=== PATIENT | female | born 1940 | race Caucasian/White ===

== ENCOUNTER 2020-02-22 09:31 | Outpatient (REF) | payer MEDICARE, OTHER, SELFPAY ==
[2020-02-22 11:07] LABS: Alanine Aminotransferase 8 U/L (0-31); Anion Gap 16 (12-20); Blood Urea Nitrogen 20 mg/dL (9-16); Calcium 10.1 mg/dL (8.4-10.2); Carbon Dioxide 24 mmol/L (22-29); Chloride 103 mmol/L (96-108); Estimated Glomerular Filt Rate 32; Potassium 4.1 mmol/l (3.3-5.1); Sodium 139 mmol/L (135-145)
== END 2020-02-22 09:32 | disposition home or self-care (01) ==
LOC: HO.LAB 09:31
PROVIDERS: PCP Family Medicine; Visit Provider Family Medicine
DX: I10 Essential (primary) hypertension (principal); E78.00 Pure hypercholesterolemia, unspecified; Z79.899 Other long term (current) drug therapy; E83.52 Hypercalcemia
CPT/HCPCS: 36415; 80051; 82310; 82550; 82565; 84460; 84520

== ENCOUNTER 2020-05-09 11:58 | Emergency (ER) | payer MEDICARE, OTHER, SELFPAY ==
--- NOTE | 2020-05-09 | ECG_ITS ---
Test Reason : FALL Blood Pressure : / mmHG Vent. Rate : 080 BPM Atrial Rate : 080 BPM P-R Int : 178 ms QRS Dur : 102 ms QT Int : 382 ms P-R-T Axes : 086 068 080 degrees QTc Int : 440 ms Normal sinus rhythm Possible Left atrial enlargement Nonspecific ST abnormality Abnormal ECG When compared with ECG of 01-MAY-2013 11:31, No significant change was found Referred By: Generic ED Physician Electronically Signed By:ERYN SÁNCHEZ MD
--- NOTE | ~2020-05-09 | XR_ITS ---
EXAMINATION: XR CHEST CLINICAL INFORMATION: Chest pain COMPARISON: Chest 04/19/2019 TECHNIQUE: Frontal view of the chest was obtained. FINDINGS: The lungs are well-expanded with bilateral apical pleural thickening and scarring. Heart size and pulmonary vascularity is normal. No gross bony abnormality seen. XR/XR chest 1V IMPRESSION: Bilateral apical pleural thickening and scarring. No acute process in the chest.
--- NOTE | ~2020-05-09 | CT_ITS ---
EXAMINATION: CT HEAD WITHOUT CONTRAST CLINICAL INFORMATION: Head injury COMPARISON: Previous head CT July 2006 TECHNIQUE: Contiguous axial imaging was performed from the skull base to vertex without intravenous administration of contrast. This CT examination was performed using dose optimization techniques as appropriate, variously including the following: *Automated exposure control *Adjustment of mA and/or kV according to patient size (this includes techniques or standardized protocols for targeted exams where dose is matched to indication/reason for exam; i.e. extremities or head) *Use of iterative reconstruction technique DLP: 631 mGy-cm FINDINGS: There is no evidence of acute intracranial hemorrhage or territorial infarction. No abnormal mass effect or midline shift is seen. Bronson to white matter differentiation is well preserved. No extra-axial fluid collections are identified. The ventricles are normal in size. There is no abnormal attenuation within the brain parenchyma. The osseous structures and soft tissues are normal. The mastoid air cells and visualized portions of the paranasal sinuses are well aerated. CT/CT head/brain wo con IMPRESSION: Unremarkable exam.
[2020-05-09 12:13] VITALS: BP 120/67; PULSE 82; TEMP 36.8; O2SAT 100; BMI 20.5
--- NOTE | 2020-05-09 14:04 | ED.SYNCOPE ---
HPI - Syncope General Chief Complaint: Fall Stated Complaint: FALL - HEAD INJURY Time Seen by Provider: 05/09/20 13:54 History of Present Illness HPI narrative: This is a 79 years old female presented to the emergency department stating that this morning at about 07:00 had syncopal episode, she states she was in the kitchen she end up in the floor. She denies any chest pain, shortness of breath, fever. She arrived fully ambulatory with the son MD complaint: loss of consciousness Onset (ago): hour(s) (7) Witnessed: No Related Data Home Medications Medication Instructions Recorded Confirmed amitriptyline 1 tab PO BEDTIME 05/09/20 05/09/20 bupropion HCl 1 tab PO QAM 05/09/20 05/09/20 gabapentin 1 cap PO DAILY 05/09/20 05/09/20 omeprazole 1 cap PO BID 05/09/20 05/09/20 simvastatin 1 tab PO DAILY 05/09/20 05/09/20 valsartan [Diovan] 1 tab PO DAILY 05/09/20 05/09/20 Previous Rx's Medication Instructions Recorded solifenacin 10 mg tablet 10 mg PO DAILY 30 Days #30 tab 03/04/20 Allergies Allergy/AdvReac Type Severity Reaction Status Date / Time citalopram [Celexa] Allergy Unknown Verified 02/16/19 00:00 paroxetine [Paxil] Allergy Unknown Verified 02/16/19 00:00 No Known Allergies Allergy Unverified 10/25/19 15:53 [No Known Allergies*] Review of Systems Review of Systems: Yes all other systems are reviewed and are negative ENT: Denies neck pain Cardiovascular: Cardiovascular: Denies chest pain Respiratory: Respiratory: Reports no additional respiratory complaints Musculoskeletal: Musculoskeletal: Denies neck pain Neurologic: Reports system reviewed and no additional complaints, except as documented PMFSH Social History Social History Alcohol intake: current Alcohol intake frequency: holidays/special occasions only Alcohol type: beer Smoking Status: Former smoker Smoked in Last 30 Days: No Use of substances other than those prescribed or required for medical reasons: No Advance Directives: No Advance Directives Information Provided: No Physical Exam Vital Signs: Vital Signs: Last Vital Signs Temp 97.6 F 05/09/20 14:08 Pulse 78 05/09/20 14:08 Resp 16 05/09/20 14:08 BP 150/69 H 05/09/20 14:08 Pulse Ox 100 05/09/20 14:08 Body Mass Index 20.5 Const: General: cooperative Orientation/consciousness: oriented to person, oriented to place, oriented to time and patient oriented x3 HENMT: Other: 3 cm laceration occipital area Head: Yes normal to inspection and Yes No palpable skull fracture present Eyes: General: appearance normal, both eyes and all related structures Neck: Neck: Yes normal visual inspection, Yes full ROM and Yes no lymphadenopathy Chest: Chest palpation & inspection: normal inspection of the chest Resp: Auscultation: clear to auscultation bilaterally Cardio: Rate: regular rate Rhythm: regular rhythm GI: Palpation (GI): Soft to palpation and nontender Skin: General skin exam: no rashes or lesions noted and elasticity normal Neuro: General: oriented to person, oriented to place, oriented to time and patient oriented x3 Course Reevaluation(s) Reevaluation #1: I discussed with the patient his son the possibility of admission, the patient wants to go home a she understand the risk . I told her we were going to monitor for 24 hours but she rather go home patient the son at bedside is comfortable with the plan. Patient declined admission Time: 16:52 Procedures Laceration head laceration: Site: scalp (3 cm laceration occipital area) Size (cm): 3 Description: linear Depth: simple, single layer Local Anesthetic: lidocaine 1% Skin layer closed with: other (Edilma #4) MDM - Syncope Lab Data Result diagrams: 05/09/20 14:34 05/09/20 14:34 Labs: Lab Results 05/09/20 05/09/20 05/09/20 Range/Units 14:34 14:34 14:34 WBC 7.5 (4.8-10.8) X10*3/uL RBC 4.13 L (4.20-5.50) X10*6/uL Hgb 12.3 (12.0-16.0) g/dl Hct 37.3 (37-47) % MCV 90.3 (80-98) fL MCH 29.8 (27.0-33.0) pg MCHC 33.0 (31.0-35.0) g/dl RDW 12.8 (11.0-16.0) % Plt Count 162 (160-400) X10*3/uL MPV 9.6 (9.4-12.3) fL Immature Gran % (Auto) 0.1 (0.0-0.4) % Neut % (Auto) 70.3 (45-73) % Lymph % (Auto) 22.7 (20-40) % [place] % (Auto) 6.4 (2-11) % Eos % (Auto) 0.0 (0-4) % Baso % (Auto) 0.5 (0-2) % Lymph # (Auto) 1.7 (1.2-4.9) X10*3/uL [place] # (Auto) 0.5 (0.1-1.2) X10*3/uL Eos # (Auto) 0.0 (0.0-0.4) X10*3/uL Baso # (Auto) 0.0 (0.0-0.2) X10*3/uL Abs Immat Gran (auto) 0.01 (0.00-0.03) X10*3/uL Absolute Neuts (auto) 5.2 (2.0-8.3) X10*3/uL Absolute Nucleated RBC 0.000 (0.0-0.012) X10*3/uL Nucleated RBC % (auto) 0.0 (0.0-0.2) /100WBC PT 12.9 (10.8-13.0) SEC INR 1.1 (0.9-1.1) Sodium 129 L (135-145) mmol/L Potassium 4.8 (3.3-5.1) mmol/L Chloride 101 (96-108) mmol/L Carbon Dioxide 24 (22-29) mmol/L Anion Gap 9 L (12-20) BUN 20 H (9-16) mg/dL Creatinine 1.61 H (0.5-1.4) mg/dL Estim Creat Clear Calc 25.1 Estimated GFR 31 Random Glucose 92 (60-115) mg/dL Calcium 9.8 (8.4-10.2) mg/dL Total Bilirubin 0.8 (0.0-1.0) mg/dL AST 32 H (5-31) U/L ALT 13 (0-31) U/L Alkaline Phosphatase 68 (39-117) U/L Troponin I High Sens (<3.5-17.0) ng/L Total Protein 6.9 (6.5-8.0) g/dL Albumin 4.2 (3.5-5.0) g/dL 05/09/20 Range/Units 14:34 WBC (4.8-10.8) X10*3/uL RBC (4.20-5.50) X10*6/uL Hgb (12.0-16.0) g/dl Hct (37-47) % MCV (80-98) fL MCH (27.0-33.0) pg MCHC (31.0-35.0) g/dl RDW (11.0-16.0) % Plt Count (160-400) X10*3/uL MPV (9.4-12.3) fL Immature Gran % (Auto) (0.0-0.4) % Neut % (Auto) (45-73) % Lymph % (Auto) (20-40) % [place] % (Auto) (2-11) % Eos % (Auto) (0-4) % Baso % (Auto) (0-2) % Lymph # (Auto) (1.2-4.9) X10*3/uL [place] # (Auto) (0.1-1.2) X10*3/uL Eos # (Auto) (0.0-0.4) X10*3/uL Baso # (Auto) (0.0-0.2) X10*3/uL Abs Immat Gran (auto) (0.00-0.03) X10*3/uL Absolute Neuts (auto) (2.0-8.3) X10*3/uL Absolute Nucleated RBC (0.0-0.012) X10*3/uL Nucleated RBC % (auto) (0.0-0.2) /100WBC PT (10.8-13.0) SEC INR (0.9-1.1) Sodium (135-145) mmol/L Potassium (3.3-5.1) mmol/L Chloride (96-108) mmol/L Carbon Dioxide (22-29) mmol/L Anion Gap (12-20) BUN (9-16) mg/dL Creatinine (0.5-1.4) mg/dL Estim Creat Clear Calc Estimated GFR Random Glucose (60-115) mg/dL Calcium (8.4-10.2) mg/dL Total Bilirubin (0.0-1.0) mg/dL AST (5-31) U/L ALT (0-31) U/L Alkaline Phosphatase (39-117) U/L Troponin I High Sens 6.5 (<3.5-17.0) ng/L Total Protein (6.5-8.0) g/dL Albumin (3.5-5.0) g/dL ECG Data Attestation: I personally reviewed and interpreted this ECG as follows: Pacemaker model: Electrocardiogram shows a normal sinus rhythm a rate is 80 normal intervals Discharge Plan Discharge Clinical Impression: Syncope, Laceration of scalp Patient Disposition: Home, Self-Care Instructions: Laceration (ED), Syncope (ED) Additional Instructions: You were seen today in the emergency room because of a laceration of the scalp and a syncopal episode you told us that you prefer to go home , the edilma that she will be removed in about 7-10 days either by your primary care physician or in the emergency department Prescriptions: No Action solifenacin 10 mg tablet 10 mg PO DAILY 30 Days Qty: 30 RF: 1 simvastatin 40 mg tablet 1 tab PO DAILY RF: 0 amitriptyline 25 mg tablet 1 tab PO BEDTIME RF: 0 valsartan [Diovan] 320 mg tablet 1 tab PO DAILY RF: 0 gabapentin 300 mg capsule 1 cap PO DAILY RF: 0 omeprazole 20 mg capsule,delayed release(DR/EC) 1 cap PO BID RF: 0 bupropion HCl 150 mg tablet extended release 24 hr 1 tab PO QAM RF: 0
[2020-05-09 14:08] VITALS: BP 150/69; PULSE 78; RESP 16; TEMP 36.4; O2SAT 100
[2020-05-09] MEDS: 0.9 % Sodium Chloride 1,000 ML 999 ML IVCONT (14:41)
[2020-05-09 14:47] LABS: MANUAL DIFF FLAG NO
[2020-05-09 14:48] LABS: Basophils Percent Auto 0.5 % (0-2); Hematocrit 37.3 % (37-47); Hemoglobin 12.3 g/dl (12.0-16.0); Imm Gran Abs Auto 0.01 X10*3/uL (0.00-0.03); Imm Gran Pct Auto 0.1 % (0.0-0.4); Lymphocytes Absolute Auto 1.7 X10*3/uL (1.2-4.9); Lymphocytes Percent Auto 22.7 % (20-40); Mean Corpuscular Hemoglobin 29.8 pg (27.0-33.0); Mean Corpuscular Volume 90.3 fL (80-98); Mean Platelet Volume 9.6 fL (9.4-12.3); Monocytes Absolute Auto 0.5 X10*3/uL (0.1-1.2); Monocytes Percent Auto 6.4 % (2-11); Neutrophils Absolute Auto 5.2 X10*3/uL (2.0-8.3); Neutrophils Percent Auto 70.3 % (45-73); Platelet Count 162 X10*3/uL (160-400); Red Blood Count 4.13 X10*6/uL (4.20-5.50); Red Cell Distribution Width 12.8 % (11.0-16.0); White Blood Count 7.5 X10*3/uL (4.8-10.8)
[2020-05-09 14:53] LABS: INTERNATIONAL NORM RATIO 1.1 (0.9-1.1); Prothrombin Time 12.9 SEC (10.8-13.0)
[2020-05-09 15:16] LABS: Alanine Aminotransferase 13 U/L (0-31); Albumin Level 4.2 g/dL (3.5-5.0); Alkaline Phosphatase 68 U/L (39-117); Anion Gap 9 (12-20); Aspartate Amino Transferase 32 U/L (5-31); Bilirubin Total 0.8 mg/dL (0.0-1.0); Blood Urea Nitrogen 20 mg/dL (9-16); Calcium 9.8 mg/dL (8.4-10.2); Carbon Dioxide 24 mmol/L (22-29); Chloride 101 mmol/L (96-108); Creatinine Clr Calc Pharmacy 25.1; Estimated Glomerular Filt Rate 31; Glucose Random 92 mg/dL (60-115); Potassium 4.8 mmol/L (3.3-5.1); Sodium 129 mmol/L (135-145); Total Protein 6.9 g/dL (6.5-8.0)
[2020-05-09 15:17] LABS: Troponin-I High Sensitivity 6.5 ng/L (<3.5-17.0)
[2020-05-09 16:55] VITALS: BP 143/61; PULSE 83
[2020-05-09 16:56] VITALS: BP 125/70; PULSE 78
[2020-05-09 16:57] VITALS: BP 126/65; PULSE 90
[2020-05-09] MEDS: Diphth,Pertus(ACell),Tet Adult 0.5 ML SYRINGE IM (17:25)
[2020-05-09] MEDS: Lidocaine HCl 1 % 20 ML VIAL SUBCUT (17:28)
== END 2020-05-09 17:46 | disposition home or self-care (01) ==
PROVIDERS: Emergency Provider Emergency Medicine; PCP Family Medicine
DX: S09.90XA Unspecified injury of head, initial encounter (principal); R55 Syncope and collapse; Z79.899 Other long term (current) drug therapy; Z87.891 Personal history of nicotine dependence; S01.01XA Laceration without foreign body of scalp, initial encounter; W18.30XA Fall on same level, unspecified, initial encounter; Y93.9 Activity, unspecified; Y92.9 Unspecified place or not applicable; Y99.9 Unspecified external cause status
CPT/HCPCS: 12002; 36415; 70450; 71045; 80053; 84484; 85025; 85610; 90471; 90715; 93005; 96360; 99284

== ENCOUNTER 2020-05-19 16:50 | Outpatient (REF) | payer MEDICARE, OTHER, SELFPAY ==
[2020-05-19 18:39] LABS: Alanine Aminotransferase 8 U/L (0-31); Albumin Level 4.4 g/dL (3.5-5.0); Alkaline Phosphatase 87 U/L (39-117); Anion Gap 16 (12-20); Aspartate Amino Transferase 19 U/L (5-31); Bilirubin Total 0.6 mg/dL (0.0-1.0); Blood Urea Nitrogen 22 mg/dL (9-16); Calcium 10.1 mg/dL (8.4-10.2); Carbon Dioxide 23 mmol/L (22-29); Chloride 103 mmol/L (96-108); Estimated Glomerular Filt Rate 36; Glucose Random 97 mg/dL (60-115); Potassium 4.4 mmol/L (3.3-5.1); Sodium 138 mmol/L (135-145); Total Protein 7.2 g/dL (6.5-8.0)
== END 2020-05-19 16:51 | disposition home or self-care (01) ==
LOC: HO.LDS 16:50
PROVIDERS: PCP Family Medicine; Visit Provider Family Medicine
DX: R63.4 Abnormal weight loss (principal)
CPT/HCPCS: 36415; 80053

== ENCOUNTER 2020-06-18 10:56 | Outpatient (REF) | payer MEDICARE, OTHER, SELFPAY ==
--- NOTE | ~2020-06-18 | MM_ITS ---
EXAMINATION: MM SCREENING DIGITAL BREAST TOMOSYNTHESIS, BILATERAL CLINICAL INFORMATION: Screening. Asymptomatic. The lifetime risk of breast cancer based on the Tyrer-Cuzick Model is 2%. COMPARISON: Mammography: 04/13/2019, 04/07/2018, 03/03/2017, 02/18/2016, 12/30/2014 TECHNIQUE: Digital breast tomosynthesis is performed in both the craniocaudal and mediolateral oblique views along with computer-aided detection (CAD). Synthesized 2D images are generated from the tomosynthesis. Additional right MLO and exaggerated left CC views are provided. FINDINGS: There are scattered areas of fibroglandular density (ACR BI-RADS breast composition Category b). There are no significant masses, abnormal calcifications, or other abnormalities. There are shifting fibroglandular densities related to positioning from year to year is expected. No developing density. No significant changes. MM/MM tomosynthesis screening BI IMPRESSION: No mammographic evidence of malignancy. ASSESSMENT: BI-RADS 2: Benign RECOMMENDATION: Routine annual mammography screening. This patient's information was entered into a reminder system with a target due date for their next mammogram.
== END 2020-06-18 10:57 | disposition home or self-care (01) ==
LOC: HO.MAMMO 10:56
PROVIDERS: Visit Provider Family Medicine
DX: Z12.31 Encounter for screening mammogram for malignant neoplasm of breast (principal)
CPT/HCPCS: 77063; 77067

== ENCOUNTER → 2020-06-30 11:00 | Outpatient (BNVA) | payer MEDICARE, OTHER, SELFPAY | PROVIDERS: PCP Family Medicine; Visit Provider Surgery | DX: K64.8 Other hemorrhoids (principal) | CPT/HCPCS: 46600; 99202 ==

== ENCOUNTER → 2020-08-01 09:27 | Outpatient (REF) | payer MEDICARE, OTHER, SELFPAY ==
--- NOTE | 2020-08-01 09:30 | CA_ITS ---
Transthoracic Echocardiogram Patient (Last, First, Middle): Imelda Carolina, Gender: Female Date of : 1940 Age: 79 Procedure Date: 08/01/2020 Procedure Type: Transthoracic Echocardiogram Location: OP Height: 162.56 cm Weight: 50.35 kg BSA: 1.52 m2 Heart Rate: bpm BP: 120 / 64 mmHg Disposal Man: HADLEY Referring MD: Omid Torres MD Symptoms: SOB Conclusions: - Normal left ventricular size, thickness, systolic function, and wall motion. - Normal right ventricular cavity size and systolic function. - Both atria are normal in size. No obvious extrinsic compression of the right atrium on this study. Findings Left Ventricle Normal left ventricular size, thickness, systolic function, and wall motion. The visually estimated ejection fraction is between 55-60%. Abnormal diastolic function is noted. Spectral Doppler is indicative of an impaired relaxation filling pattern. E/E prime ratio is <8, consistent with normal filling pressures. Right Ventricle Normal right ventricular cavity size and systolic function. Atria Both atria are normal in size. Aortic Valve There is mild calcification of the aortic valve. There is no aortic valve stenosis. There is no aortic valve regurgitation. Mitral Valve Normal mitral valve structure and function. There is trace mitral valve regurgitation. There is no mitral valve stenosis. Pulmonic Valve The pulmonic valve is likely normal. Tricuspid Valve Normal tricuspid valve structure and function. There is no tricuspid valve regurgitation. Normal right atrial pressure. There is no evidence of pulmonary hypertension. Great Vessels All visible segments of the aorta are normal in size. The pulmonary artery was not well visualized. Venous The inferior vena cava is normal in size and collapses greater than 50% with inspiration. Pericardium/Pleural There is no evidence of pericardial effusion. Prior Study Comparison No significant change compared to prior study dated: 03/03/2016. Measurements 2D Linear Measurements IVSd: 0.83 0.6-0.9/0.6-1.0 cm LVIDd: 4.07 3.9-5.3/4.2-5.9 cm LVIDd Index: 2.68 2.4-3.2/2.2-3.1 cm/m2 LVIDs: 2.73 2.0-3.6 cm LVPWd: 0.78 0.7-1.1 cm Ao Root: 2.80 2.1-3.5 cm LA Diam: 2.30 2.7-3.8/3.0-4.0 cm LAIDs Index: 1.51 1.5-2.3 cm/m2 LV Mass: 120.26 67-162/88-224 g LV Mass Index: 79.12 43-95/49-115 g/m2 LVOT Diam: 2.00 3.0+(-)1.3 cm 2D Systolic Function EF 4C: 63.80 >55% EF 2C: 65.20 >55% EF BiP: 65.10 >55% Mitral Valve MV Pk E: 0.56 MV PK A: 0.60 MV Decel Time: 148.00 E/A: 0.90 E'Lateral: 11.50 E'Medial: 6.53 E/E' Med: 8.60 E/E' Lat: 4.90 PHT: 43.00 MVA PHT: 5.12 Decel [place]: 3.80 Aortic Valve AoV Pk Mikel: 1.34 AoV Pk Grad: 7.00 LVOT LVOT Pk Mikel: 0.77 LVOT Mn Mikel: 0.50 LVOT VTI: 0.16 LVOT Pk Grad: 2.00 LVOT Mn Grad: 1.00 LVOT Diam: 2.00 LVOT Area: 3.14 Diastolic Function MV Pk E: 0.56 MV Pk A: 0.60 E/A: 0.90 E'Medial: 6.53 E/E' Med: 8.60 E' Laterial: 11.50 E/E' Lat: 4.90 Tricuspid Valve TR Pk Mikel: 2.40 TR Pk Grad: 23.00 RA Press: 3.00 RVSP: 26.00 Great Vessels Aorta Ao Root-2D: 2.80 2.0-3.7 cm Ao Asc: 3.10 2.1-3.4 cm Updated in Other Vendor System with Status of Final Rahul Castellanos MD electronically signed on 08/03/2020 1:52:59 PM with status of Final
== END ==
LOC: HO.CARD 09:27
PROVIDERS: Visit Provider Family Medicine
DX: R06.02 Shortness of breath (principal); R06.00 Dyspnea, unspecified
CPT/HCPCS: 93306

== ENCOUNTER → 2020-08-04 10:27 | Outpatient (BNVA) | payer MEDICARE, OTHER, SELFPAY | PROVIDERS: PCP Family Medicine; Visit Provider Surgery | DX: K64.4 Residual hemorrhoidal skin tags (principal); K64.8 Other hemorrhoids | CPT/HCPCS: Q3014 ==

== ENCOUNTER 2020-08-05 08:54 | Outpatient (REF) | payer MEDICARE, OTHER, SELFPAY ==
--- NOTE | 2020-08-05 | PFT_ITS ---
Forced vital capacity is normal. FEV1 normal. BFE51-05 at the lower limit of normal. MVV normal. Post bronchodilator therapy, there is a significant improvement in TGI14-04 and MVV. Total lung capacity and residual volume are normal. Diffusion capacity moderately decreased. CONCLUSION: A mild degree of small airway obstructive disorder is noted. Significant response to bronchodilator therapy indicates that the patient may have mild bronchial asthma. Clinical correlation is recommended. Compared to the results of PFT on 03/03/2016, the small airway obstructive disorder is actually slightly improved. Diffusion capacity is slightly decreased. Joe Esteves MD MSB/MODL / [id number]
== END 2020-08-05 08:55 | disposition home or self-care (01) ==
LOC: HO.RESP 08:54
PROVIDERS: PCP Family Medicine; Visit Provider Family Medicine
DX: R06.02 Shortness of breath (principal); R06.00 Dyspnea, unspecified
CPT/HCPCS: 94060; 94727; 94729

== ENCOUNTER 2020-09-22 07:58 | Outpatient (REF) | payer MEDICARE, OTHER, SELFPAY ==
--- NOTE | ~2020-09-22 | CT_ITS ---
EXAMINATION: CT ABDOMEN AND PELVIS WITHOUT CONTRAST CLINICAL INFORMATION: Anorexia. Weight loss. COMPARISON: Most recent CT abdomen/pelvis dated 04/15/2016. TECHNIQUE: Multidetector volumetric imaging was performed from the superior aspect of the liver through the pubic symphysis. Sagittal and coronal reformatted images were obtained on the technologist's workstation. This CT examination was performed using dose optimization techniques as appropriate, variously including the following: *Automated exposure control *Adjustment of mA and/or kV according to patient size (this includes techniques or standardized protocols for targeted exams where dose is matched to indication/reason for exam; i.e. extremities or head) *Use of iterative reconstruction technique DLP: 262 mGy-cm. FINDINGS: LUNG BASES: The visualized lung bases are unremarkable. LIVER, GALLBLADDER, AND BILIARY TREE: The liver is normal in size, shape, and attenuation. Stable small probable hepatic cysts and tiny parenchymal calcifications. No new focal hepatic lesion or biliary ductal dilatation is present. The gallbladder is nondistended with no evidence of radiopaque gallstones, gallbladder wall thickening, or obvious pericholecystic inflammatory changes. PANCREAS: Unremarkable. SPLEEN: Stable parenchymal calcification. ADRENAL GLANDS: Unremarkable. KIDNEYS AND URETERS: Asymmetric right renal atrophy, new when compared to the prior examination. No renal or ureteral stone. No hydronephrosis or hydroureter. BLADDER: Unremarkable. GASTROINTESTINAL TRACT: Colonic diverticulosis without wall thickening or associated inflammatory changes to suggest acute diverticulitis. Moderate air and stool throughout the colon, consistent with a degree of constipation. There is short segment circumferential wall thickening of the rectum which is asymmetric to the left. This area measures 3.1 cm in craniocaudal dimension and has the appearance of an apple core lesion. Findings are concerning for an underlying mass and direct visualization is recommended. No small or large bowel obstruction. Oral contrast reaches the colon. Appendix not seen, however, no right lower quadrant inflammatory change to suggest acute appendicitis. PERITONEAL CAVITY: No intra-abdominal free air or free fluid. No organized fluid collection/abscess formation. ABDOMINAL WALL: No significant hernia is appreciated. LYMPH NODES: No significant lymphadenopathy, however, evaluation is limited without IV contrast. VASCULAR: No abdominal aortic dilatation. Scattered atherosclerotic calcifications. Unremarkable IVC. PELVIC VISCERA: The uterus appears surgically absent. OSSEOUS STRUCTURES: Unremarkable. CT/CT abdomen pelvis wo con IMPRESSION: 1. There is circumferential rectal wall thickening and stricture measuring 3.1 cm in craniocaudal dimension with the appearance of an apple core lesion. Findings are concerning for an underlying mass and direct visualization is recommended. 2. Moderate air and stool throughout the colon, consistent with constipation. No small or large bowel obstruction. Diverticulosis without evidence of acute diverticulitis. 3. No intra-abdominal lymphadenopathy or ascites. 4. New asymmetric atrophy of the right kidney. No hydronephrosis or hydroureter. 5. Additional chronic findings are unchanged.
[2020-09-22 09:01] LABS: MANUAL DIFF FLAG NO
[2020-09-22 09:12] LABS: Basophils Absolute Auto 0.1 X10*3/uL (0.0-0.2); Basophils Percent Auto 0.8 % (0-2); Hematocrit 34.2 % (37-47); Hemoglobin 11.2 g/dl (12.0-16.0); Imm Gran Abs Auto 0.02 X10*3/uL (0.00-0.03); Imm Gran Pct Auto 0.3 % (0.0-0.4); Lymphocytes Absolute Auto 1.7 X10*3/uL (1.2-4.9); Lymphocytes Percent Auto 26.6 % (20-40); Mean Corpuscular HGB Conc 32.7 g/dl (31.0-35.0); Mean Corpuscular Hemoglobin 29.7 pg (27.0-33.0); Mean Corpuscular Volume 90.7 fL (80-98); Mean Platelet Volume 9.4 fL (9.4-12.3); Monocytes Absolute Auto 0.5 X10*3/uL (0.1-1.2); Monocytes Percent Auto 7.8 % (2-11); Neutrophils Absolute Auto 4.1 X10*3/uL (2.0-8.3); Neutrophils Percent Auto 64.5 % (45-73); Platelet Count 211 X10*3/uL (160-400); Red Blood Count 3.77 X10*6/uL (4.20-5.50); Red Cell Distribution Width 13.1 % (11.0-16.0); White Blood Count 6.4 X10*3/uL (4.8-10.8)
[2020-09-22 09:37] LABS: Alanine Aminotransferase 9 U/L (0-31); Albumin Level 4.2 g/dL (3.5-5.0); Alkaline Phosphatase 67 U/L (39-117); Anion Gap 14 (12-20); Aspartate Amino Transferase 18 U/L (5-31); Bilirubin Total 0.8 mg/dL (0.0-1.0); Blood Urea Nitrogen 15 mg/dL (9-16); Calcium 10.6 mg/dL (8.4-10.2); Carbon Dioxide 23 mmol/L (22-29); Chloride 105 mmol/L (96-108); Estimated Glomerular Filt Rate 32; Glucose Random 107 mg/dL (60-115); Potassium 4.4 mmol/L (3.3-5.1); Sodium 138 mmol/L (135-145); Total Protein 6.7 g/dL (6.5-8.0)
[2020-09-22] MEDS: Barium Sulfate Oral (Mocha) 450 ML ORAL.SUSP 900 ML PO (10:44)
== END 2020-09-22 07:59 | disposition home or self-care (01) ==
LOC: HO.CT 07:58
PROVIDERS: Visit Provider Family Medicine
DX: R63.0 Anorexia (principal); R63.4 Abnormal weight loss
CPT/HCPCS: 36415; 74176; 80053; 82550; 85025

== ENCOUNTER → 2020-09-24 09:59 | Outpatient (BNVA) | payer MEDICARE, OTHER, SELFPAY | PROVIDERS: PCP Family Medicine; Visit Provider Surgery | DX: K62.3 Rectal prolapse (principal) | CPT/HCPCS: 99212 ==

== ENCOUNTER → 2020-09-25 10:51 | Outpatient (BNVA) | payer MEDICARE, OTHER, SELFPAY | PROVIDERS: PCP Family Medicine; Visit Provider Nurse Practitioner | DX: R63.4 Abnormal weight loss (principal); J44.9 Chronic obstructive pulmonary disease, unspecified; N18.30 Chronic kidney disease, stage 3 unspecified; K22.10 Ulcer of esophagus without bleeding; K21.9 Gastro-esophageal reflux disease without esophagitis; K62.3 Rectal prolapse; K64.8 Other hemorrhoids; E78.00 Pure hypercholesterolemia, unspecified; I10 Essential (primary) hypertension; R91.8 Other nonspecific abnormal finding of lung field; Z88.8 Allergy status to other drugs, medicaments and biological substances | CPT/HCPCS: 99212 ==

== ENCOUNTER 2020-09-29 08:10 | Day surgery (SDC) | payer MEDICARE, OTHER, SELFPAY ==
--- NOTE | 2020-09-26 08:57 | HO.ANESPROP2 ---
Documented by User: Emmie Triana NP 09/26/20 09:01 HPI - Anesthesia Eval Consult details Narrative: 79yo F for Colonoscopy PMFSH Active Problems Active Problems: All Active Problems (Updated 09/25/20 @ 11:31 by CHIKA Aguirre) Erosive esophagitis (Acute) GERD (gastroesophageal reflux disease) (Acute) CKD (chronic kidney disease), stage III (Acute) COPD (chronic obstructive pulmonary disease) (Acute) Weight loss (Acute) Abnormal CT scan (Acute) Rectal prolapse (Acute) Internal and external prolapsed hemorrhoids (Acute) Past Medical History Medical History (Updated 09/26/20 @ 08:58 by Emmie Triana NP) Apical lung nodule BPV (benign positional vertigo) CKD (chronic kidney disease), stage III COPD (chronic obstructive pulmonary disease) Depression Fatty liver GERD (gastroesophageal reflux disease) HTN (hypertension) Internal and external prolapsed hemorrhoids PVC (premature ventricular contraction) Rectal prolapse Family History Family History Mother Lung cancer Sister Lung cancer Surgical History Surgical History History of appendectomy History of colonoscopy History of hernia surgery History of partial hysterectomy Social History Social History Alcohol intake: current Alcohol intake frequency: holidays/special occasions only Alcohol type: beer Advance Directives: No Advance Directives Information Provided: Yes Meds Allergies Allergy/AdvReac Type Severity Reaction Status Date / Time citalopram [Celexa] AdvReac Unknown sleepiness Verified 09/25/20 11:05 paroxetine [Paxil] AdvReac Unknown sleepiness Verified 09/25/20 11:05 Home Medications Medication Instructions Recorded Confirmed Last Taken Type bupropion HCl 150 mg 24 hr tablet, 1 tab PO QAM 05/09/20 09/24/20 Unknown History extended release gabapentin 300 mg capsule 1 cap PO DAILY 05/09/20 09/24/20 Unknown History simvastatin 40 mg tablet 1 tab PO DAILY 05/09/20 09/24/20 Unknown History albuterol sulfate 90 mcg/actuation 2 puff INHALATION Q6H PRN 06/30/20 09/24/20 Unknown History aerosol inhaler cholecalciferol (vitamin D3) 125 125 mcg PO DAILY 06/30/20 09/24/20 Unknown History mcg (5,000 unit) capsule multivitamin 1 tab PO DAILY 06/30/20 09/24/20 Unknown History sennosides 8.6 mg capsule (senna) 8.6 mg PO DAILY 06/30/20 09/24/20 Unknown History vitamin E acetate 134 mg (200 unit PO 06/30/20 09/24/20 Unknown History unit) capsule glucosamine HCl 500 mg tablet 500 mg PO DAILY 09/24/20 Unknown History meclizine 12.5 mg tablet 12.5 mg PO DAILY 09/24/20 Unknown History solifenacin 10 mg tablet (Vesicare) 10 mg PO DAILY 09/24/20 Unknown History valsartan 320 mg tablet (Diovan) 320 mg PO DAILY 09/24/20 Unknown History vitamin E 200 unit capsule 200 unit PO DAILY 09/24/20 Unknown History omeprazole 20 mg capsule,delayed 20 mg PO BID 09/25/20 09/25/20 Unknown History release Exam Exam Date and Time: September 26, 2020 0857 Pertinent Lab Results Pertinent Lab Results: Laboratory Tests 09/22/20 09/22/20 08:30 08:30 WBC 6.4 Hgb 11.2 L Hct 34.2 L Plt Count 211 D Sodium 138 Potassium 4.4 Chloride 105 Carbon Dioxide 23 BUN 15 Creatinine 1.56 H Narrative Narrative: ECHO 07/2020 Conclusions: - Normal left ventricular size, thickness, systolic function, and wall motion. ? - Normal right ventricular cavity size and systolic function.? ? - Both atria are normal in size. No obvious extrinsic compression of the right atrium on this study. ?? EKG 05/2020 Vent. Rate : 080 BPM ? ? Atrial Rate : 080 BPM ?? P-R Int : 178 ms? QRS Dur : 102 ms ? ? QT Int : 382 ms ? ? ? P-R-T Axes : 086 068 080 degrees ?? QTc Int : 440 ms ? Normal sinus rhythm Possible Left atrial enlargement Nonspecific ST abnormality Abnormal ECG When compared with ECG of 01-MAY-2013 11:31, No significant change was found Assessment and Plan Assessment Anesthesia Assessment: Chart Reviewed Documented by User: Lesley Chadwick MD 09/29/20 08:24 [facility] Past Medical History Medical History (Updated 09/26/20 @ 08:58 by Emmie Triana NP) Apical lung nodule BPV (benign positional vertigo) CKD (chronic kidney disease), stage III COPD (chronic obstructive pulmonary disease) Depression Fatty liver GERD (gastroesophageal reflux disease) HTN (hypertension) Internal and external prolapsed hemorrhoids PVC (premature ventricular contraction) Rectal prolapse Family History Family History Mother Lung cancer Sister Lung cancer Family history of problems with anesthesia: No Surgical History Surgical History History of appendectomy History of colonoscopy History of hernia surgery History of partial hysterectomy History of Problems with Anesthesia: No Social History Social History Alcohol intake: current Alcohol intake frequency: holidays/special occasions only Alcohol type: beer Advance Directives: No Advance Directives Information Provided: Yes Meds Allergies Allergy/AdvReac Type Severity Reaction Status Date / Time citalopram [Celexa] AdvReac Unknown sleepiness Verified 09/25/20 11:05 paroxetine [Paxil] AdvReac Unknown sleepiness Verified 09/25/20 11:05 Home Medications Medication Instructions Recorded Confirmed Last Taken Type bupropion HCl 150 mg 24 hr tablet, 1 tab PO QAM 05/09/20 09/24/20 Unknown History extended release gabapentin 300 mg capsule 1 cap PO DAILY 05/09/20 09/24/20 Unknown History simvastatin 40 mg tablet 1 tab PO DAILY 05/09/20 09/24/20 Unknown History albuterol sulfate 90 mcg/actuation 2 puff INHALATION Q6H PRN 06/30/20 09/24/20 Unknown History aerosol inhaler cholecalciferol (vitamin D3) 125 125 mcg PO DAILY 06/30/20 09/24/20 Unknown History mcg (5,000 unit) capsule multivitamin 1 tab PO DAILY 06/30/20 09/24/20 Unknown History sennosides 8.6 mg capsule (senna) 8.6 mg PO DAILY 06/30/20 09/24/20 Unknown History vitamin E acetate 134 mg (200 unit PO 06/30/20 09/24/20 Unknown History unit) capsule glucosamine HCl 500 mg tablet 500 mg PO DAILY 09/24/20 Unknown History meclizine 12.5 mg tablet 12.5 mg PO DAILY 09/24/20 Unknown History solifenacin 10 mg tablet (Vesicare) 10 mg PO DAILY 09/24/20 Unknown History valsartan 320 mg tablet (Diovan) 320 mg PO DAILY 09/24/20 Unknown History vitamin E 200 unit capsule 200 unit PO DAILY 09/24/20 Unknown History omeprazole 20 mg capsule,delayed 20 mg PO BID 09/25/20 09/25/20 Unknown History release Exam Airway Mallampati Class: II (Edntulous on bottom, metal prons for implants) TM Dist: >3cm Neck ROM: Full Denture: Upper Heart: rrr Lungs: cta Assessment and Plan Assessment Anesthesia Assessment: Anesthesia Plan Discussed and Chart Reviewed Final Anesthetic Review Family History of Problems with Anesthesia: No History of Problems with Anesthesia: No NPO: Yes ASA Class: III Final Preanesthetic Review: No Changes in Pt Med Stat, Meds/Allgs Chart Reviewed and Consent Obtained/Reviewed Patient Risk: Intermediate Procedure Risk: Intermediate Anesthetic Plan Anesthetic Plan: MAC: Disposition: Standard PACU
--- NOTE | 2020-09-29 08:26 | MHC.SHP ---
Pre-Procedural Eval Section A Date of Service: 09/29/20 The patient is an INPATIENT: No Changes since office visit: Yes New Medical Problems, Yes Changes in Medication and Yes Patient answered all questions; No Cold of Flu in the past 2 weeks The History & Physical has been completed within 30 days and I have reviewed it.: Yes Section B Chief Complaint: abnormal weight loss,abnormal findings Details of Present Illness: abdominal pain, wt loss, abnormal CT scan of rectum Present Medications: see Short Stay Collaborative assessment Medical History: Significant History (Apical lung nodule BPV (benign positional vertigo) Depression Fatty liver GERD (gastroesophageal reflux disease) HTN (hypertension) Internal and external prolapsed hemorrhoids PVC (premature ventricular contraction) Rectal prolapse) History of Previous Operations: Relevant previous surgery/procedure and date(s) (History of appendectomy History of colonoscopy History of hernia surgery History of partial hysterectomy) Allergies: Allergies Allergy/AdvReac Type Severity Reaction Status Date / Time citalopram [Celexa] AdvReac Unknown sleepiness Verified 09/25/20 11:05 paroxetine [Paxil] AdvReac Unknown sleepiness Verified 09/25/20 11:05 Review of Systems Sugical H&P ROS: Negative: Cardiovascular and Respiratory and Yes, Specify: Constitution (weight loss) Plan I have reviewed the history and physical and performed a pertinent physical examination on my patient. No changes have occurred unless specified.
[2020-09-29 08:36] VITALS: BP 108/48; PULSE 84; RESP 16; TEMP 36.6; O2SAT 99; BMI 18.1
[2020-09-29] MEDS: Sodium Phosphate,Mono-Dibasic 133 ML ENEMA PR (08:40)
[2020-09-29] MEDS: Lactated Ringers 1,000 ML 100 ML IVCONT (09:09)
--- NOTE | 2020-09-29 09:10 | P.OP_ITS ---
Operative Note Operative Note Date of Service: 09/29/20 Narrative: Pre-op diagnosis:?Abdominal pain, weight loss, abnormal CT scan of rectum Post-op diagnosis:?other (Colon polyps, diverticulosis, or hemorrhoids, rectal prolapse, melanosis coli) Procedure:? COLONOSCOPY TILL CECUM WITH BIOPSIES AND SNARE POLYPECTOMY Consent: Indications for the procedure and potential complications of bleeding, perforation, reaction to medications and missed diagnosis were discussed with the patient and informed consent was obtained. Instrument: Olympus PCF H 190 L variable stiffness pediatric colonoscope Monitoring: Vital signs and clinical assessment, intermittent blood pressure monitoring, continuous EKG monitoring, Pulse oximetry and Carbon Dioxide monitoring were done throughout the procedure. Colon withdrawl time was 30 minutes. Procedure: The patient was placed in the left lateral decubitis position and pre-procedure medications were administered. After a digital rectal examination of the ano-rectum, the video colonoscope was inserted into the rectum and advanced through the colon to the cecum. The colonoscope was slowly withdrawn in a retrograde panoramic fashion and the colon mucosa was carefully examined including a retroflexed view of the rectum. Findings and interventions are described below. Procedure Difficulty:? Colon was long and tortuous and there was recurrent loop formation - no maneuvers were required Findings: Terminal Ileum: Not evaluated Cecum:? Normal - Mild diffuse melanosis coli throughout the colon Ascending Colon:? A 4-5 mm sessile polyp in the proximal AC removed with a cold biopsy. Scattered diverticulosis Transverse Colon:? Three 3-5 mm sessile polyps removed with a cold bx and scattered diverticulosis Descending Colon:? Moderate diverticulosis Sigmoid Colon:? A 1 cms sessile polyp in the distal SC removed with a hot snare and severe diverticulosis Rectum:? Rectum examined carefully with multiple passes and no mass lesion seen.? Edematous and erythematous folds at 10-12 cms - multiple biopsies were obtained. Ano-rectum:? Pt was given a fleet enema on arrival and developed rectal prolapse when she expelled the enema which was reduced prior to starting the colonoscopy procedure.? Moderate internal hemorrhoids Colon preparation:? Good after copious irrigation Impression and Post Procedure Diagnosis: Colonoscopy Findings: Five small to medium sized polyps removed Moderate to severe diverticulosis seen in the entire colon, left > right Mild diffuse melanosis coli throughout the colon Rectum examined carefully with multiple passes and no mass lesion seen.? Edematous and erythematous folds at 10-12 cms - likely due to rectal prolapse - multiple biopsies were obtained. Abnormality seen on CT scan likely due to edematous folds from rectal prolapse. Pt was given a fleet enema on arrival and developed rectal prolapse when she expelled the enema which was reduced. Moderate hemorrhoids on retroflexed exam. Plan: Await pathology results Patient has an appointment on 10/16/20 in the [facility] with Ally Silver NP. Surgical repair for rectal prolapse acn be considered. Repeat Colonoscopy interval based on path results - in 3-5 years if polyps are adenomatous and 5 years if polyps are hyperplastic. Above findings were reviewed with the patient and colon polyps and diverticulosis, rectal prolapse handouts were given in the discharge area Surgeon:?Qing Jacobsen MD Anesthesia:?MAC (Negar Reyes CRNA) Was an Wheel Press Clerk used for this Procedure?:?Yes Wheel Press Clerk:?Patricia Chaparro Estimated blood loss (mL):?0 Pathology:?other (a. Ascending Colon Polyp? b. T ransverse Colon Polyps? c. Sigmoid Polyp? d. Rectal bx's r/o rectal prolapse) Condition:?stable Disposition:?PACU
--- NOTE | 2020-09-29 09:10 | PC.NURSE ---
During intake, patient states she was only able to finish 75% of her bowel prep due to gas pains and output is mushy borjas . Dr. Jacobsen notified. One fleet enema administered in stretcher with patient on left lateral side, tolerated well. Patient assisted to the bathroom and asked to ring when finished. Patient rang. Upon entering the bathroom patient stated that her rectum fell out a little and asked this nurse to push it back in . Patient stated this happens all the time and I have to get in the bathtub with warm water to push it back in myself . This nurse visualized rectal prolapse about 6 inches out of anus. Output in toilet was light borjas liquid. Prolapse left alone and patient assisted back to stretcher. Dr. Jacobsen notified and to assess prolapse during procedure. No new orders.
--- NOTE | 2020-09-29 09:30 | PC.NURSE ---
Anesthesia Dr. Constantino aware that patient last drank 8oz of bowel prep at 0130 this morning. Okay to proceed with procedure.
[2020-09-29 10:20] VITALS: BP 124/59; PULSE 83; RESP 16; TEMP 36.3; O2SAT 100
[2020-09-29 10:35] VITALS: BP 93/65; PULSE 74; RESP 16; O2SAT 98
== END 2020-09-29 11:06 | disposition home or self-care (01) ==
PROVIDERS: PCP Family Medicine; Visit Provider Internal Medicine Gastroenterology
PROC: 0DJD8ZZ Inspection of Lower Intestinal Tract, Via Natural or Artificial Opening Endoscopic (ICD-10-PCS; CPT 45378; principal; 2020-09-29 09:20)
DX: R63.4 Abnormal weight loss (principal); Z68.1 Body mass index [BMI] 19.9 or less, adult; R93.3 Abnormal findings on diagnostic imaging of other parts of digestive tract; Z86.010 Personal history of colon polyps; D12.2 Benign neoplasm of ascending colon; D12.3 Benign neoplasm of transverse colon; K63.5 Polyp of colon; K62.3 Rectal prolapse; K57.30 Diverticulosis of large intestine without perforation or abscess without bleeding; K64.8 Other hemorrhoids; K64.4 Residual hemorrhoidal skin tags; K63.89 Other specified diseases of intestine; K76.0 Fatty (change of) liver, not elsewhere classified; K22.10 Ulcer of esophagus without bleeding; K21.9 Gastro-esophageal reflux disease without esophagitis; J44.9 Chronic obstructive pulmonary disease, unspecified; R91.8 Other nonspecific abnormal finding of lung field; I12.9 Hypertensive chronic kidney disease with stage 1 through stage 4 chronic kidney disease, or unspecified chronic kidney disease; N18.30 Chronic kidney disease, stage 3 unspecified; I70.1 Atherosclerosis of renal artery; Z79.899 Other long term (current) drug therapy; Z88.8 Allergy status to other drugs, medicaments and biological substances; Z87.891 Personal history of nicotine dependence
CPT/HCPCS: 45385; 45380; 88305; J2370

== ENCOUNTER → 2020-10-16 11:47 | Outpatient (BNVA) | payer MEDICARE, OTHER, SELFPAY | PROVIDERS: PCP Family Medicine; Visit Provider Nurse Practitioner | DX: K22.10 Ulcer of esophagus without bleeding (principal); K21.9 Gastro-esophageal reflux disease without esophagitis; K62.3 Rectal prolapse; K64.8 Other hemorrhoids; D12.6 Benign neoplasm of colon, unspecified; R93.89 Abnormal findings on diagnostic imaging of other specified body structures; R63.4 Abnormal weight loss | CPT/HCPCS: 99212 ==

== ENCOUNTER → 2020-11-12 08:59 | Outpatient (BNVA) | payer MEDICARE, OTHER, SELFPAY | PROVIDERS: PCP Family Medicine; Visit Provider Surgery | DX: K62.3 Rectal prolapse (principal) | CPT/HCPCS: 99212 ==

== ENCOUNTER 2020-12-11 06:03 | Outpatient (REF) | payer MEDICARE, OTHER, SELFPAY ==
[2020-12-11 07:47] LABS: Blood Urea Nitrogen 22 mg/dL (9-16); Calcium 10.4 mg/dL (8.4-10.2); Estimated Glomerular Filt Rate 40
[2020-12-12 14:12] LABS: Calcium (PTHI) 9.9 mg/dL (8.6-10.4); PTHI 33 pg/mL (14-64)
== END 2020-12-11 06:04 | disposition home or self-care (01) ==
LOC: HO.LAB 06:03
PROVIDERS: PCP Family Medicine; Visit Provider Family Medicine
DX: E83.52 Hypercalcemia (principal); N18.31 Chronic kidney disease, stage 3a
CPT/HCPCS: 36415; 82310; 82565; 83970; 84520

== ENCOUNTER → 2020-12-16 11:00 | Outpatient (BNVA) | payer MEDICARE, OTHER, SELFPAY | PROVIDERS: PCP Family Medicine; Visit Provider Nurse Practitioner | DX: K21.9 Gastro-esophageal reflux disease without esophagitis (principal); K22.10 Ulcer of esophagus without bleeding; K62.3 Rectal prolapse; K64.8 Other hemorrhoids; D12.6 Benign neoplasm of colon, unspecified | CPT/HCPCS: 99212 ==

== ENCOUNTER 2020-12-30 14:42 | Outpatient (REF) | payer MEDICARE, OTHER, SELFPAY ==
[2020-12-30 15:43] LABS: Influenza A PCR NEGATIVE (Negative); Influenza B PCR NEGATIVE (Negative); Resp Syncy Virus RNA Qual PCR NEGATIVE (Negative); SARS COV2 PCR INHOUSE POSITIVE (Negative)
== END 2020-12-30 14:43 | disposition home or self-care (01) ==
LOC: HO.LAB 14:42
PROVIDERS: PCP Family Medicine; Visit Provider Family Medicine
DX: Z20.822 Contact with and (suspected) exposure to COVID-19 (principal); R53.83 Other fatigue; R05.9 Cough, unspecified
CPT/HCPCS: 0241U; 36415; C9803

== ENCOUNTER → 2021-04-10 14:34 | Outpatient (BNVA) | payer MEDICARE, OTHER, SELFPAY | PROVIDERS: PCP Family Medicine | DX: Z13.89 Encounter for screening for other disorder (principal) | CPT/HCPCS: Q3014 ==

== ENCOUNTER 2021-05-05 08:25 | Outpatient (REF) | payer MEDICARE, OTHER, SELFPAY ==
[2021-05-05 08:49] LABS: MANUAL DIFF FLAG NO
[2021-05-05 09:09] LABS: Basophils Percent Auto 0.7 % (0-2); Hematocrit 37.7 % (37.0-47.0); Hemoglobin 12.3 g/dl (12.0-16.0); Imm Gran Abs Auto 0.01 X10*3/uL (0.00-0.03); Imm Gran Pct Auto 0.2 % (0.0-0.4); Lymphocytes Absolute Auto 1.6 X10*3/uL (1.2-4.9); Lymphocytes Percent Auto 28.2 % (20-40); Mean Corpuscular HGB Conc 32.6 g/dl (31.0-35.0); Mean Corpuscular Hemoglobin 29.4 pg (27.0-33.0); Monocytes Absolute Auto 0.5 X10*3/uL (0.1-1.2); Monocytes Percent Auto 8.1 % (2-11); Neutrophils Absolute Auto 3.5 x10*3/uL (2.0-8.3); Neutrophils Percent Auto 62.8 % (45-73); Platelet Count 169 X10*3/uL (160-400); Red Blood Count 4.19 X10*6/uL (4.20-5.50); Red Cell Distribution Width 12.7 % (11.0-16.0); White Blood Count 5.5 X10*3/uL (4.8-10.8)
[2021-05-05 09:45] LABS: Alanine Aminotransferase 13 U/L (0-31); Albumin Level 4.2 g/dL (3.5-5.0); Alkaline Phosphatase 80 U/L (39-117); Anion Gap 13 (12-20); Aspartate Amino Transferase 21 U/L (5-31); Bilirubin Direct 0.2 mg/dL (0.0-0.5); Bilirubin Total 0.5 mg/dL (0.0-1.0); Blood Urea Nitrogen 24 mg/dL (9-16); Carbon Dioxide 26 mmol/L (22-29); Chloride 107 mmol/L (96-108); Estimated Glomerular Filt Rate 37; Potassium 4.9 mmol/L (3.3-5.1); Sodium 141 mmol/L (135-145); Total Protein 6.8 g/dL (6.5-8.0)
== END 2021-05-05 08:26 | disposition home or self-care (01) ==
LOC: HO.LAB 08:25
PROVIDERS: PCP Family Medicine; Visit Provider Family Medicine
DX: I10 Essential (primary) hypertension (principal); D64.9 Anemia, unspecified; K75.81 Nonalcoholic steatohepatitis (NASH)
CPT/HCPCS: 36415; 80051; 80076; 82565; 84520; 85025

== ENCOUNTER → 2021-05-08 15:49 | Outpatient (BNVA) | payer MEDICARE, OTHER, SELFPAY | PROVIDERS: PCP Family Medicine; Referring Provider Family Medicine; Visit Provider Nurse Practitioner | DX: K21.9 Gastro-esophageal reflux disease without esophagitis (principal); K22.10 Ulcer of esophagus without bleeding; K62.3 Rectal prolapse; Z79.899 Other long term (current) drug therapy | CPT/HCPCS: 99212 ==

== ENCOUNTER 2021-06-24 10:37 | Outpatient (REF) | payer MEDICARE, OTHER, SELFPAY ==
--- NOTE | ~2021-06-24 | MM_ITS ---
EXAMINATION: MM SCREENING DIGITAL BREAST TOMOSYNTHESIS, BILATERAL CLINICAL INFORMATION: Screening. Asymptomatic. The lifetime risk of breast cancer based on the Tyrer-Cuzick Model is 2%. COMPARISON: Mammography: 06/18/2020, 04/13/2019, 04/07/2018. CT abdomen and pelvis 09/22/2020. TECHNIQUE: Digital breast tomosynthesis is performed in both the craniocaudal and mediolateral oblique views along with computer-aided detection (CAD). Synthesized 2D images are generated from the tomosynthesis. Additional bilateral exaggerated CC views are provided. FINDINGS: There are scattered areas of fibroglandular density (ACR BI-RADS breast composition Category b). The breasts are symmetrically smaller consistent with systemic weight loss. Parenchymal pattern is otherwise similar to prior studies. There is no significant mass or architectural abnormality or abnormal calcific. The axilla and skin contours are unremarkable. MM/MM tomosynthesis screening BI IMPRESSION: No mammographic evidence of breast malignancy. ASSESSMENT: BI-RADS 2: Benign RECOMMENDATION: Routine annual mammography screening. This patient's information was entered into a reminder system with a target due date for their next mammogram.
== END 2021-06-24 10:38 | disposition home or self-care (01) ==
LOC: HO.MAMMO 10:37
PROVIDERS: PCP Family Medicine; Visit Provider Family Medicine
DX: Z12.31 Encounter for screening mammogram for malignant neoplasm of breast (principal)
CPT/HCPCS: 77063; 77067

== ENCOUNTER 2021-11-19 08:56 | Outpatient (REF) | payer MEDICARE, OTHER, SELFPAY ==
[2021-11-19 10:57] LABS: Alanine Aminotransferase 7 U/L (0-31); Albumin Level 4.1 g/dL (3.5-5.0); Alkaline Phosphatase 65 U/L (39-117); Aspartate Amino Transferase 19 U/L (5-31); Bilirubin Total 0.6 mg/dL (0.0-1.0); Blood Urea Nitrogen 20 mg/dL (9-16); Calcium 10.1 mg/dL (8.4-10.2); Estimated Glomerular Filt Rate 40; Glucose Random 103 mg/dL (60-115); Total Protein 6.5 g/dL (6.5-8.0)
[2021-11-19 11:09] LABS: Anion Gap 14 (12-20); Carbon Dioxide 24 mmol/L (22-29); Chloride 109 mmol/L (96-108); Potassium 4.7 mmol/L (3.3-5.1); Sodium 142 mmol/L (135-145)
== END 2021-11-19 08:57 | disposition home or self-care (01) ==
LOC: HO.LAB 08:56
PROVIDERS: PCP Family Medicine; Visit Provider Family Medicine
DX: I12.9 Hypertensive chronic kidney disease with stage 1 through stage 4 chronic kidney disease, or unspecified chronic kidney disease (principal); N18.30 Chronic kidney disease, stage 3 unspecified; E83.52 Hypercalcemia
CPT/HCPCS: 36415; 80053

== ENCOUNTER → 2021-12-17 11:43 | Outpatient (BNVA) | payer MEDICARE, OTHER, SELFPAY | PROVIDERS: PCP Family Medicine; Visit Provider Nurse Practitioner | DX: K21.9 Gastro-esophageal reflux disease without esophagitis (principal); K22.10 Ulcer of esophagus without bleeding; K62.3 Rectal prolapse; D12.6 Benign neoplasm of colon, unspecified | CPT/HCPCS: 99212 ==

== ENCOUNTER → 2022-01-14 09:24 | Outpatient (BNVA) | payer MEDICARE, OTHER, SELFPAY | PROVIDERS: PCP Family Medicine; Visit Provider Surgery | DX: K62.3 Rectal prolapse (principal) | CPT/HCPCS: 99212 ==

== ENCOUNTER → 2022-04-09 09:41 | Outpatient (BNVA) | payer MEDICARE, OTHER, SELFPAY | PROVIDERS: PCP Family Medicine; Visit Provider Nurse Practitioner Family | DX: N32.81 Overactive bladder (principal); R32 Unspecified urinary incontinence | CPT/HCPCS: 51798; 99212 ==

== ENCOUNTER → 2022-05-19 08:55 | Outpatient (BNVA) | payer MEDICARE, OTHER, SELFPAY | PROVIDERS: PCP Family Medicine; Visit Provider Nurse Practitioner Family | DX: N32.81 Overactive bladder (principal) | CPT/HCPCS: 51798; 99212 ==

== ENCOUNTER 2022-06-30 10:25 | Outpatient (REF) | payer MEDICARE, OTHER, SELFPAY ==
--- NOTE | ~2022-06-30 | MM_ITS ---
EXAMINATION: MM SCREENING DIGITAL BREAST TOMOSYNTHESIS, BILATERAL CLINICAL INFORMATION: Screening. Asymptomatic. The lifetime risk of breast cancer based on the Tyrer-Cuzick Model is 1.4%. COMPARISON: Mammography: June 24, 2021 and studies dating back to August 25, 2011 TECHNIQUE: Digital breast tomosynthesis is performed in both the craniocaudal and mediolateral oblique views along with computer-aided detection (CAD). Synthesized 2D images are generated from the tomosynthesis. FINDINGS: There are scattered areas of fibroglandular density (ACR BI-RADS breast composition Category b). There is a stable parenchymal pattern of the right breast. On craniocaudal view about the central aspect of the left breast there is an asymmetric density which I cannot definitely say was present previously for which spot compression view is recommended. This may represent superimposition of fibroglandular tissue. MM/MM tomosynthesis screening BI IMPRESSION: Left breast density for further evaluation as described. ASSESSMENT: BI-RADS 0: Incomplete - Need Additional Imaging Evaluation RECOMMENDATION: 1. Additional views of the left breast 2. Targeted ultrasound if warranted after review of the additional views. 3. Radiology department staff will contact the patient for additional imaging. This patient's information was entered into a reminder system with a target due date for their next mammogram.
[2022-06-30 11:18] LABS: MANUAL DIFF FLAG NO
[2022-06-30 11:33] LABS: Basophils Percent Auto 0.7 % (0-2); Eosinophils Percent Auto 0.7 % (0-4); Hematocrit 37.3 % (37.0-47.0); Hemoglobin 12.3 g/dl (12.0-16.0); Imm Gran Abs Auto 0.02 X10*3/uL (0.00-0.03); Imm Gran Pct Auto 0.4 % (0.0-0.4); Lymphocytes Absolute Auto 1.2 X10*3/uL (1.2-4.9); Lymphocytes Percent Auto 22.6 % (20-40); Mean Corpuscular Hemoglobin 29.6 pg (27.0-33.0); Mean Corpuscular Volume 89.7 fL (80.0-98.0); Monocytes Absolute Auto 0.4 X10*3/uL (0.1-1.2); Monocytes Percent Auto 7.5 % (2-11); Neutrophils Absolute Auto 3.7 x10*3/uL (2.0-8.3); Neutrophils Percent Auto 68.1 % (45-73); Platelet Count 154 X10*3/uL (160-400); Red Blood Count 4.16 X10*6/uL (4.20-5.50); Red Cell Distribution Width 12.9 % (11.0-16.0); White Blood Count 5.5 X10*3/uL (4.8-10.8)
[2022-06-30 12:31] LABS: Alanine Aminotransferase 9 U/L (0-31); Anion Gap 16 (12-20); Aspartate Amino Transferase 18 U/L (5-31); Calcium 10.4 mg/dL (8.4-10.2); Carbon Dioxide 23 mmol/L (22-29); Chloride 104 mmol/L (96-108); Estimated Glomerular Filt Rate 33; Potassium 4.6 mmol/L (3.3-5.1); Sodium 138 mmol/L (135-145)
== END 2022-06-30 10:26 | disposition home or self-care (01) ==
LOC: HO.MAMMO 10:25
PROVIDERS: PCP Family Medicine; Visit Provider Family Medicine
DX: Z12.31 Encounter for screening mammogram for malignant neoplasm of breast (principal); I10 Essential (primary) hypertension; E78.00 Pure hypercholesterolemia, unspecified; R42 Dizziness and giddiness; Z79.899 Other long term (current) drug therapy
CPT/HCPCS: 36415; 77063; 77067; 80051; 82310; 82550; 82565; 84450; 84460; 85025

== ENCOUNTER → 2022-07-01 11:01 | Outpatient (BNVA) | payer MEDICARE, OTHER, SELFPAY | PROVIDERS: PCP Family Medicine; Referring Provider Family Medicine; Visit Provider Nurse Practitioner | DX: N32.81 Overactive bladder (principal); R32 Unspecified urinary incontinence; K22.10 Ulcer of esophagus without bleeding; K21.9 Gastro-esophageal reflux disease without esophagitis; K62.3 Rectal prolapse; D12.6 Benign neoplasm of colon, unspecified | CPT/HCPCS: 51798; 99212 ==

== ENCOUNTER 2022-07-22 10:19 | Outpatient (REF) | payer MEDICARE, OTHER, SELFPAY ==
--- NOTE | ~2022-07-22 | MM_ITS ---
EXAMINATION: MM DIAGNOSTIC DIGITAL BREAST TOMOSYNTHESIS, LEFT CLINICAL INFORMATION: Recall from screening for question of asymmetric density central breast on CC view. COMPARISON: Prior mammography exams including most recent 06/30/2022. TECHNIQUE: Digital breast tomosynthesis is performed. 2D images are generated from the tomosynthesis. The following views are obtained: Spot CC, standard ML FINDINGS: There are scattered areas of fibroglandular density (ACR BI-RADS breast composition Category b). The additional views show no asymmetric density, developing density, mass, architectural abnormality. There are no significant changes from prior studies. Results are discussed with the patient at time of visit. MM/MM tomosynthesis added views L IMPRESSION: Additional views show no developing density or significant changes from prior studies. ASSESSMENT: BI-RADS 1: Negative RECOMMENDATION: Routine annual mammography screening. This patient's information was entered into a reminder system with a target due date for their next mammogram.
== END 2022-07-22 10:20 | disposition home or self-care (01) ==
LOC: HO.MAMMO 10:19
PROVIDERS: PCP Family Medicine; Visit Provider Family Medicine
DX: R92.2 Inconclusive mammogram (principal)
CPT/HCPCS: 77061; 77065

== ENCOUNTER 2022-12-17 14:49 | Outpatient (AMB) | payer MEDICARE, OTHER, SELFPAY ==
--- NOTE | 2022-12-17 14:54 | MHC.OFFVIS ---
Intake Intake Visit Reasons: PVR(Medication Issues) Intake Note: Patient is present for follow up OAB/PVR/medication issues Urology Medications: Vesicare Blood Thinner: none PVR: 0ml's Mounter Clarinets Required: No Accompanied by: Self / Same As Patient Allergies citalopram [Celexa] Adverse Reaction (Unknown, Verified 12/17/22 15:50) sleepiness paroxetine [Paxil] Adverse Reaction (Unknown, Verified 12/17/22 15:50) sleepiness Medication List - Last Reconciled 12/17/22 by GLADYS Aguilar albuterol sulfate 90 mcg/actuation 2 puffs inhalation Q6H PRN bupropion HCl 1 tab PO QAM cholecalciferol (vitamin D3) 125 mcg PO DAILY glucosamine HCl 500 mg PO DAILY multivitamin 1 tab PO DAILY pantoprazole 40 mg PO BID psyllium seed (sugar) (Metamucil (sugar) oral powder) 1 tbsp PO BID simvastatin 1 tab PO DAILY tolterodine ER (Detrol LA) 4 mg PO DAILY 90 days valsartan (Diovan) 320 mg PO DAILY vitamin E 200 units PO DAILY vitamin E acetate units PO HPI HPI Comments History of Present Illness Details Imelda is a pleasant 82-year-old female patient of . She has a past medical history of chronic kidney disease stage 3, COPD, hypertension, benign positional vertigo, PVCs, fatty liver, GERD, depression, rectal prolapse, and hemorrhoids. She presents to the office today for follow-up of her urinary incontinence and overactive bladder. Of note, patient was seen approximately 6 months ago at which time she was started on Myrbetriq however she presents to the office today due to insurance issues with coverage of medications. In discussion with the patient today she reports currently not being on any overactive bladder medications due to insurance coverage. She brings with her a list of medications given by [facility] that are within her network. She discusses at length her frustration regarding her lower urinary tract symptoms. Discussed BEERS criteria at length with the patient. She reports urinary frequency, urinary urgency, and episodes of incontinence if not near a bathroom. She otherwise denies hematuria, dysuria, foul-smelling urine, flank pain, fever, and or chills. In office urinalysis results reviewed with the patient today. PVR 0 mL. Again discussed further workup with renal/bladder ultrasound for further assessment evaluation as well as pelvic floor therapy. Patient does endorse to drinking large amounts of coffee daily. Discussed at length bladder triggers/irritants. [facility] Medical History Urinary incontinence CKD (chronic kidney disease), stage III COPD (chronic obstructive pulmonary disease) HTN (hypertension) BPV (benign positional vertigo) PVC (premature ventricular contraction) Apical lung nodule Fatty liver GERD (gastroesophageal reflux disease) Depression Rectal prolapse Internal and external prolapsed hemorrhoids Surgical History History of esophagogastroduodenoscopy (EGD) History of colonoscopy History of hernia surgery History of partial hysterectomy History of appendectomy Family History Mother Lung cancer Sister Lung cancer Social History Alcohol intake: current Alcohol intake frequency: holidays/special occasions only Alcohol type: beer Patient Tobacco Use Status: Former Tobacco user Tobacco use type: Cigarette Years Smoked: 50 Review of Systems Const Reports as per HPI Eyes Reports no additional complaints Card Reports as per HPI Resp Reports as per HPI GI Reports as per HPI Reports as per HPI Musc Reports no additional complaints Neuro Reports as per HPI Psych Reports as per HPI Physical Exam Const General: cooperative, comfortable, no acute distress, well developed, alert and awake Orientation/consciousness: patient oriented x3 HEENT Head: Yes normal to inspection, Yes normocephalic and Yes atraumatic Ears: hearing grossly normal bilaterally Eyes General: appearance normal, both eyes and all related structures Neck Neck: Yes normal visual inspection and Yes trachea midline Chest Chest palpation & inspection: normal inspection of the chest Resp Effort & Inspection: normal respiratory effort and able to speak in complete sentences Cardio Rate: regular rate GI Inspection: Yes normal to inspection General: Yes no CVA tenderness Back/Spine/Pelvis Back: no CVA tenderness Skin General skin exam: no rashes or lesions noted Neuro General: patient oriented x3 Extrem General: Yes normal to inspection Psych Appearance: grossly normal and well kempt Mental Status: mental status grossly normal Speech and movement: Normal speech and movement present and Clear speech present Affect: normal affect Attitude: cooperative Thought process: Normal thought process present Thought content: Normal thought content present Insight: Fair insight present (Psych) Judgement: Fair judgement present (Psych) Office Procedures Post Void Residual Post Residual Void Post Void Residual (PVR): 0 [id number] Void Residual by ultrasound Results AMB Urinalysis, Automated UA Leukoctes 0 Adelaida/uL Last Edit by Telanetix on 12/17/22 15:37 UA Nitrite Negative Last Edit by Telanetix on 12/17/22 15:37 UA Urobilinogen 0.2 mg/dL Last Edit by Telanetix on 12/17/22 15:37 UA Protein 15 mg/dL Last Edit by Telanetix on 12/17/22 15:37 UA pH 6.0 Last Edit by Telanetix on 12/17/22 15:37 UA Blood 0 Javier/uL Last Edit by Telanetix on 12/17/22 15:37 UA Specific [place] 1.020 Last Edit by Telanetix on 12/17/22 15:37 UA Ketone Negative Last Edit by Telanetix on 12/17/22 15:37 UA Bilirubin 0 mg/dL Last Edit by Telanetix on 12/17/22 15:37 UA Glucose 0 mg/dL Last Edit by Telanetix on 12/17/22 15:37 Results Reviewed Results Reviewed: Laboratory Last Values Urine pH (Auto) 6.0 12/17/22 15:00 Specific [place] (Auto) 1.020 12/17/22 15:00 Urine Protein (Auto) 15 mg/dL 12/17/22 15:00 Glucose (UA)(Auto) 0 mg/dL 12/17/22 15:00 Urine Ketones (Auto) Negative 12/17/22 15:00 Urine Blood (Auto) 0 Javier/uL 12/17/22 15:00 Urine Nitrite (Auto) Negative 12/17/22 15:00 Urine Bilirubin (Auto) 0 mg/dL 12/17/22 15:00 Urine Urobilinogen (Auto) 0.2 mg/dL 12/17/22 15:00 Leukocyte Esterase (Auto) 0 Adelaida/uL 12/17/22 15:00 Assessment & Plan Assessment & Plan (1) Overactive bladder: Code(s): N32.81 - Overactive bladder (2) Urinary incontinence: Code(s): R32 - Unspecified urinary incontinence Plan In office urinalysis results reviewed with the patient today; as noted above. PVR 0 mL. Start tolterodine 4 mg daily as discussed and prescribed Discussed at length bladder triggers/irritants. Discussed pelvic floor therapy as well as retroperitoneal ultrasound for further assessment evaluation however patient declines at this time. Discussed possible near future in office cystoscopy and or urodynamics for further assessment evaluation Discussed, educated, encouraged on the importance of drinking adequate amount of fluid daily. Follow-up in 6 weeks with PVR; or sooner with any issues, concerns, and or questions. Orders: Orders AMB Urinalysis Automated 12/17/22 Z13.9 - Encounter for screening, unspecified AMB Post Void Residual by ultrasound 12/17/22 N32.81 - Overactive bladder Medications: Changed From tolterodine ER (Detrol LA) 4 mg PO DAILY N32.81 - Overactive bladder To tolterodine ER (Detrol LA) 4 mg PO DAILY 90 days 90 caps 0RF N32.81 - Overactive bladder Discontinued mirabegron ER (Myrbetriq) Discontinued Reason: Insurance Denied 25 mg PO DAILY 30 days 30 tabs 1RF N30.10 - Interstitial cystitis (chronic) without hematuria, N32.81 - Overactive bladder, R35.1 - Nocturia, R39.15 - Urgency of urination fesoterodine ER (Toviaz) Discontinued Reason: Insurance Denied 4 mg PO DAILY 90 days 90 tabs 0RF Patient Instructions: The patient had an opportunity to ask questions regarding the treatment plan. All questions were answered. Physical exam, labs, and imaging were discussed and reviewed in detail. As well as risks, benefits, and discussion of treatment choices. No major barriers to understanding were identified. The patient expressed understanding and agreement with the above treatment plan. The patient was made aware they should contact our office by phone for worsening of their current condition, the appearance of new symptoms, or with any questions or concerns. Compliance is encouraged with any medications and follow up testing that is ordered. It is a privilege to be allowed the opportunity to participate in? your urological care.? Again, if you have any questions or concerns If you have any questions or concerns please do not hesitate to contact me. The office is [phone]. This note is constructed using voice recognition software. While every effort has been made to ensure accuracy audience coordinator errors may have been included. Yours sincerely, CHARLIE Aguilar-REYMUNDO Coding Level of Care Code Est Pt Level 4 (05082) Diagnoses Overactive bladder N32.81 Urinary incontinence R32 CPT Codes Post Residual Void - PVR CPT Code: 48493-Eyla Void Residual by ultrasound ([id number])
== END 2022-12-17 15:44 | disposition home or self-care (01) ==
PROVIDERS: PCP Family Medicine; Visit Provider Nurse Practitioner Family
DX: N32.81 Overactive bladder (principal); R32 Unspecified urinary incontinence
CPT/HCPCS: 99214

== ENCOUNTER → 2022-12-17 14:49 | Outpatient (BNVA) | payer MEDICARE, OTHER, SELFPAY | PROVIDERS: PCP Family Medicine; Visit Provider Nurse Practitioner Family | DX: N32.81 Overactive bladder (principal); R32 Unspecified urinary incontinence | CPT/HCPCS: 51798; 81003; 99212 ==

== ENCOUNTER 2022-12-29 10:03 | Outpatient (AMB) | payer MEDICARE, OTHER, SELFPAY ==
[2022-12-29 10:11] VITALS: BP 177/84; PULSE 66; BMI 18.1
--- NOTE | 2022-12-29 10:11 | A.OFFVIS_ITS ---
Intake Vital Signs 12/29/22 10:11 Height 5 ft 5 in Weight 109 lb BMI 18.1 BP 177/84 H Blood Pressure Location Rt brachial Position Sitting Pulse 66 Intake Visit Reasons: 6 month fu Intake Note: Patient presents to in office visit today in 6 months follow up of GERD, CIC, and rectocele. CC: Patient states her rectal prolapse is what bothers her the most right now. 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 She has discussed options with surgery and her PCP,and for now she will just live with it. She continues on the senna and the fiber. ROV 6 mos. (2) GERD (gastroesophageal reflux diseas e): Code(s): K21.9 - Gastro-esophageal reflux disease without esophagitis (3) Rectal prolapse: Code(s): K62.3 - Rectal prolapse (4) Tubular adenoma of colon: Comment: scope repeat in 3 years due to mor e than 3 polyps Code(s): D12.6 - Benign neoplasm of colon, unspecified Medications: Refilled psyllium seed (sug ar) (Metamucil (ureña gar) oral powder) 1 tbsp PO BID 1,2 54 grams 6RF pantoprazole 40 mg PO BID 180 tabs 3RF Laboratory Tests 06/30/22 11:17 WBC 5.5 Hgb 12.3 Hct 37.3 Plt Count 154 L Estimated GFR 33 AST 18 ALT 9 TODAY'S VISIT She is due in 2023 for repeat colonoscopy due to large polyps removed in 2020. Her GERD continues to be well controlled on her pantoprazole 40mg bid, she says she stopped taking her pills for a while, but then she had an episode of severe HB. She has not opted for surgery for her severe rectal prolapse as suggested in the past by her PCP. She has COPD and chronic kidney disease stage 4 with no known cardiac problems. There are no prior problems with anesthesia or sedation. No ID problems. She has >1cm x 2 polyps on her last scope in 2020. [facility] Medical History Urinary incontinence CKD (chronic kidney disease), stage III COPD (chronic obstructive pulmonary disease) HTN (hypertension) BPV (benign positional vertigo) PVC (premature ventricular contraction) Apical lung nodule Fatty liver GERD (gastroesophageal reflux disease) Depression Rectal prolapse Internal and external prolapsed hemorrhoids Surgical History History of esophagogastroduodenoscopy (EGD) History of colonoscopy History of hernia surgery History of partial hysterectomy History of appendectomy Family History Mother Lung cancer Sister Lung cancer Alcohol intake: current Alcohol intake frequency: holidays/special occasions only Alcohol type: beer Patient Tobacco Use Status: Former Tobacco user Tobacco use type: Cigarette Years Smoked: 50 Review of Systems Const Denies fatigue, Denies fever(s), Denies night sweats, Denies poor appetite and Denies weight loss Eyes Reports requires corrective lenses ENT Reports Normal hearing present, Denies dental pain, Denies dysphagia, Denies hearing loss, Denies mouth pain, Denies odynophagia, Denies throat swelling, Denies tongue swelling and Reports other (Dentition adequate) GI Denies abdominal pain, Denies melena, Denies bloating, Denies hematochezia, Denies constipation, Denies GI cramping, Denies dysphagia, Denies excessive flatus, Denies early satiety, Denies heartburn, Denies diarrhea, Denies nausea, Denies odynophagia, Denies vomiting and Denies hematemesis Skin/Breast Denies pruritus, Denies lesions, Denies rash and Denies jaundice Neuro Reports Normal hearing present and Denies Abnormal speech present Endo Denies fatigue Aller/Immun Denies throat swelling and Denies tongue swelling Physical Exam Vital Signs: Last Vital Signs Pulse 66 12/29/22 10:11 BP 177/84 H 12/29/22 10:11 BMI result Body Mass Index 18.1 Const General: cooperative, no acute distress, well developed and well groomed Nutritional Appearance: well nourished, obese and overweight Orientation/consciousness: oriented to person, oriented to place and oriented to time Limitations: No language barrier, ambulation with cane, ambulation with walker and wheelchair HEENT Head: Yes normocephalic and Yes atraumatic Eyes General: appearance normal, both eyes and all related structures Pupils: Equal, round and reactive pupils present Neck Neck: Yes normal visual inspection and Yes no lymphadenopathy Thyroid: Thyroid normal Resp Effort & Inspection: normal respiratory effort and able to speak in complete sentences Auscultation: clear to auscultation bilaterally Cardio Rate: regular rate Rhythm: regular rhythm Heart sounds: Normal, physiologic split S2 sound present Peripheral pulses: radial pulses present and posterior tibial pulses present GI Inspection: No distended and No Abdominal panniculus present Palpation (GI): Soft to palpation, nontender, no guarding, not rigid, No hepatosplenomegaly present and Hepatosplenomegaly present Percussion: Yes normal to percussion Auscultation: normal bowel sounds Rectal Exam - Female: deferred Skin General skin exam: no rashes or lesions noted, turgor normal, skin not dry, no jaundice, No spider nevi and no striae Rashes: no rashes Nails: normal Neuro General: oriented to person, oriented to place and oriented to time Cranial nerves: Yes Equal, round and reactive pupils present and Yes Normal hearing present Speech: No Abnormal speech present Extrem General: Yes normal to inspection, No clubbing, No cyanosis and No edema Psych Thought process: Normal thought process present and not confabulating Thought content: Normal thought content present Insight: Good insight present (Psych) Judgement: Good judgement present (Psych) Assessment & Plan Assessment & Plan (1) GERD (gastroesophageal reflux disease): Code(s): K21.9 - Gastro-esophageal reflux disease without esophagitis Plan: She is due in 2023 for repeat colonoscopy due to large polyps removed in 2020. Her GERD continues to be well controlled on her pantoprazole 40mg bid, she says she stopped taking her pills for a while, but then she had an episode of severe HB. She has not opted for surgery for her severe rectal prolapse as suggested in the past by her PCP. She has COPD and chronic kidney disease stage 4 with no known cardiac problems. There are no prior problems with anesthesia or sedation. No ID problems. She has >1cm x 2 polyps on her last scope in 2020. (2) Erosive esophagitis: Code(s): K22.10 - Ulcer of esophagus without bleeding (3) Tubular adenoma of colon: Comment: scope repeat in 3 years due to more than 3 polyps Code(s): D12.6 - Benign neoplasm of colon, unspecified (4) Rectal prolapse: Code(s): K62.3 - Rectal prolapse (5) Internal and external prolapsed hemorrhoids: Code(s): K64.8 - Other hemorrhoids (6) Pre-op examination: Code(s): Z01.818 - Encounter for other preprocedural examination Plan She is due in 2023 for repeat colonoscopy due to large polyps removed in 2020. Her GERD continues to be well controlled on her pantoprazole 40mg bid, she says she stopped taking her pills for a while, but then she had an episode of severe HB. She has not opted for surgery for her severe rectal prolapse as suggested in the past by her PCP. She has COPD and chronic kidney disease stage 4 with no known cardiac problems. There are no prior problems with anesthesia or sedation. No ID problems. She has >1cm x 2 polyps on her last scope in 2020. Medications: New peg 3350-electrolytes 236-22.74-6.74 -5.86 gram (Golytely) until fecal effluent is clear; do not exceed a total volume of 2,000 mL 240 mL PO Q10M 1 day 4,000 mL 0RF Z12.11 - Encounter for screening for malignant neoplasm of colon Refilled pantoprazole 40 mg PO BID 180 tabs 3RF psyllium seed (sugar) (Metamucil (sugar) oral powder) 1 tbsp PO BID 1,254 grams 6RF Coding Level of Care Code Est Pt Level 4 (67305) Diagnoses GERD (gastroesophageal reflux disease) K21.9 Erosive esophagitis K22.10 Tubular adenoma of colon D12.6 Rectal prolapse K62.3 Internal and external prolapsed hemorrhoids K64.8 Pre-op examination Z01.811
== END 2022-12-29 10:49 | disposition home or self-care (01) ==
PROVIDERS: PCP Family Medicine; Visit Provider Nurse Practitioner
DX: K21.9 Gastro-esophageal reflux disease without esophagitis (principal); K22.10 Ulcer of esophagus without bleeding; D12.6 Benign neoplasm of colon, unspecified; K62.3 Rectal prolapse; K64.8 Other hemorrhoids; Z01.818 Encounter for other preprocedural examination
CPT/HCPCS: 99214

== ENCOUNTER → 2022-12-29 10:03 | Outpatient (BNVA) | payer MEDICARE, OTHER, SELFPAY | PROVIDERS: Visit Provider Nurse Practitioner | DX: Z01.818 Encounter for other preprocedural examination (principal); K22.10 Ulcer of esophagus without bleeding; K21.9 Gastro-esophageal reflux disease without esophagitis; D12.6 Benign neoplasm of colon, unspecified; K62.3 Rectal prolapse; K64.8 Other hemorrhoids | CPT/HCPCS: 99212 ==

== ENCOUNTER 2023-01-25 10:24 | Outpatient (AMB) | payer MEDICARE, OTHER, SELFPAY ==
--- NOTE | 2023-01-25 10:28 | A.OFFVIS_ITS ---
Intake Intake Visit Reasons: 6w/PVR Intake Note: Patient is present for follow up OAB/PVR Urology Medications: Tolterodine Blood Thinner: none PVR: 0ml's Leadership Development Consultant Required: No Accompanied by: Self / Same As Patient Allergies citalopram [Celexa] Adverse Reaction (Unknown, Verified 01/25/23 11:19) sleepiness paroxetine [Paxil] Adverse Reaction (Unknown, Verified 01/25/23 11:19) sleepiness Medication List - Last Reconciled 01/25/23 by FRANKY Aguilar albuterol sulfate 90 mcg/actuation 2 puffs inhalation Q6H PRN bupropion HCl 1 tab PO QAM cholecalciferol (vitamin D3) 125 mcg PO DAILY glucosamine HCl 500 mg PO DAILY multivitamin 1 tab PO DAILY pantoprazole 40 mg PO BID peg 3350-electrolytes 236-22.74-6.74 -5.86 gram (Golytely) 240 mL PO Q10M 1 day psyllium seed (sugar) (Metamucil (sugar) oral powder) 1 tbsp PO BID simvastatin 1 tab PO DAILY tolterodine ER (Detrol LA) 4 mg PO DAILY 90 days valsartan (Diovan) 320 mg PO DAILY vitamin E 200 units PO DAILY vitamin E acetate units PO HPI HPI Comments History of Present Illness Details Imelda is a pleasant 82-year-old female patient of . She has a past medical history of chronic kidney disease stage 3, COPD, hypertension, benign positional vertigo, PVCs, fatty liver, GERD, depression, rectal prolapse, and hemorrhoids. She presents to the office today for follow-up of her urinary incontinence and overactive bladder. Of note, patient was seen approximately 6 weeks ago at which time she was started on tolterodine 4 mg daily for her lower urinary tract symptoms of urinary urgency, urinary frequency, and episodes of incontinence if not near a bathroom. In discussion with the patient today she reports feeling urinary symptoms have significantly improved and she has had last urinary incontinence as she is able to make it to the bathroom. She otherwise denies any bothersome urinary issues or concerns. She discusses her family who is coming in for the holidays today. In office urinalysis results reviewed with the patient today. PVR 0 mL. When asked she denies hematuria, dysuria, foul-smelling urine, flank pain, fever, and or chills. Patient does endorse to drinking large amounts of coffee daily. Discussed at length bladder triggers/irritants. [facility] Medical History Urinary incontinence CKD (chronic kidney disease), stage III COPD (chronic obstructive pulmonary disease) HTN (hypertension) BPV (benign positional vertigo) PVC (premature ventricular contraction) Apical lung nodule Fatty liver GERD (gastroesophageal reflux disease) Depression Rectal prolapse Internal and external prolapsed hemorrhoids Surgical History History of esophagogastroduodenoscopy (EGD) History of colonoscopy History of hernia surgery History of partial hysterectomy History of appendectomy Family History Mother Lung cancer Sister Lung cancer Social History Alcohol intake: current Alcohol intake frequency: holidays/special occasions only Alcohol type: beer Patient Tobacco Use Status: Former Tobacco user Tobacco use type: Cigarette Years Smoked: 50 Review of Systems Const Reports as per HPI Eyes Reports no additional complaints Card Reports as per HPI Resp Reports as per HPI GI Reports as per HPI Reports as per [facility] Musc Reports no additional complaints Neuro Reports as per [facility] Psych Reports as per [facility] Physical Exam Const General: cooperative, comfortable, no acute distress, well developed, alert and awake Orientation/consciousness: patient oriented x3 HEENT Head: Yes normal to inspection, Yes normocephalic and Yes atraumatic Ears: hearing grossly normal bilaterally Eyes General: appearance normal, both eyes and all related structures Neck Neck: Yes normal visual inspection and Yes trachea midline Chest Chest palpation & inspection: normal inspection of the chest Resp Effort & Inspection: normal respiratory effort and able to speak in complete sentences Cardio Rate: regular rate GI Inspection: Yes normal to inspection General: Yes no CVA tenderness Back/Spine/Pelvis Back: no CVA tenderness Skin General skin exam: no rashes or lesions noted Neuro General: patient oriented x3 Extrem General: Yes normal to inspection Psych Appearance: grossly normal and well kempt Mental Status: mental status grossly normal Speech and movement: Normal speech and movement present and Clear speech present Affect: normal affect Attitude: cooperative Thought process: Normal thought process present Thought content: Normal thought content present Insight: Fair insight present (Psych) Judgement: Fair judgement present (Psych) Office Procedures Post Void Residual Post Residual Void Post Void Residual (PVR): 0 00746-[id number] Void Residual by ultrasound Results AMB Urinalysis, Automated UA Leukoctes 0 Adelaida/uL Last Edit by Koki Tapia on 01/25/23 10:50 UA Nitrite Negative Last Edit by Koki Tapia on 01/25/23 10:50 UA Urobilinogen 0.2 mg/dL Last Edit by [employer] on 01/25/23 10:50 UA Protein 0 mg/dL Last Edit by [employer] on 01/25/23 10:50 UA pH 6.0 Last Edit by [employer] on 01/25/23 10:50 UA Blood 0 Javier/uL Last Edit by [employer] on 01/25/23 10:50 UA Specific [place] 1.010 Last Edit by [employer] on 01/25/23 10:50 UA Ketone Negative Last Edit by [employer] on 01/25/23 10:50 UA Bilirubin 0 mg/dL Last Edit by [employer] on 01/25/23 10:50 UA Glucose 0 mg/dL Last Edit by [employer] on 01/25/23 10:50 Results Reviewed Results Reviewed: Laboratory Last Values Urine pH (Auto) 6.0 01/25/23 10:30 Specific [place] (Auto) 1.010 01/25/23 10:30 Urine Protein (Auto) 0 mg/dL 01/25/23 10:30 Glucose (UA)(Auto) 0 mg/dL 01/25/23 10:30 Urine Ketones (Auto) Negative 01/25/23 10:30 Urine Blood (Auto) 0 Javier/uL 01/25/23 10:30 Urine Nitrite (Auto) Negative 01/25/23 10:30 Urine Bilirubin (Auto) 0 mg/dL 01/25/23 10:30 Urine Urobilinogen (Auto) 0.2 mg/dL 01/25/23 10:30 Leukocyte Esterase (Auto) 0 Adelaida/uL 01/25/23 10:30 Assessment & Plan Assessment & Plan (1) Overactive bladder: Code(s): N32.81 - Overactive bladder (2) Urinary incontinence: Code(s): R32 - Unspecified urinary incontinence Plan In office urinalysis results reviewed with the patient today; as noted above. PVR 0 mL. Patient reports be happy with current voiding parameters on 4 mg of tolterodine daily; will continue; refill provided. Patient otherwise denies any bothersome urinary issues or concerns at this time. Discussed bladder triggers/irritants. Follow-up in 3 months with PVR; or sooner with any issues, concerns, and or questions. Orders: Orders AMB Urinalysis Automated Today Z13.9 - Encounter for screening, unspecified AMB Post Void Residual by ultrasound Today N32.81 - Overactive bladder Medications: Refilled tolterodine ER (Detrol LA) 4 mg PO DAILY 90 days 90 caps 3RF N32.81 - Overactive bladder Patient Instructions: The patient had an opportunity to ask questions regarding the treatment plan. All questions were answered. Physical exam, labs, and imaging were discussed and reviewed in detail. As well as risks, benefits, and discussion of treatment choices. No major barriers to understanding were identified. The patient expressed understanding and agreement with the above treatment plan. The patient was made aware they should contact our office by phone for worsening of their current condition, the appearance of new symptoms, or with any questions or concerns. Compliance is encouraged with any medications and follow up testing that is ordered. It is a privilege to be allowed the opportunity to participate in? your urological care.? Again, if you have any questions or concerns If you have any questions or concerns please do not hesitate to contact me. The office is [phone]. This note is constructed using voice recognition software. While every effort has been made to ensure accuracy brake reliner errors may have been included. Yours sincerely, FRANKY Aguilar Coding Level of Care Code Est Pt Level 3 (17736) Diagnoses Overactive bladder N32.81 Urinary incontinence R32 CPT Codes Post Residual Void - PVR CPT Code: 01850-Rxfr Void Residual by ultrasound ([id number])
== END 2023-01-25 11:10 | disposition home or self-care (01) ==
PROVIDERS: PCP Family Medicine; Visit Provider Nurse Practitioner Family
DX: N32.81 Overactive bladder (principal); R32 Unspecified urinary incontinence; Z13.9 Encounter for screening, unspecified
CPT/HCPCS: 99213

== ENCOUNTER → 2023-01-25 10:24 | Outpatient (BNVA) | payer MEDICARE, OTHER, SELFPAY | PROVIDERS: PCP Family Medicine; Visit Provider Nurse Practitioner Family | DX: N32.81 Overactive bladder (principal); R32 Unspecified urinary incontinence | CPT/HCPCS: 36415; 51798; 80051; 81003; 82565; 84520; 85025; 99212 ==

== ENCOUNTER 2023-01-25 11:58 | Outpatient (REF) | payer MEDICARE, OTHER, SELFPAY ==
[2023-01-25 13:24] LABS: MANUAL DIFF FLAG NO
[2023-01-25 13:30] LABS: Basophils Absolute Auto 0.1 X10*3/uL (0.0-0.2); Basophils Percent Auto 0.7 % (0-2); Hematocrit 34.6 % (37.0-47.0); Hemoglobin 11.3 g/dl (12.0-16.0); Imm Gran Abs Auto 0.02 X10*3/uL (0.00-0.03); Imm Gran Pct Auto 0.3 % (0.0-0.4); Lymphocytes Absolute Auto 1.5 X10*3/uL (1.2-4.9); Lymphocytes Percent Auto 20.5 % (20-40); Mean Corpuscular HGB Conc 32.7 g/dl (31.0-35.0); Mean Corpuscular Hemoglobin 29.4 pg (27.0-33.0); Mean Corpuscular Volume 89.9 fL (80.0-98.0); Mean Platelet Volume 8.8 fL (9.4-12.3); Monocytes Absolute Auto 0.6 X10*3/uL (0.1-1.2); Neutrophils Percent Auto 69.5 % (45-73); Platelet Count 274 X10*3/uL (160-400); Red Blood Count 3.85 X10*6/uL (4.20-5.50); Red Cell Distribution Width 13.2 % (11.0-16.0); White Blood Count 7.1 X10*3/uL (4.8-10.8)
[2023-01-25 13:45] LABS: Anion Gap 13 (12-20); Blood Urea Nitrogen 16 mg/dL (9-16); Carbon Dioxide 24 mmol/L (22-29); Chloride 107 mmol/L (96-108); Estimated Glomerular Filt Rate 43; Potassium 4.3 mmol/L (3.3-5.1); Sodium 140 mmol/L (135-145)
== END 2023-01-25 11:59 | disposition home or self-care (01) ==
LOC: HO.10HDL 11:58
PROVIDERS: Visit Provider Family Medicine
DX: Z13.89 Encounter for screening for other disorder (principal)
CPT/HCPCS: 36415; 80051; 82565; 84520; 85025

== ENCOUNTER 2023-04-27 10:11 | Outpatient (AMB) | payer MEDICARE, OTHER, SELFPAY ==
--- NOTE | 2023-04-27 10:14 | MHC.OFFVIS ---
Intake Intake Visit Reasons: 3m/PVR Intake Note: Patient presents today for a follow-up on PVR Meds- Tolterodine Allergies to Antibiotic- No Known Allergies Blood Thinner- None Post Void Residual: 0ml Patient Symptoms: Patient stated her medication Tolterodine works well for her, she is able to urinates, and she added that sometimes she does not make it, she leaks some urine. 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: No Accompanied by: Self / Same As Patient Allergies citalopram [Celexa] Adverse Reaction (Unknown, Verified 04/27/23 10:52) sleepiness paroxetine [Paxil] Adverse Reaction (Unknown, Verified 04/27/23 10:52) sleepiness Medication List - Last Reconciled 04/27/23 by CHARLIE Aguilar-REYMUNDO albuterol sulfate 90 mcg/actuation 2 puffs inhalation Q6H PRN bupropion HCl 1 tab PO QAM cholecalciferol (vitamin D3) 125 mcg PO DAILY glucosamine HCl 500 mg PO DAILY multivitamin 1 tab PO DAILY pantoprazole 40 mg PO BID peg 3350-electrolytes 236-22.74-6.74 -5.86 gram (Golytely) 240 mL PO Q10M 1 day psyllium seed (sugar) (Metamucil (sugar) oral powder) 1 tbsp PO BID simvastatin 1 tab PO DAILY tolterodine ER (Detrol LA) 4 mg PO DAILY 90 days valsartan (Diovan) 320 mg PO DAILY vitamin E 200 units PO DAILY vitamin E acetate units PO HPI HPI Comments History of Present Illness Details Imelda is a pleasant 82-year-old female patient of . She has a past medical history of chronic kidney disease stage 3, COPD, hypertension, benign positional vertigo, PVCs, fatty liver, GERD, depression, rectal prolapse, and hemorrhoids. She presents to the office today for follow-up of her urinary incontinence and overactive bladder. In discussion with the patient today she reports to be doing and feeling well. She reports significant improvement in lower urinary tract symptoms on 4 mg of tolterodine daily. She does discuss feeling she continues with urinary frequency however does not find this bothersome and feels she is able to make it to the bathroom and has had no incontinent episodes since her last office visit here approximately 3 months ago. She discusses her main concern is her bowels and follows up with GI as well as her PCP. In office urinalysis results reviewed with the patient today. PVR 0 mL. She otherwise denies hematuria, dysuria, foul-smelling urine, flank pain, fever, and or chills. Patient does endorse to drinking large amounts of coffee daily. Discussed at length bladder triggers/irritants. She otherwise offers no other issues or concerns at this time [facility] Medical History Urinary incontinence CKD (chronic kidney disease), stage III COPD (chronic obstructive pulmonary disease) HTN (hypertension) BPV (benign positional vertigo) PVC (premature ventricular contraction) Apical lung nodule Fatty liver GERD (gastroesophageal reflux disease) Depression Rectal prolapse Internal and external prolapsed hemorrhoids Surgical History History of esophagogastroduodenoscopy (EGD) History of colonoscopy History of hernia surgery History of partial hysterectomy History of appendectomy Family History Mother Lung cancer Sister Lung cancer Social History Alcohol intake: current Alcohol intake frequency: holidays/special occasions only Alcohol type: beer Patient Tobacco Use Status: Former Tobacco user Tobacco use type: Cigarette Years Smoked: 50 Review of Systems Const Reports as per HPI Eyes Reports no additional complaints Card Reports as per HPI Resp Reports as per HPI GI Reports as per HPI Reports as per HPI Musc Reports no additional complaints Neuro Reports as per [facility] Psych Reports as per [facility] Physical Exam Const General: cooperative, comfortable, no acute distress, well developed, alert and awake Orientation/consciousness: patient oriented x3 HEENT Head: Yes normal to inspection, Yes normocephalic and Yes atraumatic Ears: hearing grossly normal bilaterally Eyes General: appearance normal, both eyes and all related structures Neck Neck: Yes normal visual inspection and Yes trachea midline Chest Chest palpation & inspection: normal inspection of the chest Resp Effort & Inspection: normal respiratory effort and able to speak in complete sentences Cardio Rate: regular rate GI Inspection: Yes normal to inspection General: Yes no CVA tenderness Back/Spine/Pelvis Back: no CVA tenderness Skin General skin exam: no rashes or lesions noted Neuro General: patient oriented x3 Extrem General: Yes normal to inspection Psych Appearance: grossly normal and well kempt Mental Status: mental status grossly normal Speech and movement: Normal speech and movement present and Clear speech present Affect: normal affect Attitude: cooperative Thought process: Normal thought process present Thought content: Normal thought content present Insight: Fair insight present (Psych) Judgement: Fair judgement present (Psych) Office Procedures Post Void Residual Post Residual Void Post Void Residual (PVR): 0 34167-Whst Void Residual by ultrasound Results AMB Urinalysis, Automated UA Leukoctes 0 Adelaida/uL Last Edit by Leticia Henao [facility] on 04/27/23 10:33 UA Nitrite Negative Last Edit by [facility] on 04/27/23 10:33 UA Urobilinogen 0.2 mg/dL Last Edit by Leticia Henaothomas Henao [facility] on 04/27/23 10:33 UA Protein 0 mg/dL Last Edit by Leticia Henaothomas Henao [facility] on 04/27/23 10:33 UA pH 6.0 Last Edit by [facility] on 04/27/23 10:33 UA Blood 0 Javier/uL Last Edit by Leticia Henaothomas Coucha [facility] on 04/27/23 10:33 UA Specific [place] 1.015 Last Edit by Leticia Henaothomas Henao [facility] on 04/27/23 10:33 UA Ketone Negative Last Edit by Leticia Henaothomas Henao [facility] on 04/27/23 10:33 UA Bilirubin 0 mg/dL Last Edit [facility] on 04/27/23 10:33 UA Glucose 0 mg/dL Last Edit [facility], [facility] on 04/27/23 10:33 Results Reviewed Results Reviewed: Laboratory Last Values Urine pH (Auto) 6.0 04/27/23 10:31 Specific [place] (Auto) 1.015 04/27/23 10:31 Urine Protein (Auto) 0 mg/dL 04/27/23 10:31 Glucose (UA)(Auto) 0 mg/dL 04/27/23 10:31 Urine Ketones (Auto) Negative 04/27/23 10:31 Urine Blood (Auto) 0 Javier/uL 04/27/23 10:31 Urine Nitrite (Auto) Negative 04/27/23 10:31 Urine Bilirubin (Auto) 0 mg/dL 04/27/23 10:31 Urine Urobilinogen (Auto) 0.2 mg/dL 04/27/23 10:31 Leukocyte Esterase (Auto) 0 Adelaida/uL 04/27/23 10:31 Assessment & Plan Assessment & Plan (1) Overactive bladder: Code(s): N32.81 - Overactive bladder (2) Urinary incontinence: Code(s): R32 - Unspecified urinary incontinence Plan In office urinalysis results reviewed with the patient today; as noted above. PVR 0 mL. Discussed bladder triggers/irritants. Patient reports be happy with current voiding parameters on 4 mg of tolterodine daily Continue 4 mg of tolterodine as discussed and prescribed; refill provided. Patient denies any bothersome urinary issues or concerns at this time. Follow-up in 6 months with PVR; or sooner with any issues, concerns, and or questions. Orders: Orders AMB Urinalysis Automated Today R33.9 - Retention of urine, unspecified AMB Post Void Residual by ultrasound Today R33.9 - Retention of urine, unspecified Medications: Refilled tolterodine ER (Detrol LA) 4 mg PO DAILY 90 caps 3RF 90 days N32.81 - Overactive bladder Patient Instructions: The patient had an opportunity to ask questions regarding the treatment plan. All questions were answered. Physical exam, labs, and imaging were discussed and reviewed in detail. As well as risks, benefits, and discussion of treatment choices. No major barriers to understanding were identified. The patient expressed understanding and agreement with the above treatment plan. The patient was made aware they should contact our office by phone for worsening of their current condition, the appearance of new symptoms, or with any questions or concerns. Compliance is encouraged with any medications and follow up testing that is ordered. It is a privilege to be allowed the opportunity to participate in? your urological care.? Again, if you have any questions or concerns If you have any questions or concerns please do not hesitate to contact me. The office is [phone]. This note is constructed using voice recognition software. While every effort has been made to ensure accuracy rug dyer errors may have been included. Yours sincerely, FRANKY Aguilar Coding Level of Care Code Est Pt Level 3 (14009) Diagnoses Overactive bladder N32.81 Urinary incontinence R32 CPT Codes Post Residual Void - PVR CPT Code: 94785-Afck Void Residual by ultrasound ([id number])
== END 2023-04-27 10:58 | disposition home or self-care (01) ==
LOC: HO.HUSH 10:12
PROVIDERS: PCP Family Medicine; Visit Provider Nurse Practitioner Family
DX: N32.81 Overactive bladder (principal); R32 Unspecified urinary incontinence; R33.9 Retention of urine, unspecified
CPT/HCPCS: 99213

== ENCOUNTER → 2023-04-27 10:11 | Outpatient (BNVA) | payer MEDICARE, OTHER, SELFPAY | PROVIDERS: PCP Family Medicine; Visit Provider Nurse Practitioner Family | DX: N32.81 Overactive bladder (principal); R32 Unspecified urinary incontinence | CPT/HCPCS: 51798; 81003; 99212 ==

== ENCOUNTER 2023-06-29 10:09 | Outpatient (AMB) | payer MEDICARE, OTHER, SELFPAY ==
[2023-06-29 10:14] VITALS: BP 160/74; PULSE 76; BMI 18.6
--- NOTE | 2023-06-29 10:14 | MHC.OFFVIS ---
Vital Signs 06/29/23 10:14 Height 5 ft 5 in Weight 111 lb 15.917 oz BMI 18.6 BP 160/74 H Blood Pressure Location Lt brachial Position Sitting Pulse 76 Intake Visit Reasons: 6 month follow up Intake Note: Patient presents to in office visit today in 6 months follow up. CC: Patient inquiring about colonoscopy. She states that she is doing about the same. She reports struggling to have a BM, seeing brown mucous , and having to go to the BR several times a day. 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 Her GERD continues to be well controlled on her pantoprazole 40mg bid, she says she stopped taking her pills for a while, but then she had an episode of severe HB. She has not opted for surgery for her severe rectal prolapse as suggested in the past by her PCP. She has COPD and chronic kidney disease stage 4 with no known cardiac problems. There are no prior problems with anesthesia or sedation. No ID problems. She has >1cm x 2 polyps on her last scope in 2020. (2) Erosive esophagitis: Code(s): K22.10 - Ulcer of esophagus without bleeding (3) Tubular adenoma of colon: Comment: scope repeat in 3 years due to more than 3 polyps Code(s): D12.6 - Benign neoplasm of colon, unspecified (4) Rectal prolapse: Code(s): K62.3 - Rectal prolapse (5) Internal and external prolapsed hemorrhoids: Code(s): K64.8 - Other hemorrhoids (6) Pre-op examination: Code(s): Z01.818 - Encounter for other preprocedural examination Plan She is due in 2023 for repeat colonoscopy due to large polyps removed in 2020. Her GERD continues to be well controlled on her pantoprazole 40mg bid, she says she stopped taking her pills for a while, but then she had an episode of severe HB. She has not opted for surgery for her severe rectal prolapse as suggested in the past by her PCP. She has COPD and chronic kidney disease stage 4 with no known cardiac problems. There are no prior problems with anesthesia or sedation. No ID problems. She has >1cm x 2 polyps on her last scope in 2020. Medications: New peg 3350-electrolytes 236-22.74-6.74 -5.86 gram (Golytely) until fecal effluent is clear; do not exceed a total volume of 2,000 mL 240 mL PO Q10M 1 day 4,000 mL 0RF Z12.11 - Encounter for screening for malignant neoplasm of colon Refilled pantoprazole 40 mg PO BID 180 tabs 3RF psyllium seed (sugar) (Metamucil (sugar) oral powder) 1 tbsp PO BID 1,254 grams 6RF COLONOSCOPY Never scheduled, re input task/tracking BIOPSY TODAY'S VISIT She continues to do well on her pantoprazole except when she forgets to take it! She never took pills and dislikes them, but realized she really needs them. She never heard to have the colonoscopy scheduled - I will re input the task as this seems to have fallen in the cracks. She is quite agreeable to having it and has the PEG prep at home. She continues to struggle at times with her stooling, but really does not want surgery for her rectocele. ROV 6 mos. [facility] Medical History (Updated 06/29/23 @ 11:19 by CHIKA Aguirre) Weight loss Abnormal CT scan Urinary incontinence CKD (chronic kidney disease), stage III COPD (chronic obstructive pulmonary disease) HTN (hypertension) BPV (benign positional vertigo) PVC (premature ventricular contraction) Apical lung nodule Fatty liver GERD (gastroesophageal reflux disease) Depression Rectal prolapse Internal and external prolapsed hemorrhoids Surgical History History of esophagogastroduodenoscopy (EGD) History of colonoscopy History of hernia surgery History of partial hysterectomy History of appendectomy Family History Mother Lung cancer Sister Lung cancer Social History Alcohol intake: current Alcohol intake frequency: holidays/special occasions only Alcohol type: beer Patient Tobacco Use Status: Former Tobacco user Tobacco use type: Cigarette Years Smoked: 50 Review of Systems Const Denies fatigue, Denies fever(s), Denies night sweats, Denies poor appetite and Denies weight loss ENT Reports Normal hearing present, Denies dental pain, Denies dysphagia, Denies hearing loss, Denies mouth pain, Denies odynophagia, Denies throat swelling, Denies tongue swelling and Reports other (Dentition adequate) Card Reports no additional complaints Resp Reports no additional complaints GI Details: Denies abdominal pain, Denies melena, Denies bloating, Denies hematochezia, Denies constipation, Denies GI cramping, Denies dysphagia, Denies excessive flatus, Denies early satiety, Reports heartburn, Denies diarrhea, Denies nausea, Denies odynophagia, Denies vomiting and Denies hematemesis Skin/Breast Denies pruritus, Denies lesions, Denies rash and Denies jaundice Neuro Reports Normal hearing present and Denies Abnormal speech present Endo Denies fatigue Aller/Immun Denies throat swelling and Denies tongue swelling Physical Exam Vital Signs: Last Vital Signs Pulse 76 06/29/23 10:14 BP 160/74 H 06/29/23 10:14 BMI result Body Mass Index 18.6 Const General: cooperative, no acute distress, well developed and well groomed Nutritional Appearance: average body habitus and well nourished Orientation/consciousness: oriented to person, oriented to place and oriented to time Limitations: No language barrier HEENT Head: Yes normocephalic and Yes atraumatic Eyes General: appearance normal, both eyes and all related structures Pupils: Equal, round and reactive pupils present Neck Neck: Yes normal visual inspection and Yes no lymphadenopathy Thyroid: Thyroid normal Resp Effort & Inspection: normal respiratory effort and able to speak in complete sentences Auscultation: clear to auscultation bilaterally Cardio Rate: regular rate Rhythm: regular rhythm Heart sounds: Normal, physiologic split S2 sound present Peripheral pulses: radial pulses present and posterior tibial pulses present GI Inspection: No distended and No Abdominal panniculus present Palpation (GI): Soft to palpation, nontender, no guarding, not rigid and No hepatosplenomegaly present Percussion: Yes normal to percussion Auscultation: normal bowel sounds Rectal Exam - Female: deferred Skin General skin exam: no rashes or lesions noted, turgor normal, skin not dry, no jaundice, No spider nevi and no striae Rashes: no rashes Nails: normal Neuro General: oriented to person, oriented to place and oriented to time Cranial nerves: Yes Equal, round and reactive pupils present and Yes Normal hearing present Speech: No Abnormal speech present Extrem General: Yes normal to inspection, No clubbing, No cyanosis and No edema Psych Appearance: grossly normal and well kempt Mental Status: mental status grossly normal Speech and movement: Normal speech and movement present Affect: normal affect Attitude: cooperative Thought process: Normal thought process present and not confabulating Thought content: Normal thought content present Insight: Limited insight present (Psych) Judgement: Limited judgement present (Psych) Assessment & Plan Assessment & Plan (1) Tubular adenoma of colon: Comment: scope repeat in 3 years due to more than 3 polyps Code(s): D12.6 - Benign neoplasm of colon, unspecified Category: Medical (2) GERD (gastroesophageal reflux disease): Code(s): K21.9 - Gastro-esophageal reflux disease without esophagitis Category: Medical (3) Rectal prolapse: Code(s): K62.3 - Rectal prolapse Category: Medical Plan She continues to do well on her pantoprazole except when she forgets to take it! She never took pills and dislikes them, but realized she really needs them. She never heard to have the colonoscopy scheduled - I will re input the task as this seems to have fallen in the cracks. She is quite agreeable to having it and has the PEG prep at home. She continues to struggle at times with her stooling, but really does not want surgery for her rectocele. ROV 6 mos. COLONOSCOPY Never scheduled, re input task/tracking BIOPSY Orders: Orders Colonoscopy - GI Use Only Today D12.6 - Benign neoplasm of colon, unspecified Medications: Refilled pantoprazole 40 mg PO BID 180 tabs 3RF psyllium seed (sugar) (Metamucil (sugar) oral powder) 1 tbsp PO BID 1,254 grams 6RF Coding Level of Care Code Est Pt Level 3 (09422) Diagnoses Tubular adenoma of colon D12.6 GERD (gastroesophageal reflux disease) K21.9 Rectal prolapse K62.3
== END 2023-06-29 10:49 | disposition home or self-care (01) ==
PROVIDERS: PCP Family Medicine; Visit Provider Nurse Practitioner
DX: D12.6 Benign neoplasm of colon, unspecified (principal); K21.9 Gastro-esophageal reflux disease without esophagitis; K62.3 Rectal prolapse
CPT/HCPCS: 99213

== ENCOUNTER → 2023-06-29 10:09 | Outpatient (BNVA) | payer MEDICARE, OTHER, SELFPAY | PROVIDERS: PCP Family Medicine; Visit Provider Nurse Practitioner | DX: K21.9 Gastro-esophageal reflux disease without esophagitis (principal); K62.3 Rectal prolapse; D12.6 Benign neoplasm of colon, unspecified | CPT/HCPCS: 99212 ==

== ENCOUNTER 2023-07-06 09:39 | Outpatient (REF) | payer MEDICARE, OTHER, SELFPAY ==
[2023-07-06 11:32] LABS: Alanine Aminotransferase 8 U/L (0-31); Anion Gap 12 (12-20); Aspartate Amino Transferase 19 U/L (5-31); Blood Urea Nitrogen 21 mg/dL (9-16); Calcium 10.1 mg/dL (8.4-10.2); Carbon Dioxide 25 mmol/L (22-29); Chloride 109 mmol/L (96-108); Estimated Glomerular Filt Rate 34; Potassium 4.2 mmol/L (3.3-5.1); Sodium 142 mmol/L (135-145)
== END 2023-07-06 09:40 | disposition home or self-care (01) ==
LOC: HO.MAMMO 09:39
PROVIDERS: PCP Family Medicine; Visit Provider Family Medicine
DX: I10 Essential (primary) hypertension (principal); E83.52 Hypercalcemia; K75.81 Nonalcoholic steatohepatitis (NASH); Z12.31 Encounter for screening mammogram for malignant neoplasm of breast
CPT/HCPCS: 36415; 77063; 77067; 80051; 82310; 82565; 84450; 84460; 84520

== ENCOUNTER → 2023-07-06 10:45 | Outpatient (BNV) | payer MEDICARE, OTHER, SELFPAY | PROVIDERS: PCP Family Medicine; Visit Provider Radiology Diagnostic Radiology | DX: Z12.31 Encounter for screening mammogram for malignant neoplasm of breast (principal) | CPT/HCPCS: 77063; 77067 ==

== ENCOUNTER 2023-10-26 10:34 | Outpatient (AMB) | payer MEDICARE, OTHER, SELFPAY ==
--- NOTE | 2023-10-26 10:35 | A.OFFVIS_ITS ---
Intake Visit Reasons: 6m/PVR Intake Note: Patient presents today for a follow-up on: OAB and incontinence Meds- Tolterodine Allergies to Antibiotic- No Known Allergies Blood Thinner- None Post Void Residual: 15ml's Spotter Required: No Accompanied by: Self / Same As Patient Allergies citalopram [Celexa] Adverse Reaction (Unknown, Verified 10/26/23 11:08) sleepiness paroxetine [Paxil] Adverse Reaction (Unknown, Verified 10/26/23 11:08) sleepiness Medication List - Last Reconciled 10/26/23 by CHARLIE Aguilar- albuterol sulfate 90 mcg/actuation 2 puffs inhalation Q6H PRN bupropion HCl XL 1 tab PO QAM cholecalciferol (vitamin D3) 125 mcg PO DAILY glucosamine HCl 500 mg PO DAILY multivitamin 1 tab PO DAILY pantoprazole 40 mg PO BID psyllium seed (sugar) (Metamucil (sugar) oral powder) 1 tbsp PO BID simvastatin 1 tab PO DAILY solifenacin (Vesicare) 10 mg PO DAILY 90 days valsartan (Diovan) 320 mg PO DAILY vitamin E 200 units PO DAILY HPI Comments Details: Imelda is a pleasant 83-year-old female patient of . She has a past medical history of chronic kidney disease stage 3, COPD, hypertension, benign positional vertigo, PVCs, fatty liver, GERD, depression, rectal prolapse, and hemorrhoids. She presents to the office today for follow-up of her urinary incontinence and overactive bladder. In discussion with the patient today she reports to be doing and feeling well. She reports feeling tolterodine has not been affective in her symptoms of overactive bladder. She reports continuing to experience urinary urgency and frequency. She does report to be drinking plenty of coffee daily however does not wish to decrease her consumption at this time. In office urinalysis results reviewed with the patient today. PVR 15 mL. She otherwise denies hematuria, dysuria, foul-smelling urine, flank pain, fever, and or chills. Patient does endorse to drinking large amounts of coffee daily. Discussed at length bladder triggers/irritants. She otherwise offers no other issues or concerns at this time [facility] Medical History Weight loss Abnormal CT scan Urinary incontinence CKD (chronic kidney disease), stage III COPD (chronic obstructive pulmonary disease) HTN (hypertension) BPV (benign positional vertigo) PVC (premature ventricular contraction) Apical lung nodule Fatty liver GERD (gastroesophageal reflux disease) Depression Rectal prolapse Internal and external prolapsed hemorrhoids Surgical History History of esophagogastroduodenoscopy (EGD) History of colonoscopy History of hernia surgery History of partial hysterectomy History of appendectomy Family History Mother Lung cancer Sister Lung cancer Social History Alcohol intake: current Alcohol intake frequency: holidays/special occasions only Alcohol type: beer Patient Tobacco Use Status: Former Tobacco user Tobacco use type: Cigarette Years Smoked: 50 Review of Systems Const Reports as per [facility] Eyes Reports no additional complaints Card Reports as per [facility] Resp Reports as per [facility] GI Reports as per [facility] Reports as per [facility] Musc Reports no additional complaints Neuro Reports as per [facility] Psych Reports as per HPI Physical Exam Const General: cooperative, comfortable, no acute distress, well developed, alert and awake Orientation/consciousness: patient oriented x3 Limitations: no limitations HEENT Head: Yes normal to inspection, Yes normocephalic and Yes atraumatic Ears: hearing grossly normal bilaterally Eyes General: appearance normal, both eyes and all related structures Neck Neck: Yes normal visual inspection and Yes trachea midline Chest Chest palpation & inspection: normal inspection of the chest Resp Effort & Inspection: normal respiratory effort and able to speak in complete sentences Cardio Rate: regular rate GI Inspection: Yes normal to inspection General: Yes no CVA tenderness Back/Spine/Pelvis Back: no CVA tenderness Skin General skin exam: no rashes or lesions noted Neuro General: patient oriented x3 Extrem General: Yes normal to inspection Psych Appearance: grossly normal and well kempt Mental Status: mental status grossly normal Speech and movement: Normal speech and movement present and Clear speech present Affect: normal affect Attitude: cooperative Thought process: Normal thought process present Thought content: Normal thought content present Insight: Fair insight present (Psych) Judgement: Fair judgement present (Psych) Office Procedures Post Void Residual Post Residual Void Post Void Residual (PVR): 15 [id number] Void Residual by ultrasound Results AMB Urinalysis, Automated UA Leukoctes 0 Adelaida/uL Last Edit by TouchMailmery on 10/26/23 10:58 UA Nitrite Negative Last Edit by TouchMailmery on 10/26/23 10:58 UA Urobilinogen 0.2 mg/dL Last Edit by Cryoport on 10/26/23 10:58 UA Protein 0 mg/dL Last Edit by Cryoport on 10/26/23 10:58 UA pH 6.0 Last Edit by Cryoport on 10/26/23 10:58 UA Blood 0 Javier/uL Last Edit by Cryoport on 10/26/23 10:58 UA Specific Oakley 1.010 Last Edit by Cryoport on 10/26/23 10:58 UA Ketone Negative Last Edit by Cryoport on 10/26/23 10:58 UA Bilirubin 0 mg/dL Last Edit by Cryoport on 10/26/23 10:58 UA Glucose 0 mg/dL Last Edit by Cryoport on 10/26/23 10:58 Results Reviewed Results Reviewed: Laboratory Last Values Urine pH (Auto) 6.0 10/26/23 10:56 Specific Oakley (Auto) 1.010 10/26/23 10:56 Urine Protein (Auto) 0 mg/dL 10/26/23 10:56 Glucose (UA)(Auto) 0 mg/dL 10/26/23 10:56 Urine Ketones (Auto) Negative 10/26/23 10:56 Urine Blood (Auto) 0 Javier/uL 10/26/23 10:56 Urine Nitrite (Auto) Negative 10/26/23 10:56 Urine Bilirubin (Auto) 0 mg/dL 10/26/23 10:56 Urine Urobilinogen (Auto) 0.2 mg/dL 10/26/23 10:56 Leukocyte Esterase (Auto) 0 Adelaida/uL 10/26/23 10:56 Assessment & Plan Assessment & Plan (1) Overactive bladder: Code(s): N32.81 - Overactive bladder Category: Medical (2) Urinary incontinence: Code(s): R32 - Unspecified urinary incontinence Category: Medical Plan In office urinalysis results reviewed with the patient today; as noted above. PVR 15 mL. Discussed bladder triggers/irritants. Stop tolterodine. Start VESIcare 10 mg daily as discussed and prescribed. Discussed importance of timed/scheduled voiding. Follow-up in 1-3 months with PVR; or sooner with any issues, concerns, and or questions. Orders: Orders AMB Urinalysis Automated Today Z13.9 - Encounter for screening, unspecified AMB Post Void Residual by ultrasound Today N32.81 - Overactive bladder Medications: New solifenacin (Vesicare) 10 mg PO DAILY 90 tabs 0RF 90 days Discontinued peg 3350-electrolytes 236-22.74-6.74 -5.86 gram (Golytely) until fecal effluent is clear; do not exceed a total volume of 2,000 mL Discontinued Reason: Patient Completed Course 240 mL PO Q10M 4,000 mL 0RF 1 day Z12.11 - Encounter for screening for malignant neoplasm of colon tolterodine ER (Detrol LA) Discontinued Reason: Doctor's Order 4 mg PO DAILY 90 caps 3RF 90 days N381 - Overactive bladder Patient Instructions: The patient had an opportunity to ask questions regarding the treatment plan. All questions were answered. Physical exam, labs, and imaging were discussed and reviewed in detail. As well as risks, benefits, and discussion of treatment choices. No major barriers to understanding were identified. The patient expressed understanding and agreement with the above treatment plan. The patient was made aware they should contact our office by phone for worsening of their current condition, the appearance of new symptoms, or with any questions or concerns. Compliance is encouraged with any medications and follow up testing that is ordered. It is a privilege to be allowed the opportunity to participate in? your urological care.? Again, if you have any questions or c oncerns If you have any questions or concerns please do not hesitate to contact me. The office is [phone]. This note is constructed using voice recognition software. While every effort has been made to ensure accuracy senior front end engineer errors may have been included. Yours sincerely, GLADYS Aguilar Coding Level of Care Code Est Pt Level 4 (44734) Complex EM visit Add On G2211 Diagnoses Overactive bladder N32.81 Urinary incontinence R32 CPT Codes Post Residual Void - PVR CPT Code: 80660-Esgx Void Residual by ultrasound ([id number])
== END 2023-10-26 11:13 | disposition home or self-care (01) ==
PROVIDERS: PCP Family Medicine; Visit Provider Nurse Practitioner Family
DX: N32.81 Overactive bladder (principal); R32 Unspecified urinary incontinence; Z13.9 Encounter for screening, unspecified
CPT/HCPCS: 99214; G2211

== ENCOUNTER → 2023-10-26 10:34 | Outpatient (BNVA) | payer MEDICARE, OTHER, SELFPAY | PROVIDERS: PCP Family Medicine; Visit Provider Nurse Practitioner Family | DX: N32.81 Overactive bladder (principal); R32 Unspecified urinary incontinence | CPT/HCPCS: 51798; 81003; 99212 ==

== ENCOUNTER 2023-12-15 10:21 | Outpatient (AMB) | payer MEDICARE, OTHER, SELFPAY ==
--- NOTE | 2023-12-15 10:31 | A.OFFVIS_ITS ---
Intake Visit Reasons: 7w/PVR Intake Note: Patient presents today for a follow-up on: OAB and incontinence Meds: solifenacin Allergies to Antibiotic- No Known Allergies Blood Thinner- None Post Void Residual: 0ml's Television Picture Tube Rebuilder Required: No Accompanied by: Self / Same As Patient Allergies citalopram [Celexa] Adverse Reaction (Unknown, Verified 12/15/23 11:01) sleepiness paroxetine [Paxil] Adverse Reaction (Unknown, Verified 12/15/23 11:01) sleepiness HPI Comments Details: Imelda is a pleasant 83-year-old female patient of . She has a past medical history of chronic kidney disease stage 3, COPD, hypertension, benign positional vertigo, PVCs, fatty liver, GERD, depression, rectal prolapse, and hemorrhoids. She presents to the office today for follow-up of her urinary incontinence and overactive bladder. In discussion with the patient today she reports to be doing and feeling well. She reports feeling VESIcare has not been helpful in her overactive bladder symptoms. She continues to report episodes of urinary urgency and frequency. In office urinalysis results reviewed with the patient today. PVR 0 mL. We discussed bladder triggers and irritants last she does endorse to drinking increased amounts of coffee daily. She otherwise denies hematuria, dysuria, foul-smelling urine, flank pain, fever, and or chills. We discussed possible near future in office cystoscopy and or urodynamics if symptoms persist. She has previously trialed tolterodine with no improvement and given patient's age and BEERS criteria we discussed affects of oxybutynin therefore will trial Myrbetriq. She otherwise offers no other issues or concerns at this time. [facility] Medical History Weight loss Abnormal CT scan Urinary incontinence CKD (chronic kidney disease), stage III COPD (chronic obstructive pulmonary disease) HTN (hypertension) BPV (benign positional vertigo) PVC (premature ventricular contraction) Apical lung nodule Fatty liver GERD (gastroesophageal reflux disease) Depression Rectal prolapse Internal and external prolapsed hemorrhoids Surgical History History of esophagogastroduodenoscopy (EGD) History of colonoscopy History of hernia surgery History of partial hysterectomy History of appendectomy Family History Mother Lung cancer Sister Lung cancer Social History Alcohol intake: current Alcohol intake frequency: holidays/special occasions only Alcohol type: beer Patient Tobacco Use Status: Former Tobacco user Tobacco use type: Cigarette Years Smoked: 50 Review of Systems Const Reports as per HPI Eyes Reports no additional complaints Card Reports as per HPI Resp Reports as per HPI GI Reports as per HPI Reports as per HPI Musc Reports no additional complaints Neuro Reports as per HPI Psych Reports as per HPI Physical Exam Const General: cooperative, comfortable, no acute distress, well developed, alert and awake Orientation/consciousness: patient oriented x3 Limitations: no limitations HEENT Head: Yes normal to inspection, Yes normocephalic and Yes atraumatic Ears: hearing grossly normal bilaterally Eyes General: appearance normal, both eyes and all related structures Neck Neck: Yes normal visual inspection and Yes trachea midline Chest Chest palpation & inspection: normal inspection of the chest Resp Effort & Inspection: normal respiratory effort and able to speak in complete sentences Cardio Rate: regular rate GI Inspection: Yes normal to inspection General: Yes no CVA tenderness Back/Spine/Pelvis Back: no CVA tenderness Skin General skin exam: no rashes or lesions noted Neuro General: patient oriented x3 Extrem General: Yes normal to inspection Psych Appearance: grossly normal and well kempt Mental Status: mental status grossly normal Speech and movement: Normal speech and movement present and Clear speech present Affect: normal affect Attitude: cooperative Thought process: Normal thought process present Thought content: Normal thought content present Insight: Fair insight present (Psych) Judgement: Fair judgement present (Psych) Results AMB Urinalysis, Automated UA Leukoctes 0 Adelaida/uL Last Edit by Koki Tapia on 12/15/23 11:03 UA Nitrite Last Edit by Koki Tapia on 12/15/23 11:03 UA Urobilinogen 0.2 mg/dL Last Edit by Koki Delgadomery on 12/15/23 11:03 UA Protein 15 mg/dL Last Edit by Koki Delgadomery on 12/15/23 11:03 UA pH 6.0 Last Edit by Erikemelydamien Delgadomery on 12/15/23 11:03 UA Blood 0 Javier/uL Last Edit by Eriksumit Sandymery on 12/15/23 11:03 UA Specific Rule 1.025 Last Edit by Koki Delgadomery on 12/15/23 11:03 UA Ketone Last Edit by Eriksumit Sandymery on 12/15/23 11:03 UA Bilirubin 0 mg/dL Last Edit by Koki Sandymery on 12/15/23 11:03 UA Glucose 0 mg/dL Last Edit by Koki Sandymery on 12/15/23 11:03 Results Reviewed Results Reviewed: Laboratory Last Values Urine pH (Auto) 6.0 12/15/23 11:01 Specific Rule (Auto) 1.025 12/15/23 11:01 Urine Protein (Auto) 15 mg/dL 12/15/23 11:01 Glucose (UA)(Auto) 0 mg/dL 12/15/23 11:01 Urine Blood (Auto) 0 Javier/uL 12/15/23 11:01 Urine Bilirubin (Auto) 0 mg/dL 12/15/23 11:01 Urine Urobilinogen (Auto) 0.2 mg/dL 12/15/23 11:01 Leukocyte Esterase (Auto) 0 Adelaida/uL 12/15/23 11:01 Assessment & Plan Assessment & Plan (1) Overactive bladder: Code(s): N32.81 - Overactive bladder Category: Medical (2) Urinary incontinence: Code(s): R32 - Unspecified urinary incontinence Category: Medical Plan In office urinalysis results reviewed with the patient today; as noted above. PVR 0 mL. Discussed bladder triggers/irritants. Stop VESIcare. Start Myrbetriq 25 mg daily as discussed and prescribed. Discussed importance of timed/scheduled voiding. Follow-up in 1-3 months with PVR; or sooner with any issues, concerns, and or questions. Orders: Orders AMB Urinalysis Automated Today Z13.9 - Encounter for screening, unspecified Medications: New mirabegron ER (Myrbetriq) 25 mg PO DAILY 30 tabs 1RF 30 days N30.10 - Interstitial cystitis (chronic) without hematuria, N32.81 - Overactive bladder, R35.1 - Nocturia, R39.15 - Urgency of urination Discontinued solifenacin (Vesicare) Discontinued Reason: Doctor's Order 10 mg PO DAILY 90 days 90 tabs 0RF Coding Level of Care Code Est Pt Level 4 (37602) Diagnoses Overactive bladder N32.81 Urinary incontinence R32
== END 2023-12-15 11:11 | disposition home or self-care (01) ==
LOC: HO.HUSH 10:21
PROVIDERS: PCP Family Medicine; Visit Provider Nurse Practitioner Family
DX: N32.81 Overactive bladder (principal); R32 Unspecified urinary incontinence; Z13.9 Encounter for screening, unspecified
CPT/HCPCS: 99214

== ENCOUNTER → 2023-12-15 10:21 | Outpatient (BNVA) | payer MEDICARE, OTHER, SELFPAY | PROVIDERS: PCP Family Medicine; Visit Provider Nurse Practitioner Family | DX: N32.81 Overactive bladder (principal); R32 Unspecified urinary incontinence | CPT/HCPCS: 81003; 99212 ==

== ENCOUNTER 2023-12-23 09:18 | Day surgery (SDC) | payer MEDICARE, OTHER, SELFPAY ==
[2023-12-21 10:33] VITALS: BMI 18.5
[2023-12-23 09:38] VITALS: BMI 19.5
[2023-12-23] MEDS: Sodium Phosphate,Mono-Dibasic 133 ML ENEMA PR (10:13)
[2023-12-23 10:20] VITALS: BP 138/60; PULSE 76; RESP 18; TEMP 36.3; O2SAT 99
[2023-12-23] MEDS: Lactated Ringers 1,000 ML 100 ML IVCONT (10:35)
--- NOTE | 2023-12-23 10:39 | MHC.SHP ---
Pre-Procedural Eval Section A - 24 Hr Update-Section A only Date of Service: 12/23/23 Section B - Complete if H&P > 30 days Chief Complaint: Surveillance for colon polyps Relevant Family History (Specify if Yes): No Relevant Social History: Tobacco Use (Former smoker) Present Medications: see Short Stay Collaborative assessment Medical History: Significant History (Abnormal CT scan Urinary incontinence CKD (chronic kidney disease), stage III COPD (chronic obstructive pulmonary disease) HTN (hypertension) BPV (benign positional vertigo) PVC (premature ventricular contraction) Apical lung nodule Fatty liver GERD (gastroesophageal reflux disease) Depression Recta) History of Previous Operations: Relevant previous surgery/procedure and date(s) (History of esophagogastroduodenoscopy (EGD) History of colonoscopy History of hernia surgery History of partial hysterectomy History of appendectomy) Allergies: Allergies Allergy/AdvReac Type Severity Reaction Status Date / Time citalopram [Celexa] AdvReac Unknown sleepiness Verified 12/15/23 11:01 paroxetine [Paxil] AdvReac Unknown sleepiness Verified 12/15/23 11:01 Review of Systems Sugical H&P ROS: Negative: Constitution, Cardiovascular, Respiratory and Gastrointestinal Exam Surgical H&P Exam: Normal: Heart, Normal: Lungs, Normal: Extremities and Normal: Abdomen Plan Diagnosis/Plan: Unchanged I have reviewed the history and physical and performed a pertinent physical examination on my patient. No changes have occurred unless specified. Time Spent With Patient Time: Total time managing care of this patient today ____ minutes.
--- NOTE | 2023-12-23 11:25 | HO.ANESPROP2 ---
[facility] Active Problems Active Problems: All Active Problems Pre-op examination (Acute) Overactive bladder (Acute) Urinary incontinence (Acute) Tubular adenoma of colon (Acute) Erosive esophagitis (Acute) GERD (gastroesophageal reflux disease) (Acute) Rectal prolapse (Acute) Internal and external prolapsed hemorrhoids (Acute) Past Medical History Medical History Weight loss Abnormal CT scan Urinary incontinence CKD (chronic kidney disease), stage III COPD (chronic obstructive pulmonary disease) HTN (hypertension) BPV (benign positional vertigo) PVC (premature ventricular contraction) Apical lung nodule Fatty liver GERD (gastroesophageal reflux disease) Depression Rectal prolapse Internal and external prolapsed hemorrhoids Family History Family History Mother Lung cancer Sister Lung cancer Family history of problems with anesthesia: No Surgical History Surgical History History of esophagogastroduodenoscopy (EGD) History of colonoscopy History of hernia surgery History of partial hysterectomy History of appendectomy History of Problems with Anesthesia: No Social History Social History Household Members Other:: lives with brother Are you a primary rn homecare to a significant other at home: No Alcohol intake: current Alcohol intake frequency: holidays/special occasions only Alcohol type: beer Comment: PCP aware of falls Patient Tobacco Use Status: Former Tobacco user Tobacco use type: Cigarette Years Smoked: 50 Use of substances other than those prescribed or required for medical reasons: No Have you been hit, kicked, punched, or otherwise hurt by someone within the past year? If so, by whom?: No Are you DNR?: No Advance Directives: No Advance Directives Information Provided: Yes Recently lost weight without trying: No Eating poorly because of decreased appetite: Yes Nutrition Risks: No Nutritional Risk Meds Allergies Allergy/AdvReac Type Severity Reaction Status Date / Time citalopram [Celexa] AdvReac Unknown sleepiness Verified 12/15/23 11:01 paroxetine [Paxil] AdvReac Unknown sleepiness Verified 12/15/23 11:01 Active Medications: Current Medications Lactated Ringer's (Lr) 1,000 mls @ 100 mls/hr IVCONT .Q10H ELIAS Last Admin: 11/15/24 10:35 Dose: 100 mls/hr Sodium Biphosphate/Sodium Phosphate (Sodium Phosphate,[place]-Dibasic 133 Ml Enema) 133 ml [place] ONCE PRN PRN Reason: Poor Colonoscopy Prep Results Last Admin: 12/23/23 10:13 Dose: 133 ml Home Medications ?Medication ?Instructions ?Recorded ?Confirmed ?Last Taken ?Type bupropion HCl 150 mg 24 hr tablet, 1 tab PO QAM 05/09/20 12/17/22 Unknown History extended release simvastatin 40 mg tablet 1 tab PO DAILY 05/09/20 12/17/22 Unknown History albuterol sulfate 90 mcg/actuation 2 puff inhalation Q6H PRN 06/30/20 12/17/22 Unknown History aerosol inhaler cholecalciferol (vitamin D3) 125 125 mcg PO DAILY 06/30/20 12/17/22 Unknown History mcg (5,000 unit) capsule multivitamin 1 tab PO DAILY 06/30/20 12/17/22 Unknown History glucosamine HCl 500 mg tablet 500 mg PO DAILY 09/24/20 12/17/22 Unknown History valsartan 320 mg tablet (Diovan) 320 mg PO DAILY 09/24/20 12/17/22 Unknown History vitamin E 200 unit capsule 200 unit PO DAILY 09/24/20 12/17/22 Unknown History Exam Height,Weight and Vital Signs: Height 5 ft 4 in Weight 51.426 kg Last Vital Signs Temp 97.3 F 12/23/23 10:20 Pulse 76 12/23/23 10:20 Resp 18 12/23/23 10:20 BP 138/60 12/23/23 10:20 Pulse Ox 99 12/23/23 10:20 O2 Del Method Room Air 12/23/23 10:20 Airway Mallampati Class: II TM Dist: >3cm Neck ROM: Limited Denture: Upper and Lower Loose/Missing/Broken Teeth: Yes, Upper and Lower Heart: RRR Lungs: CTA Assessment and Plan Final Anesthetic Review Family History of Problems with Anesthesia: No History of Problems with Anesthesia: No NPO: Yes ASA Class: III Final Preanesthetic Review: Meds/Allgs Chart Reviewed, Consent Obtained/Reviewed and Anes Risks/Benef Reviewed Patient Risk: Intermediate Procedure Risk: Low Anesthetic Plan Anesthetic Plan: MAC: Disposition: Standard PACU
--- NOTE | 2023-12-23 11:58 | P.OPN-COLO_ITS ---
Colonoscopy Operative Note Operative Note Date of Service: 12/23/23 Narrative: COLONOSCOPY TILL CECUM WITH BIOPSIES Pre-op diagnosis: Surveillance for colon polyps. Post-op diagnosis:? Colon polyps, Diverticulosis, rectal prolapse Endoscopist:? Qing Jacobsen MD Anesthesia:?MAC Consent: Indications for the procedure and potential complications of bleeding, perforation, reaction to medications and missed diagnosis were discussed with the patient and informed consent was obtained. Instrument: Olympus CF H 190 L variable stiffness adult colonoscope Monitoring: Vital signs and clinical assessment, intermittent blood pressure monitoring, continuous EKG monitoring, Pulse oximetry and Carbon Dioxide monitoring were done throughout the procedure. Please see anesthesia flowsheet. Colon withdrawl time was 22 minutes. Procedure: The patient was placed in the left lateral decubitis position and pre-procedure medications were administered. After a digital rectal examination of the ano-rectum, the video colonoscope was inserted into the rectum and advanced through the colon to the cecum. The colonoscope was slowly withdrawn in a retrograde panoramic fashion and the colon mucosa was carefully examined including a retroflexed view of the rectum. Findings and interventions are described below. Procedure Difficulty: without difficulty - colon was long and tortuous and there was spasm and some loop formation Findings: Terminal Ileum: Not evaluated Cecum: Two 3-4 mm sessile polyps - removed with a cold biopsy Ascending Colon: A 3-4 mm sessile polyp - removed with a cold biopsy Transverse Colon: Normal Descending Colon: Moderate diverticulosis Sigmoid Colon: Severe diverticulosis with luminal narrowing and tortuosity Rectum: Edematous and erythematous folds at 10-12 cms - (biopsies obtained during previous colonoscopy confirmed a diagnosis of rectal prolapse). Ano-rectum:? Pt was given a fleet enema on arrival and developed rectal prolapse when she expelled the enema which was reduced by digital manipulation prior to starting the colonoscopy procedure.? Ano-rectum: Moderate internal hemorrhoids Colon preparation: Good after copious irrigation. [place] Bowel Preparation Scale Right colon; 2 Transverse colon: 2 Left colon; 2 (0 = Unprepared colon segment with mucosa not seen due to solid stool that cannot be cleared. 1 = Portion of mucosa of the colon segment seen, but other areas of the colon segment not well seen due to staining, residual stool and/or opaque liquid. 2 = Minor amount of residual staining, small fragments of stool and/or opaque liquid, but mucosa of colon segment seen well. 3 = Entire mucosa of colon segment seen well with no residual staining, small fragments of stool or opaque liquid) Impression and Post Procedure Diagnosis: Colonoscopy Findings: Three small polyps were removed Moderate to severe diverticulosis seen in the left colon Edematous and erythematous folds in the rectum at 10-12 cms - (biopsies obtained during previous colonoscopy confirmed a diagnosis of rectal prolapse Moderate hemorrhoids on retroflexed exam. Plan: Pt has a FU appointment on 12/27/22 with Ally Silver NP Repeat Colonoscopy is not recommended given advanced age and multiple comorbidities. Above findings were reviewed with the patient and relevant handouts were given and the discharge area.
[2023-12-23 12:00] VITALS: BP 108/46; PULSE 77; RESP 12; TEMP 36.4; O2SAT 97
[2023-12-23 12:14] VITALS: BP 105/51; PULSE 77; RESP 16; TEMP 36.4; O2SAT 98
== END 2023-12-23 12:44 | disposition home or self-care (01) ==
PROVIDERS: PCP Family Medicine; Visit Provider Internal Medicine Gastroenterology
PROC: 0DJD8ZZ Inspection of Lower Intestinal Tract, Via Natural or Artificial Opening Endoscopic (ICD-10-PCS; CPT 45378; principal; 2023-12-23 11:10)
DX: Z12.11 Encounter for screening for malignant neoplasm of colon (principal); D12.0 Benign neoplasm of cecum; D12.2 Benign neoplasm of ascending colon; K56.2 Volvulus; K57.30 Diverticulosis of large intestine without perforation or abscess without bleeding; K64.8 Other hemorrhoids; K62.3 Rectal prolapse; Z86.0101 Personal history of adenomatous and serrated colon polyps; J44.9 Chronic obstructive pulmonary disease, unspecified; I12.9 Hypertensive chronic kidney disease with stage 1 through stage 4 chronic kidney disease, or unspecified chronic kidney disease; N18.4 Chronic kidney disease, stage 4 (severe); K76.0 Fatty (change of) liver, not elsewhere classified; K21.9 Gastro-esophageal reflux disease without esophagitis; Z87.891 Personal history of nicotine dependence
CPT/HCPCS: 45380; 88305; J2003; J2704

== ENCOUNTER → 2023-12-23 09:18 | Outpatient (BNV) | payer MEDICARE, OTHER, SELFPAY | PROVIDERS: PCP Family Medicine; Visit Provider Internal Medicine Gastroenterology | DX: Z12.11 Encounter for screening for malignant neoplasm of colon (principal); Z86.0100 Personal history of colon polyps, unspecified; D12.0 Benign neoplasm of cecum; K57.30 Diverticulosis of large intestine without perforation or abscess without bleeding | CPT/HCPCS: 45380 ==

== ENCOUNTER 2024-01-12 09:52 | Outpatient (REF) | payer MEDICARE, OTHER, SELFPAY ==
[2024-01-12 10:10] LABS: MANUAL DIFF FLAG NO
[2024-01-12 10:51] LABS: Basophils Absolute Auto 0.1 X10*3/uL (0.0-0.2); Basophils Percent Auto 1.3 % (0-2); Hematocrit 35.5 % (37.0-47.0); Hemoglobin 11.7 g/dl (12.0-16.0); Imm Gran Abs Auto 0.01 X10*3/uL (0.00-0.03); Imm Gran Pct Auto 0.2 % (0.0-0.4); Lymphocytes Absolute Auto 1.5 X10*3/uL (1.2-4.9); Lymphocytes Percent Auto 32.8 % (20-40); Mean Corpuscular Hemoglobin 28.7 pg (27.0-33.0); Mean Corpuscular Volume 87.2 fL (80.0-98.0); Mean Platelet Volume 9.1 fL (9.4-12.3); Monocytes Absolute Auto 0.6 X10*3/uL (0.1-1.2); Monocytes Percent Auto 13.4 % (2-11); Neutrophils Absolute Auto 2.4 x10*3/uL (2.0-8.3); Neutrophils Percent Auto 52.3 % (45-73); Platelet Count 229 X10*3/uL (160-400); Red Blood Count 4.07 X10*6/uL (4.20-5.50); Red Cell Distribution Width 13.9 % (11.0-16.0); White Blood Count 4.6 X10*3/uL (4.8-10.8)
[2024-01-12 11:34] LABS: Alanine Aminotransferase 12 U/L (0-31); Albumin Level 4.1 g/dL (3.5-5.0); Alkaline Phosphatase 72 U/L (39-117); Anion Gap 13 (12-20); Aspartate Amino Transferase 23 U/L (5-31); Bilirubin Total 0.5 mg/dL (0.0-1.0); Blood Urea Nitrogen 21 mg/dL (9-16); Calcium 9.9 mg/dL (8.4-10.2); Carbon Dioxide 24 mmol/L (22-29); Chloride 105 mmol/L (96-108); Estimated Glomerular Filt Rate 33; Glucose Random 94 mg/dL (60-115); Potassium 4.1 mmol/L (3.3-5.1); Sodium 138 mmol/L (135-145); Total Protein 6.9 g/dL (6.5-8.0)
== END 2024-01-12 09:53 | disposition home or self-care (01) ==
LOC: HO.LAB 09:52
PROVIDERS: PCP Family Medicine; Visit Provider Family Medicine
DX: I10 Essential (primary) hypertension (principal); R53.83 Other fatigue
CPT/HCPCS: 36415; 80053; 85025

== ENCOUNTER 2024-04-11 09:53 | Outpatient (AMB) | payer MEDICARE, OTHER, SELFPAY ==
--- NOTE | 2024-04-11 10:14 | A.OFFVIS_ITS ---
Intake Visit Reasons: 3 month Intake Note: Patient presents today for a follow-up on: OAB and incontinence Med: myrbetriq Allergies to Antibiotic- No Known Allergies Blood Thinner- None Post Void Residual: 10ml's Reprint Sorter Required: No Accompanied by: Self / Same As Patient Allergies citalopram [Celexa] Adverse Reaction (Unknown, Verified 04/11/24 10:57) sleepiness paroxetine [Paxil] Adverse Reaction (Unknown, Verified 04/11/24 10:57) sleepiness Medication List - Last Reconciled 04/11/24 by CHARLIE Aguilar- albuterol sulfate 90 mcg/actuation 2 puffs inhalation Q6H PRN bupropion HCl XL mg PO DAILY cholecalciferol (vitamin D3) 125 mcg PO DAILY glucosamine HCl 500 mg PO DAILY multivitamin 1 tab PO DAILY pantoprazole 40 mg PO BID psyllium seed (sugar) (Metamucil (sugar) oral powder) 1 tbsp PO BID simethicone (Gas Relief (simethicone)) 125 mg PO ONCE simethicone (Gas Relief (simethicone)) 125 mg PO ONCE simvastatin 1 tab PO DAILY valsartan (Diovan) 320 mg PO DAILY vibegron (Gemtesa) 75 mg PO DAILY 30 days vitamin E 200 units PO DAILY HPI Comments Details: Imelda is a pleasant 83-year-old female patient of . She has a past medical history of chronic kidney disease stage 3, COPD, hypertension, benign positional vertigo, PVCs, fatty liver, GERD, depression, rectal prolapse, and hemorrhoids. She presents to the office today for follow-up of her urinary incontinence and overactive bladder. In discussion with the patient today she reports to be doing and feeling well. She discusses no improvement in urinary urgency and frequency with trial of Myrbetriq. She has previously trialed tolterodine, oxybutynin, and VESIcare without improvement. In office urinalysis results reviewed with the patient today. PVR 10 mL. We discussed bladder triggers and irritants as she does endorse to drinking increased amounts of coffee daily. She otherwise denies hematuria, dysuria, foul-smelling urine, flank pain, fever, and or chills. We discussed possible near future in office cystoscopy and or urodynamics if symptoms persist. She otherwise offers no other issues or concerns at this time. [facility] Medical History Weight loss Abnormal CT scan Urinary incontinence CKD (chronic kidney disease), stage III COPD (chronic obstructive pulmonary disease) HTN (hypertension) BPV (benign positional vertigo) PVC (premature ventricular contraction) Apical lung nodule Fatty liver GERD (gastroesophageal reflux disease) Depression Rectal prolapse Internal and external prolapsed hemorrhoids Surgical History History of esophagogastroduodenoscopy (EGD) History of colonoscopy History of hernia surgery History of partial hysterectomy History of appendectomy Family History Mother Lung cancer Sister Lung cancer Social History Household Members Other:: lives with brother Are you a primary healthcare social worker to a significant other at home: No Alcohol intake: current Alcohol intake frequency: holidays/special occasions only Alcohol type: beer Comment: PCP aware of falls Patient Tobacco Use Status: Former Tobacco user Tobacco use type: Cigarette Years Smoked: 50 Review of Systems Const Reports as per HPI Eyes Reports no additional complaints Card Reports as per [facility] Resp Reports as per [facility] GI Reports as per HPI Reports as per HPI Musc Reports no additional complaints Neuro Reports as per HPI Psych Reports as per HPI Physical Exam Const General: cooperative, healthy appearing, comfortable, no acute distress, well developed, alert and awake Nutritional Appearance: thin Orientation/consciousness: patient oriented x3 Limitations: no limitations HEENT Head: Yes normal to inspection, Yes normocephalic and Yes atraumatic Ears: hearing grossly normal bilaterally Eyes General: appearance normal, both eyes and all related structures Neck Neck: Yes normal visual inspection and Yes trachea midline Chest Chest palpation & inspection: normal inspection of the chest Resp Effort & Inspection: normal respiratory effort and able to speak in complete sentences Cardio Rate: regular rate GI Inspection: Yes normal to inspection General: Yes no CVA tenderness Back/Spine/Pelvis Back: no CVA tenderness Skin General skin exam: no rashes or lesions noted Neuro General: patient oriented x3 Extrem General: Yes normal to inspection Psych Appearance: grossly normal and well kempt Mental Status: mental status grossly normal Speech and movement: Normal speech and movement present and Clear speech present Affect: normal affect Attitude: cooperative Thought process: Normal thought process present Thought content: Normal thought content present Insight: Fair insight present (Psych) Judgement: Fair judgement present (Psych) Office Procedures Post Void Residual Post Residual Void Post Void Residual (PVR): 10 05212-Aswh Void Residual by ultrasound Results AMB Urinalysis, Automated UA Leukoctes 0 Adelaida/uL Last Edit by Moz on 04/11/24 10:45 UA Nitrite Last Edit by Moz on 04/11/24 10:45 UA Urobilinogen 0.2 mg/dL Last Edit by Moz on 04/11/24 10:45 UA Protein 0 mg/dL Last Edit by Moz on 04/11/24 10:45 UA pH 6.0 Last Edit by Moz on 04/11/24 10:45 UA Blood 0 Javier/uL Last Edit by Moz on 04/11/24 10:45 UA Specific Holliday 1.010 Last Edit by Moz on 04/11/24 10:45 UA Ketone Negative Last Edit by Moz on 04/11/24 10:45 UA Bilirubin 0 mg/dL Last Edit by Moz on 04/11/24 10:45 UA Glucose 0 mg/dL Last Edit by Moz on 04/11/24 10:45 Results Reviewed Results Reviewed: Laboratory Last Values Urine pH (Auto) 6.0 04/11/24 10:41 Specific [place] (Auto) 1.010 04/11/24 10:41 Urine Protein (Auto) 0 mg/dL 04/11/24 10:41 Glucose (UA)(Auto) 0 mg/dL 04/11/24 10:41 Urine Ketones (Auto) Negative 04/11/24 10:41 Urine Blood (Auto) 0 Javier/uL 04/11/24 10:41 Urine Bilirubin (Auto) 0 mg/dL 04/11/24 10:41 Urine Urobilinogen (Auto) 0.2 mg/dL 04/11/24 10:41 Leukocyte Esterase (Auto) 0 Adelaida/uL 04/11/24 10:41 Assessment & Plan Assessment & Plan (1) Overactive bladder: Code(s): N32.81 - Overactive bladder Category: Medical Plan In office urinalysis results reviewed with the patient today; as noted above. PVR 10 mL. Stop Myrbetriq. Start Gemtesa as discussed and prescribed. We discussed potential for near future in office urodynamics for further assessment evaluation. We discussed bladder triggers/irritants at length All questions were answered. Follow-up in 1-3 months with PVR; or sooner with any issues, concerns, and or questions Orders: Orders AMB Urinalysis Automated Today Z13.9 - Encounter for screening, unspecified AMB Post Void Residual by ultrasound Today N32.81 - Overactive bladder Medications: New vibegron (Gemtesa) 75 mg PO DAILY 30 tabs 3RF 30 days N32.81 - Overactive bladder Discontinued 2 mirabegron ER (Myrbetriq) Discontinued Reason: Doctor's Order 25 mg PO DAILY 60 tabs 5RF N30.10 - Interstitial cystitis (chronic) without hematuria, N32.81 - Overactive bladder, R35.1 - Nocturia, R39.15 - Urgency of urination Patient Instructions: The patient had an opportunity to ask questions regarding the treatment plan. All questions were answered. Physical exam, labs, and imaging were discussed and reviewed in detail. As well as risks, benefits, and discussion of treatment choices. No major barriers to understanding were identified. The patient expressed understanding and agreement with the above treatment plan. The patient was made aware they should contact our office by phone for worsening of their current condition, the appearance of new symptoms, or with any questions or concerns. Compliance is encouraged with any medications and follow up testing that is ordered. It is a privilege to be allowed the opportunity to participate in? your urological care.? Again, if you have any questions or concerns If you have any questions or concerns please do not hesitate to contact me. The office is [phone]. This note is constructed using voice recognition software. While every effort has been made to ensure accuracy registered radiologic technologist errors may have been included. Yours sincerely, CHARLIE Aguilar-BC Coding Level of Care Code Est Pt Level 4 (93719) Complex EM visit Add On G2211 Diagnoses Overactive bladder N32.81 CPT Codes Post Residual Void - PVR CPT Code: 22783-Bdes Void Residual by ultrasound ([id number])
--- OUTSIDE RECORDS SUMMARY | 2024-04-11 11:23 | XMS_ITS | Clinical Summary ---
Author Organization [facility] ity Address [address] [place] [address] Care Team Providers Care Director Digital Catalogue Name Role Phone Unavailable Primary Care Provider Unavailabl e Social History Tobacco Use Types Packs/Day Years Used Date Smoking Tobacco: Never Assessed Comments Unknown Sex and Gender Information Value Date Recorded Sex Assigned at Not on file Legal Sex Female 7:35 PM EST Gender Identity Not on file Sexual Orientation Not on file Plan of Treatment Health Maintenance Due Date Last Done Comments DTaP,Tdap,and Td Vaccines (1 - Tdap) 1961 Pneumococcal Vaccine: 50+ Ye ars (1 of 1 - PCV) 1992 Zoster Vaccines (1 of 2) 1992 RSV Immunization Patients 60 + Years Old (1 - 1-dose 75+ series) 2017 COVID-19 Vaccine (1 - 2023-2 5 season) 2023 Influenza Vaccine (#1) 2023 HIB Vaccines Aged Out No longer eligi ble based on patient's age to complete this topic HPV Vaccines Aged Out No longer eligi ble based on patient's age to complete this topic Hepatitis A Vaccines Aged Out No long er eligible based on patient's age to complete this topic Hepatitis B Vaccines Aged Out No long er eligible based on patient's age to complete this topic IPV Vaccines Aged Out No longer eligi ble based on patient's age to complete this topic MMR Vaccines Aged Out No longer eligi ble based on patient's age to complete this topic Meningococcal ACWY Vaccine Aged Out N o longer eligible based on patient's age to complete this topic Meningococcal B Vacine Aged Out No lo nger eligible based on patient's age to complete this topic RSV Immunization Patients Un chely 20 months Aged Out No longer eligible b ased on patient's age to complete this topic Varicella Vaccines Aged Out No longer eligible based on patient's age to complete this topic
== END 2024-04-11 10:58 | disposition home or self-care (01) ==
LOC: HO.HUSH 09:53
PROVIDERS: PCP Family Medicine; Visit Provider Nurse Practitioner Family
DX: N32.81 Overactive bladder (principal); Z13.9 Encounter for screening, unspecified
CPT/HCPCS: 99214; G2211

== ENCOUNTER → 2024-04-11 09:53 | Outpatient (BNVA) | payer MEDICARE, OTHER, SELFPAY | PROVIDERS: PCP Family Medicine; Visit Provider Nurse Practitioner Family | DX: N32.81 Overactive bladder (principal); N30.10 Interstitial cystitis (chronic) without hematuria; R35.1 Nocturia; R32 Unspecified urinary incontinence; R39.15 Urgency of urination | CPT/HCPCS: 51798; 81003; 99212 ==

== ENCOUNTER 2024-07-03 10:48 | Outpatient (AMB) | payer MEDICARE, OTHER, SELFPAY ==
--- NOTE | 2024-07-03 10:49 | A.OFFVIS_ITS ---
Vital Signs 07/03/24 10:50 Height 5 ft 4 in Weight 103 lb 9.876 oz BMI 17.8 BP 166/70 H Blood Pressure Location Lt brachial Position Sitting Pulse 83 Intake Visit Reasons: s/p colonoscopy (12/23/23) Intake Note: Imelda presents in the office as a follow up colonoscopy. CC: She states that shes tired. She has not had any issues - she feels okay for the most part. Was unable to find her list of her medications. Sheeter Machine Operator Required: No Allergies citalopram [Celexa] Adverse Reaction (Unknown, Verified 07/03/24 10:52) sleepiness paroxetine [Paxil] Adverse Reaction (Unknown, Verified 07/03/24 10:52) sleepiness HPI HPI s/p colonoscopy (12/23/23): Details: Assessment & Plan (1) Tubular adenoma of colon: Comment: scope repeat in 3 years due to more than 3 polyps Code(s): D12.6 - Benign neoplasm of colon, unspecified Category: Medical (2) GERD (gastroesophageal reflux disease): Code(s): K21.9 - Gastro-esophageal reflux disease without esophagitis Category: Medical (3) Rectal prolapse: Code(s): K62.3 - Rectal prolapse Category: Medical Plan She continues to do well on her pantoprazole except when she forgets to take it! She never took pills and dislikes them, but realized she really needs them. She never heard to have the colonoscopy scheduled - I will re input the task as this seems to have fallen in the cracks. She is quite agreeable to having it and has the PEG prep at home. She continues to struggle at times with her stooling, but really does not want surgery for her rectocele. ROV 6 mos. Orders: Orders Colonoscopy - GI Use Only Today D12.6 - Benign neoplasm of colon, unspecified Medications: Refilled pantoprazole 40 mg PO BID 180 tabs 3RF psyllium seed (sugar) (Metamucil (sugar) oral powder) 1 tbsp PO BID 1,254 gr COLONOSCOPY 12/23/23 Findings: Terminal Ileum: Not evaluated Cecum: Two 3-4 mm sessile polyps - removed with a cold biopsy Ascending Colon: A 3-4 mm sessile polyp - removed with a cold biopsy Transverse Colon: Normal Descending Colon: Moderate diverticulosis Sigmoid Colon: Severe diverticulosis with luminal narrowing and tortuosity Rectum: Edematous and erythematous folds at 10-12 cms - (biopsies obtained during previous colonoscopy confirmed a diagnosis of rectal prolapse). Ano-rectum:? Pt was given a fleet enema on arrival and developed rectal prolapse when she expelled the enema which was reduced by digital manipulation prior to starting the colonoscopy procedure.? Ano-rectum: Moderate internal hemorrhoids Impression and Post Procedure Diagnosis: Colonoscopy Findings: Three small polyps were removed Moderate to severe diverticulosis seen in the left colon Edematous and erythematous folds in the rectum at 10-12 cms - (biopsies obtained during previous colonoscopy confirmed a diagnosis of rectal prolapse Moderate hemorrhoids on retroflexed exam. Plan: Pt has a FU appointment on 12/27/22 with Ally Silver NP Repeat Colonoscopy is not recommended given advanced age and multiple comorbidities. BIOPSY Received: 12/23/23 Diagnosis A. Cecum, polypectomy: Fragments of tubular adenoma; negative for high-grade dysplasia or carcinoma. B. Colon, ascending, polypectomy: Tubular adenoma; negative for high-grade dysplasia or carcinoma TODAY'S VISIT REPEAT colonoscopy not recommended by endoscopist related to patient's age. The procedure was well tolerated. The results were explained and the patient is agreeable to the follow-up interval as stated. The bowel pattern has returned to normal. Education was provided to tell any 1st degree relatives about their findings to be sure that they are screened by age 45. Educated that they will be put on a recall list when it is time for their repeat scope but should they move out of state or away from the hospital they will need to remember along with their primary to repeat the procedure in a timely fashion to avoid any adverse complications. Imelda indicates she would like to be asked in 5 years and make a determination then if she wants to have a repeat colonoscopy-she seems to have some feeling that she may desire this. She continues on pantoprazole add Metamucil. She stopped the metamucil as it did not seem to help her. Again, she has a significant rectocele that she does not desire to repair. She also has urinary sx. She has OAB sx. ROV 6 mos. COUNT INCLUDES THE [facility] Medical History (Updated 07/03/24 @ 10:58 by CHIKA Aguirre) Pre-op examination Weight loss Abnormal CT scan Urinary incontinence CKD (chronic kidney disease), stage III COPD (chronic obstructive pulmonary disease) HTN (hypertension) BPV (benign positional vertigo) PVC (premature ventricular contraction) Apical lung nodule Fatty liver GERD (gastroesophageal reflux disease) Depression Rectal prolapse Internal and external prolapsed hemorrhoids Surgical History History of esophagogastroduodenoscopy (EGD) History of colonoscopy History of hernia surgery History of partial hysterectomy History of appendectomy Family History Mother Lung cancer Sister Lung cancer Social History Household Members Other:: lives with brother Are you a primary home care consultant to a significant other at home: No Alcohol intake: current Alcohol intake frequency: holidays/special occasions only Alcohol type: beer Comment: PCP aware of falls Patient Tobacco Use Status: Former Tobacco user Tobacco use type: Cigarette Years Smoked: 50 Review of Systems Const Denies fatigue, Denies fever(s), Denies night sweats, Denies poor appetite and Denies weight loss ENT Reports Normal hearing present, Denies dental pain, Denies dysphagia, Denies hearing loss, Denies mouth pain, Denies odynophagia, Denies throat swelling, Denies tongue swelling and Reports other (Dentition adequate) Card Reports no additional complaints Resp Reports no additional complaints GI Details: Denies abdominal pain, Denies melena, Denies bloating, Denies hematochezia, Reports constipation, Denies GI cramping, Denies dysphagia, Denies excessive flatus, Denies early satiety, Denies heartburn, Denies diarrhea, Denies nausea, Denies odynophagia, Denies vomiting and Denies hematemesis Details: Urinary frequency Skin/Breast Denies pruritus, Denies lesions, Denies rash and Denies jaundice Neuro Reports Normal hearing present and Denies Abnormal speech present Endo Denies fatigue Aller/Immun Denies throat swelling and Denies tongue swelling Physical Exam Vital Signs: Last Vital Signs Pulse 83 07/03/24 10:50 BP 166/70 H 07/03/24 10:50 BMI result Body Mass Index 17.8 Const General: cooperative, no acute distress, well developed and well groomed Nutritional Appearance: average body habitus and well nourished Orientation/consciousness: oriented to person, oriented to place and oriented to time Limitations: No language barrier HEENT Head: Yes normocephalic and Yes atraumatic Eyes General: appearance normal, both eyes and all related structures Pupils: Equal, round and reactive pupils present Neck Neck: Yes normal visual inspection and Yes no lymphadenopathy Thyroid: Thyroid normal Resp Effort & Inspection: normal respiratory effort and able to speak in complete sentences Auscultation: clear to auscultation bilaterally Cardio Rate: regular rate Rhythm: regular rhythm Heart sounds: Normal, physiologic split S2 sound present Peripheral pulses: radial pulses present and posterior tibial pulses present GI Inspection: No distended and No Abdominal panniculus present Palpation (GI): Soft to palpation, nontender, no guarding, not rigid and No hepatosplenomegaly present Percussion: Yes normal to percussion Auscultation: normal bowel sounds Rectal Exam - Female: deferred Skin General skin exam: no rashes or lesions noted, turgor normal, skin not dry, no jaundice, No spider nevi and no striae Rashes: no rashes Nails: normal Neuro General: oriented to person, oriented to place and oriented to time Cranial nerves: Yes Equal, round and reactive pupils present and Yes Normal hearing present Speech: No Abnormal speech present Extrem General: Yes normal to inspection, No clubbing, No cyanosis and No edema Psych Appearance: grossly normal and well kempt Mental Status: mental status grossly normal Speech and movement: Normal speech and movement present Affect: normal affect Attitude: cooperative Thought process: Normal thought process present and not confabulating Thought content: Normal thought content present Insight: Fair insight present (Psych) Judgement: Fair judgement present (Psych) Assessment & Plan Assessment & Plan (1) Tubular adenoma of colon: Comment: 01/2024 scope= 2 TA is repeat colonoscopy not recommended by endoscopist due to patient's age; [age] scope repeat in 3 years due to more than 3 polyps Code(s): D12.6 - Benign neoplasm of colon, unspecified Category: Medical (2) GERD (gastroesophageal reflux disease): Code(s): K21.9 - Gastro-esophageal reflux disease without esophagitis Category: Medical (3) Rectal prolapse: Code(s): K62.3 - Rectal prolapse Category: Medical (4) Erosive esophagitis: Code(s): K22.10 - Ulcer of esophagus without bleeding Category: Medical (5) Internal and external prolapsed hemorrhoids: Code(s): K64.8 - Other hemorrhoids Category: Medical Plan REPEAT colonoscopy not recommended by endoscopist related to patient's age. The procedure was well tolerated. The results were explained and the patient is agreeable to the follow-up interval as stated. The bowel pattern has returned to normal. Education was provided to tell any 1st degree relatives about their findings to be sure that they are screened by age 45. Educated that they will be put on a recall list when it is time for their repeat scope but should they move out of state or away from the hospital they will need to remember along with their primary to repeat the procedure in a timely fashion to avoid any adverse complications. Imelda indicates she would like to be asked in 5 years and make a determination then if she wants to have a repeat colonoscopy-she seems to have some feeling that she may desire this. She continues on pantoprazole add Metamucil. She stopped the metamucil as it did not seem to help her. Again, she has a significant rectocele that she does not desire to repair. She also has urinary sx. She has OAB sx. ROV 6 mos. Coding Level of Care Code Est Pt Level 3 (34024) Diagnoses Tubular adenoma of colon D12.6 GERD (gastroesophageal reflux disease) K21.9 Rectal prolapse K62.3 Erosive esophagitis K22.10 Internal and external prolapsed hemorrhoids K64.8
[2024-07-03 10:50] VITALS: BP 166/70; PULSE 83; BMI 17.8
--- OUTSIDE RECORDS SUMMARY | 2024-07-03 11:37 | XMS_ITS | Clinical Summary ---
Author Organization [facility] ity Address [address] [place] [address] Care Team Providers Care Milk Treater Name Role Phone Unavailable Primary Care Provider [...] Vaccines (1 of 2) 1992 RSV Immunization Adult Patie nts (1 - 1-dose 75+ series) 2017 COVID-19 Vaccine ( - 2023-2 5 season) 2023 Influenza Vaccine (Season Ended) 2024 HIB Vaccines Aged Out No longer eligi [...] age to complete this topic Meningococcal B Vaccine Aged Out No l onger eligible based on patient's age to complete this topic RSV Immunization Patients Un chely 20 months Aged Out No longer eligible b ased on patient's age to complete this topic Varicella Vaccines Aged Out No longer eligible based on patient's age to complete this topic
== END 2024-07-03 11:17 | disposition home or self-care (01) ==
PROVIDERS: PCP Family Medicine; Visit Provider Nurse Practitioner
DX: D12.6 Benign neoplasm of colon, unspecified (principal); K21.9 Gastro-esophageal reflux disease without esophagitis; K62.3 Rectal prolapse; K22.10 Ulcer of esophagus without bleeding; K64.8 Other hemorrhoids
CPT/HCPCS: 99213

== ENCOUNTER → 2024-07-03 10:48 | Outpatient (BNVA) | payer MEDICARE, OTHER, SELFPAY | PROVIDERS: PCP Family Medicine; Visit Provider Nurse Practitioner | DX: K21.9 Gastro-esophageal reflux disease without esophagitis (principal); K22.10 Ulcer of esophagus without bleeding; K62.3 Rectal prolapse; K64.8 Other hemorrhoids; D12.6 Benign neoplasm of colon, unspecified | CPT/HCPCS: 99212 ==

== ENCOUNTER 2024-07-06 13:56 | Outpatient (REF) | payer MEDICARE, OTHER, SELFPAY ==
--- OUTSIDE RECORDS SUMMARY | 2024-07-06 14:01 | XMS_ITS | Clinical Summary ---
Author Organization [facility] ity Address [address] [place] [address] Care Team Providers Care Branding Specialist Name Role Phone Unavailable Primary Care Provider [...]
[2024-07-06 14:08] LABS: MANUAL DIFF FLAG NO
[2024-07-06 14:34] LABS: Basophils Percent Auto 0.7 % (0-2); Eosinophils Percent Auto 0.2 % (0-4); Hematocrit 35.5 % (37.0-47.0); Hemoglobin 11.1 g/dl (12.0-16.0); Imm Gran Abs Auto 0.01 X10*3/uL (0.00-0.03); Imm Gran Pct Auto 0.2 % (0.0-0.4); Lymphocytes Absolute Auto 1.4 X10*3/uL (1.2-4.9); Lymphocytes Percent Auto 24.4 % (20-40); Mean Corpuscular HGB Conc 31.3 g/dl (31.0-35.0); Mean Corpuscular Hemoglobin 26.9 pg (27.0-33.0); Mean Platelet Volume 9.4 fL (9.4-12.3); Monocytes Absolute Auto 0.5 X10*3/uL (0.1-1.2); Monocytes Percent Auto 8.4 % (2-11); Neutrophils Absolute Auto 3.7 x10*3/uL (2.0-8.3); Neutrophils Percent Auto 66.1 % (45-73); Platelet Count 207 X10*3/uL (160-400); Red Blood Count 4.13 X10*6/uL (4.20-5.50); Red Cell Distribution Width 15.2 % (11.0-16.0); White Blood Count 5.6 X10*3/uL (4.8-10.8)
[2024-07-06 15:13] LABS: Erythrocyte Sedimentation Rate 44 MM/HR (0-20)
[2024-07-06 16:16] LABS: Alanine Aminotransferase 14 U/L (0-31); Albumin Level 4.2 g/dL (3.5-5.0); Anion Gap 10 (12-20); Aspartate Amino Transferase 27 U/L (5-31); Bilirubin Total 0.5 mg/dL (0.0-1.0); Blood Urea Nitrogen 23 mg/dL (9-16); Calcium 10.3 mg/dL (8.4-10.2); Carbon Dioxide 26 mmol/L (22-29); Chloride 109 mmol/L (96-108); Estimated Glomerular Filt Rate 40; Glucose Random 87 mg/dL (60-115); Potassium 4.1 mmol/L (3.3-5.1); Sodium 141 mmol/L (135-145)
[2024-07-06 16:30] LABS: Free T4 (Free Thyroxine) 1.02 ng/dL (0.71-1.85)
[2024-07-06 17:07] LABS: Alkaline Phosphatase 86 U/L (39-117)
== END 2024-07-06 13:57 | disposition home or self-care (01) ==
LOC: HO.LAB 13:56
PROVIDERS: PCP Family Medicine; Visit Provider Family Medicine
DX: R44.3 Hallucinations, unspecified (principal); R27.0 Ataxia, unspecified
CPT/HCPCS: 36415; 80053; 84439; 85025; 85652

== ENCOUNTER → 2024-07-12 10:15 | Outpatient (BNVA) | payer MEDICARE, OTHER, SELFPAY | PROVIDERS: PCP Family Medicine; Visit Provider Nurse Practitioner Family | DX: Z13.89 Encounter for screening for other disorder (principal) ==

== ENCOUNTER 2024-07-19 10:40 | Outpatient (REF) | payer MEDICARE, OTHER, SELFPAY ==
--- NOTE | ~2024-07-19 | CT_ITS ---
CLINICAL HISTORY: VISUAL HALLUUCINATIONS CT head with and without contrast Comparison: CT/REG - CT HEAD/BRAIN WO CON - 05/09/20 14:24 EDT Findings: No intra-axial mass, midline shift, hydrocephalus, or acute hemorrhage. Brain volume is appropriate for age. There is no significant white matter disease. The visualized paranasal sinuses and mastoid air cells are normal. The orbits are within normal limits. There is no acute fracture. IMPRESSION: 1. No acute intracranial findings. This document has been electronically signed by: Shana Walters MD on 07/19/2024 16:56:18
[2024-07-19] MEDS: iohexoL 350 MG/ML 100 ML INFUS..BTL IV (12:20)
--- OUTSIDE RECORDS SUMMARY | 2024-07-19 12:29 | XMS_ITS | Clinical Summary ---
Author Organization [facility] ity Address [address] [place] [address] Care Team Providers Care School Vocational Educator Name Role Phone Unavailable Primary Care Provider [...]
== END 2024-07-19 10:41 | disposition home or self-care (01) ==
LOC: HO.CT 10:40
PROVIDERS: PCP Family Medicine; Visit Provider Family Medicine
DX: R44.1 Visual hallucinations (principal)
CPT/HCPCS: 70470; Q9967

== ENCOUNTER → 2024-07-19 10:42 | Outpatient (BNV) | payer MEDICARE, OTHER, SELFPAY | PROVIDERS: PCP Family Medicine; Visit Provider Radiology Diagnostic Radiology | DX: R44.1 Visual hallucinations (principal) | CPT/HCPCS: 70470 ==

== ENCOUNTER 2024-07-20 10:03 | Outpatient (REF) | payer MEDICARE, OTHER, SELFPAY ==
--- OUTSIDE RECORDS SUMMARY | 2024-07-20 10:51 | XMS_ITS | Clinical Summary ---
Author Organization [facility] ity Address [address] [place] [address] Care Team Providers Care Litigation Manager Name Role Phone Unavailable Primary Care Provider [...]
== END 2024-07-20 10:04 | disposition home or self-care (01) ==
LOC: HO.MAMMO 10:03
PROVIDERS: Visit Provider Family Medicine
DX: Z12.31 Encounter for screening mammogram for malignant neoplasm of breast (principal)
CPT/HCPCS: 77063; 77067

== ENCOUNTER → 2024-07-20 10:45 | Outpatient (BNV) | payer MEDICARE, OTHER, SELFPAY | PROVIDERS: Visit Provider Internal Medicine | DX: Z12.31 Encounter for screening mammogram for malignant neoplasm of breast (principal) | CPT/HCPCS: 77063; 77067 ==

== ENCOUNTER 2024-08-08 09:34 | Outpatient (AMB) | payer MEDICARE, OTHER, SELFPAY ==
--- NOTE | 2024-08-08 09:36 | MHC.OFFVIS ---
Intake Visit Reasons: 1m/PVR Intake Note: Patient presents today for a follow-up on: OAB, incontinence, and medication follow up Med: Gemtesa Allergies to Antibiotic- No Known Allergies Blood Thinner- None Post Void Residual: 0ml's Cone Tender Required: No Accompanied by: Self / Same As Patient Allergies citalopram (Celexa) Adverse Reaction (Unknown, Verified 08/08/24 10:13) sleepiness paroxetine (Paxil) Adverse Reaction (Unknown, Verified 08/08/24 10:13) sleepiness Medication List - Last Reconciled 08/08/24 by CHARLIE Aguilar- albuterol sulfate 90 mcg/actuation 2 puffs inhalation Q6H PRN bupropion HCl XL 150 mg PO DAILY cholecalciferol (vitamin D3) 125 mcg PO DAILY glucosamine HCl 500 mg PO DAILY multivitamin 1 tab PO DAILY pantoprazole 40 mg PO BID psyllium seed (sugar) (Metamucil (sugar) oral powder) 1 tbsp PO BID simvastatin 1 tab PO DAILY valsartan (Diovan) 320 mg PO DAILY vibegron (Gemtesa) 75 mg PO DAILY 30 days vitamin E 200 units PO DAILY HPI Comments Details: Imelda is a pleasant 83-year-old female patient of . She has a past medical history of chronic kidney disease stage 3, COPD, hypertension, benign positional vertigo, PVCs, fatty liver, GERD, depression, rectal prolapse, and hemorrhoids. She presents to the office today for follow-up of her urinary incontinence and overactive bladder. In discussion with the patient today she reports to be doing and feeling well. She discusses having recently started Gemtesa as prescribed during last office visit however there was issues with insurance coverage and therefore she has only started the medication within the last 2 weeks. She does feel symptoms have somewhat improved however she also has been attempting to minimize coffee consumption so she is unsure as if this is related to avoiding bladder triggers and irritants or the medication. In office urinalysis results reviewed with the patient today. PVR 0 mLs. She has previously trialed Myrbetriq, tolterodine, oxybutynin, and VESIcare without improvement in lower urinary tract symptoms. We did discussed the importance of continuing to avoid bladder triggers and irritants. She otherwise denies hematuria, dysuria, foul-smelling urine, flank pain, fever, and or chills. We discussed possible near future in office cystoscopy and or urodynamics if symptoms persist. She otherwise offers no other issues or concerns at this time. [facility] Medical History Pre-op examination Weight loss Abnormal CT scan Urinary incontinence CKD (chronic kidney disease), stage III COPD (chronic obstructive pulmonary disease) HTN (hypertension) BPV (benign positional vertigo) PVC (premature ventricular contraction) Apical lung nodule Fatty liver GERD (gastroesophageal reflux disease) Depression Rectal prolapse Internal and external prolapsed hemorrhoids Surgical History History of esophagogastroduodenoscopy (EGD) History of colonoscopy History of hernia surgery History of partial hysterectomy History of appendectomy Family History Mother Lung cancer Sister Lung cancer Social History Household Members Other:: lives with brother Are you a primary healthcare administrative assistant to a significant other at home: No Alcohol intake: current Alcohol intake frequency: holidays/special occasions only Alcohol type: beer Comment: PCP aware of falls Patient Tobacco Use Status: Former Tobacco user Tobacco use type: Cigarette Years Smoked: 50 Review of Systems Const All systems reviewed & are unremarkable except as noted in HPI and below Physical Exam Const General: cooperative, healthy appearing, comfortable, no acute distress, well developed, alert and awake Nutritional Appearance: thin Orientation/consciousness: patient oriented x3 Limitations: no limitations HEENT Head: Yes normal to inspection, Yes normocephalic and Yes atraumatic Ears: hearing grossly normal bilaterally Eyes General: appearance normal, both eyes and all related structures Neck Neck: Yes normal visual inspection and Yes trachea midline Chest Chest palpation & inspection: normal inspection of the chest Resp Effort & Inspection: normal respiratory effort and able to speak in complete sentences Cardio Rate: regular rate GI Inspection: Yes normal to inspection General: Yes no CVA tenderness Back/Spine/Pelvis Back: no CVA tenderness Skin General skin exam: no rashes or lesions noted Neuro General: patient oriented x3 Extrem General: Yes normal to inspection Psych Appearance: grossly normal and well kempt Mental Status: mental status grossly normal Speech and movement: Normal speech and movement present and Clear speech present Affect: normal affect Attitude: cooperative Thought process: Normal thought process present Thought content: Normal thought content present Insight: Fair insight present (Psych) Judgement: Fair judgement present (Psych) Office Procedures Post Void Residual Post Residual Void Post Void Residual (PVR): 0 22765-[id number] Void Residual by ultrasound Results AMB Urinalysis, Automated UA Leukoctes 0 Adelaida/uL Last Edit by Koki Tapia [facility] on 08/08/24 10:09 UA Nitrite [facility] on 08/08/24 10:09 UA Urobilinogen 0.2 mg/dL [facility] on 08/08/24 10:09 UA Protein 0 mg/dL Last Edit by [facility] on 08/08/24 10:09 UA pH 6.0 Last Edit by [facility] Sandy, [facility] on 08/08/24 10:09 UA Blood 0 Javier/uL Last Edit by [facility], [facility] on 08/08/24 10:09 UA Specific Pine Level 1.010 Last Edit by [facility] Sandy, [facility] on 08/08/24 10:09 UA Ketone Last Edit by [facility], [facility] on 08/08/24 10:09 UA Bilirubin 0 mg/dL Last Edit by [facility] Sandy, [facility] on 08/08/24 10:09 UA Glucose 0 mg/dL Last Edit by [facility], [facility] on 08/08/24 10:09 Results Reviewed Results Reviewed: Laboratory Last Values Urine pH (Auto) 6.0 08/08/24 09:52 Specific Pine Level (Auto) 1.010 08/08/24 09:52 Urine Protein (Auto) 0 mg/dL 08/08/24 09:52 Glucose (UA)(Auto) 0 mg/dL 08/08/24 09:52 Urine Blood (Auto) 0 Javier/uL 08/08/24 09:52 Urine Bilirubin (Auto) 0 mg/dL 08/08/24 09:52 Urine Urobilinogen (Auto) 0.2 mg/dL 08/08/24 09:52 Leukocyte Esterase (Auto) 0 Adelaida/uL 08/08/24 09:52 Assessment & Plan Assessment & Plan (1) Overactive bladder: Code(s): N32.81 - Overactive bladder Category: Medical Plan In office urinalysis results reviewed with the patient today; as noted above. PVR 0 mL. Continue Gemtesa as discussed and prescribed. Will reassess in 6 weeks as patient recently started Gemtesa. We discussed potential for near future in office urodynamics for further assessment evaluation. We discussed bladder triggers/irritants at length Follow-up in 6 weeks; or sooner with any issues, concerns, and or questions. Orders: Orders AMB Urinalysis Automated Today Z13.9 - Encounter for screening, unspecified AMB Post Void Residual by ultrasound Today N32.81 - Overactive bladder Patient Instructions: The patient had an opportunity to ask questions regarding the treatment plan. All questions were answered. Physical exam, labs, and imaging were discussed and reviewed in detail. As well as risks, benefits, and discussion of treatment choices. No major barriers to understanding were identified. The patient expressed understanding and agreement with the above treatment plan. The patient was made aware they should contact our office by phone for worsening of their current condition, the appearance of new symptoms, or with any questions or concerns. Compliance is encouraged with any medications and follow up testing that is ordered. It is a privilege to be allowed the opportunity to participate in? your urological care.? Again, if you have any questions or concerns If you have any questions or concerns please do not hesitate to contact me. The office is [phone]. This note is constructed using voice recognition software. While every effort has been made to ensure accuracy tone cabinet assembler errors may have been included. Yours sincerely, FRANKY Aguilar Coding Level of Care Code Est Pt Level 3 (91922) Diagnoses Overactive bladder N32.81 CPT Codes Post Residual Void - PVR CPT Code: 76632-Teds Void Residual by ultrasound ([id number])
--- OUTSIDE RECORDS SUMMARY | 2024-08-08 09:51 | XMS_ITS | Clinical Summary ---
Author Organization [facility] ity Address [address] [place] [address] Care Team Providers Care Manager Medicare Marketing Name Role Phone Unavailable Primary Care Provider [...]
== END 2024-08-08 10:29 | disposition home or self-care (01) ==
LOC: HO.HUSH 09:34
PROVIDERS: PCP Family Medicine; Visit Provider Nurse Practitioner Family
DX: Z13.9 Encounter for screening, unspecified (principal); N32.81 Overactive bladder
CPT/HCPCS: 99213

== ENCOUNTER → 2024-08-08 09:34 | Outpatient (BNVA) | payer MEDICARE, OTHER, SELFPAY | PROVIDERS: PCP Family Medicine; Visit Provider Nurse Practitioner Family | DX: N32.81 Overactive bladder (principal) | CPT/HCPCS: 51798; 81003; 99212 ==

== ENCOUNTER 2024-09-11 16:20 | Outpatient (AMB) | payer MEDICARE, OTHER, SELFPAY ==
--- NOTE | 2024-09-11 16:22 | A.OFFVIS_ITS ---
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 Required: No Allergies citalopram (Celexa) Adverse Reaction (Unknown, Verified 09/11/24 16:38) sleepiness paroxetine (Paxil) Adverse Reaction (Unknown, Verified 09/11/24 16:38) sleepiness Medication List - Last Reconciled 09/11/24 by Belinda Garcia [facility]- albuterol sulfate 90 mcg/actuation 2 puffs inhalation Q6H bupropion HCl XL 150 mg PO DAILY cholecalciferol (vitamin D3) 125 mcg PO DAILY glucosamine HCl 500 mg PO DAILY multivitamin 1 tab PO DAILY pantoprazole 40 mg PO BID 90 days psyllium seed (sugar) (Metamucil (sugar) oral powder) 1 tbsp PO BID simvastatin 1 tab PO DAILY valsartan (Diovan) 320 mg PO DAILY vibegron (Gemtesa) 75 mg PO DAILY 90 days vitamin E 200 units PO DAILY HPI Comments Details: Imelda is a pleasant 83-year-old female patient of . She has a past medical history of chronic kidney disease stage 3, COPD, hypertension, benign positional vertigo, PVCs, fatty liver, GERD, depression, rectal prolapse, and hemorrhoids. She is being followed up on today via telehealth for her urinary incontinence and overactive bladder. In discussion with the patient today she does feel Gemtesa has been helpful in relieving her lower urinary tract symptoms however she does discuss increase in co-payment. She reports feeling Myrbetriq and Gemtesa work relatively the same for her lower urinary tract symptoms. She does continue to report episodes of urinary frequency however does not find these bothersome as she feels they are manageable. She has significantly decreased her caffeine consumption to 2 cups per day as she had previously had been having 2-3 pots of coffee per day. We did discussed further workup and interventions to include in office urodynamics as patient with previously trialed Myrbetriq, tolterodine, oxybutynin, and VESIcare without improvement in her lower urinary tract symptoms. She denies hematuria, dysuria, foul-smelling urine, flank pain, fever, and or chills. We discussed possible near future in office cystoscopy and or urodynamics if symptoms persist. She discusses her upcoming appointment with her new PCP. She otherwise offers no oth er issues or concerns at this time. [facility] Medical History Pre-op examination Weight loss Abnormal CT scan Urinary incontinence CKD (chronic kidney disease), stage III COPD (chronic obstructive pulmonary disease) HTN (hypertension) BPV (benign positional vertigo) PVC (premature ventricular contraction) Apical lung nodule Fatty liver GERD (gastroesophageal reflux disease) Depression Rectal prolapse Internal and external prolapsed hemorrhoids Surgical History History of esophagogastroduodenoscopy (EGD) History of colonoscopy History of hernia surgery History of partial hysterectomy History of appendectomy Family History Mother Lung cancer Sister Lung cancer Social History Household Members Other:: lives with brother Are you a primary resident caregiver to a significant other at home: No Alcohol intake: current Alcohol intake frequency: holidays/special occasions only Alcohol type: beer Comment: PCP aware of falls Patient Tobacco Use Status: Former Tobacco user Tobacco use type: Cigarette Years Smoked: 50 Review of Systems Const All systems reviewed & are unremarkable except as noted in HPI and below Physical Exam Const General: cooperative Orientation/consciousness: patient oriented x3 Resp Effort & Inspection: able to speak in complete sentences Neuro General: patient oriented x3 Psych Speech and movement: Clear speech present Affect: normal affect Attitude: cooperative Thought process: Normal thought process present Thought content: Normal thought content present Insight: Fair insight present (Psych) Judgement: Fair judgement present (Psych) Telehealth Telehealth Telehealth Platform: Telephone Location of provider rendering services: practice address Location of patient: address on file Patient Identification confirmed using: Name, : Yes Telehealth method: voice only Patient verbally consented to treatment: Yes Patient verbally consented to billing insurance company: Yes Patient informed of any privacy concerns related to visit: Yes Minutes spent on Phone/Video with Pt.: 15 Assessment & Plan Assessment & Plan (1) Urinary incontinence: Code(s): R32 - Unspecified urinary incontinence Category: Medical (2) Overactive bladder: Code(s): N32.81 - Overactive bladder Category: Medical Plan Continue Gemtesa; refill provided We did discussed further treatment options to include in office urodynamics and or cystoscopy for further assessment evaluation. She feels lower urinary tract symptoms are manageable and will continue with Gemtesa at this time. All questions were answered. Continue to avoid bladder triggers and irritants. Follow-up in 6 months with [facility]; or sooner with any issues, concerns, and or questions. Medications: Changed From vibegron (Gemtesa) 75 mg PO DAILY 30 days 30 tabs 3RF N32.81 - Overactive bladder To vibegron (Gemtesa) 75 mg PO DAILY 90 tabs 2RF 90 days N32.81 - Overactive bladder Patient Instructions: The patient had an opportunity to ask questions regarding the treatment plan. All questions were answered. Physical exam, labs, and imaging were discussed and reviewed in detail. As well as risks, benefits, and discussion of treatment choices. No major barriers to understanding were identified. The patient expressed understanding and agreement with the above treatment plan. The patient was made aware they should contact our office by phone for worsening of their current condition, the appearance of new symptoms, or with any questions or concerns. Compliance is encouraged with any medications and follow up testing that is ordered. It is a privilege to be allowed the opportunity to participate in? your urological care.? Again, if you have any questions or concerns If you have any questions or concerns please do not hesitate to contact me. The office is [phone]. This note is constructed using voice recognition software. While every effort has been made to ensure accuracy jewel hole driller errors may have been included. Yours sincerely, FRANKY Aguilar Coding Level of Care Code Tele Est Pt Level 3 (46968) Diagnoses Urinary incontinence R32 Overactive bladder N32.81
== END 2024-09-11 16:39 | disposition home or self-care (01) ==
LOC: HO.HUSH 16:20
PROVIDERS: PCP Family Medicine; Visit Provider Nurse Practitioner Family
DX: R32 Unspecified urinary incontinence (principal); N32.81 Overactive bladder
CPT/HCPCS: 99213

== ENCOUNTER 2024-09-26 09:28 | Outpatient (AMB) | payer MEDICARE, OTHER, SELFPAY ==
--- NOTE | 2024-09-26 09:55 | A.OFFVIS_ITS ---
Intake Visit Reasons: VISUAL HALLUCINATIONS Allergies citalopram (Celexa) Adverse Reaction (Unknown, Verified 09/11/24 16:38) sleepiness paroxetine (Paxil) Adverse Reaction (Unknown, Verified 09/11/24 16:38) sleepiness Medication List - Last Reconciled 09/26/24 by Joe Curry MD albuterol sulfate 90 mcg/actuation 2 puffs inhalation Q6H bupropion HCl XL 150 mg PO DAILY cholecalciferol (vitamin D3) 125 mcg PO DAILY glucosamine HCl 500 mg PO DAILY multivitamin 1 tab PO DAILY pantoprazole 40 mg PO BID 90 days simvastatin 1 tab PO DAILY valsartan (Diovan) 320 mg PO DAILY vibegron (Gemtesa) 75 mg PO DAILY 90 days vitamin E 200 units PO DAILY HPI Comments Details: This is a 83-year-old right-handed woman with a history of high blood pressure hyperlipidemia and GERD who comes in for evaluation of visual hallucinations that started around February of 2024 when she started seeing people with kids and adults entering the door. They would not be talking. This evolved in March into seeing black spiders and bats floating around and most recently she has been seeing water coming out of the ceiling in the carbajal along with people. They seem very real. She has these visual hallucinations on a daily basis. She has not had an eye exam done but in general her vision is okay. She lives with her brother and has been for 27 years. She has 3 sons in [place] and 1 son locally. She has also noted some difficulty with short-term memory and some confusion about how to do certain things within the last month. She occasionally gets lightheaded if she gets up quick. She has had a few falls within the last year and hit her head [facility] Medical History (Updated 09/26/24 @ 10:03 by Joe Curry MD) Visual hallucinations Pre-op examination Weight loss Abnormal CT scan Urinary incontinence CKD (chronic kidney disease), stage III COPD (chronic obstructive pulmonary disease) HTN (hypertension) BPV (benign positional vertigo) PVC (premature ventricular contraction) Apical lung nodule Fatty liver GERD (gastroesophageal reflux disease) Depression Rectal prolapse Internal and external prolapsed hemorrhoids Surgical History (Reviewed 08/08/24 @ 09:51 by Koki Tapia [facility]) History of esophagogastroduodenoscopy (EGD) History of colonoscopy History of hernia surgery History of partial hysterectomy History of appendectomy Family History Mother Lung cancer Sister Lung cancer Social History Household Members Other:: lives with brother Are you a primary youth care worker to a significant other at home: No Alcohol intake: current Alcohol intake frequency: holidays/special occasions only Alcohol type: beer Comment: PCP aware of falls Patient Tobacco Use Status: Former Tobacco user Tobacco use type: Cigarette Years Smoked: 50 Review of Systems Const Details: Sleep Difficulty getting to sleep?denies.?Difficulty maintaining sleep?denies?.?Urge to move legs?denies.?Teeth grinding?denies.?Shouting or Kicking during sleep ?denies.?Abnormal behavior during sleep?denies.?Excessive sleep?denies.?Snoring ?denies.?Daytime sleepiness?denies. ? General/Constitutional Change in appetite?denies.?Chills?denies.?Fatigue?denies.?Fever?denies.?Weight gain?denies.?Weight loss?denies. ? Ophthalmologic Blurred vision?denies.?Diminished visual acuity?denies. ? ENT Stuffiness?denies.?Decreased hearing?denies.?Dry mouth?denies.?Ear pain ?denies.?Nosebleed?denies.?Ringing in the ears?denies.?Sinus pain?denies.?Sore throat?denies.?Swollen glands?denies. ? Endocrine Cold intolerance?denies.?Excessive thirst?denies.?Frequent urination?denies.? Heat intolerance?denies. ? Respiratory Shortness of breath?denies.?Chest pain?denies.?Cough?denies. ? Breast Breast lump?denies.?Nipple discharge?denies. ? Cardiovascular Chest pain at rest?denies.?Chest pain with exertion?denies.?Claudication ?denies.?Dizziness?denies.?Fluid accumulation in the legs?denies.?Irregular heartbeat?denies.?Palpitations?denies. ? Gastrointestinal Abdominal pain?denies.?Constipation?denies.?Diarrhea?denies.?Difficulty swallowing?denies.?Heartburn?denies.?Nausea?denies.?Rectal bleeding?denies. ? Hematology Easy bruising?denies.?Prolonged bleeding?denies. ? Genitourinary Frequent urination?denies.?Urgency?denies.?Incontinence?denies.?Erectile Dysfunction?denies. ? Musculoskeletal Neck pain?denies.?Back pain?denies.?Muscle aches?denies.?Painful joints ?denies.?Sciatica?denies.?Weakness?denies. ? Podiatric Difficulty walking?denies.?Foot numbness?denies. ? Neurologic Difficulty swallowing?denies.?Balance difficulty?denies.?Coordination?normal.? Difficulty speaking?denies.?Dizziness?yes.?Fainting?denies.?Gait abnormality ?denies.?Headache?denies.?Loss of strength?denies.?Loss of use of extremity ?denies.?Low back pain?denies.?Memory loss?denies.?Seizures?denies.?Tics ?denies.?Tingling/Numbness?denies.?Transient loss of vision?denies.?Tremor ?denies. ? Psychiatric Anxiety?denies.?Auditory/visual hallucinations?visual hallucinations.?Delusions ?denies.?Depressed mood?denies.?Stressors?denies.?Substance abuse?denies.? Suicidal thoughts?denies. Physical Exam Neuro Other: Neurological Abnormal neurological findings:??none.? Mental Status:?alert and oriented X 3,?Normal attention, orientation, memory and affect.? Cranial Nerves:?Pupils are equal, round and reactive to light. Fundoscopy shows normal disc bilaterally. External occular muscles are intact. Visual banks are full, no ptosis. Face is symmetrical, no facial weakness or droop. Facial sensations are normal. Tongue protrudes in midline. Palate elevates symmetri justin. Shoulder shrugging is normal..? Motor Examination:?Normal muscle tone, bulk and strength,?No atrophy or fasciculations,?No drift of the extended upper extremities,?Deep tendon reflexes are 2+?,?Plantars are flexor?.? Motor Strength:?Proximal Muscles (out of 5):5Distal Muscles (out of 5):5Neck F lexors (out of 5):5Neck Extensors (out of 5):5Deltoid (out of 5):5Biceps (out of 5):5Triceps (out of 5):5Serratus Anterior (out of 5):5Wrist Extensors (out of 5):5APB (out of 5):5Finger Spread (out of 5):5Ileopsoas (out of 5):5Quadriceps (out of 5):5Hamstrings (out of 5):5Tibialis Anterior (out of 5):5Peronei (out of 5):5EDB (out of 5):5Gastrocnemius (out of 5):5Straight Leg Raising:?90 degrees.? Sensory Exam:?Normal light touch, temperature, pinprick, vibration and joint- position sensations?,?Rhomberg sign is absent.? Coordination:?no ataxia,?no titubation,?[id number], mpap-ottr-[id number] test and rapid alternating movements were normal.? Gait Exam:?Within normal limits.? Cerebellar Signs:?Xdxcea-od-[id number] and oifd-cq-[id number] is normal,?no dysdiadochokinesia?.? Extrapyramidal System:?No tremor, rigidity with normal facial expressions,?No bradykinesia, no bradyphrenia. Normal arm swing and posture. No propulsion or retropulsion.? Speech:?Normal,?no dysphasia or dysarthria..? Mini Mental Status Exam Level of Consciousness:?Alert.? Orientation:?Knows correct year, month, date, day and season,?Knows correct city, county and state. Knows correct location and floor.? Registration:?Able to register 3 objects.? Attention:?Serial 7's performed accurately.? Recall:?Able to recall 3 out of 3 objects.? Language:?Normal spontaneous speech, fluency, repetition,naming, comprehension, reading and writing.? Total Score:?30/30.? General Examination GENERAL APPEARANCE:?normal,?in no acute distress.? HEAD:?normocephalic,?atraumatic.? EYES:?sclera non-icteric,?conjunctiva clear.? EARS:?auditory canal clear,?tympanic membrane intact, clear.? NOSE:?no lesions.? ORAL CAVITY:?gums normal,?mucosa moist,?no lesions.? THROAT:?clear.? NECK/THYROID:?no cervical lymphadenopathy,?thyroid normal,?neck supple, full range of motion,?no carotid bruit.? SKIN:?no rashes,?no significant birthmarks.? HEART:?S1, S2 normal,?no murmurs.? LUNGS:?clear anteriorly and posteriorly.? CHEST:?no gross rib deformity,?clear to auscultation.? BACK:?normal exam of spine.? EXTREMITIES:?no edema.? PERIPHERAL PULSES:?normal.? PSYCH:?alert, oriented,?cognitive function intact,?cooperative with exam.? 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
--- OUTSIDE RECORDS SUMMARY | 2024-09-26 10:13 | XMS_ITS | Clinical Summary ---
Author Organization [facility] ity Address [address] [place] [address] Care Team Providers Care Organisational Psychologist Name Role Phone Unavailable Primary Care Provider [...] Vaccine (1 - 2023-2 5 season) 2023 Depression Screening 02/08/2024 Influenza Vaccine (#1) 2024 HIB Vaccines Aged Out No longer [...]
== END 2024-09-26 10:24 | disposition home or self-care (01) ==
LOC: HO.HSM 09:29
PROVIDERS: PCP Family Medicine; Referring Provider Family Medicine; Visit Provider Psychiatry & Neurology Neurology
DX: R44.1 Visual hallucinations (principal); G31.83 Neurocognitive disorder with Lewy bodies; F02.80 Dementia in other diseases classified elsewhere, unspecified severity, without behavioral disturbance, psychotic disturbance, mood disturbance, and anxiety; R32 Unspecified urinary incontinence
CPT/HCPCS: 99204

== ENCOUNTER → 2024-09-26 09:28 | Outpatient (BNVA) | payer MEDICARE, OTHER, SELFPAY | PROVIDERS: PCP Family Medicine; Referring Provider Family Medicine; Visit Provider Psychiatry & Neurology Neurology | DX: G31.83 Neurocognitive disorder with Lewy bodies (principal); F02.80 Dementia in other diseases classified elsewhere, unspecified severity, without behavioral disturbance, psychotic disturbance, mood disturbance, and anxiety; R44.1 Visual hallucinations; R32 Unspecified urinary incontinence | CPT/HCPCS: 99202 ==

== ENCOUNTER 2024-10-05 10:00 | Outpatient (REF) | payer MEDICARE, OTHER, SELFPAY ==
--- NOTE | 2024-10-05 10:05 | EEG_ITS ---
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 Photic stimulation produces prominent photic driving responses from the posterior quadrants. Hyperventilation was omitted. Impression: This EEG is considered mildly abnormal due to low-voltage EEG with some scattered generalized slowing consistent with mild diffuse cerebral dysfunction MTDD
--- OUTSIDE RECORDS SUMMARY | 2024-10-05 10:45 | XMS_ITS | Clinical Summary ---
Author Organization [facility] ity Address [address] [place] [address] Care Team Providers Care Speech Correction Consultant Name Role Phone Unavailable Primary Care Provider [...]
== END 2024-10-05 10:01 | disposition home or self-care (01) ==
LOC: HO.NEURO 10:00
PROVIDERS: Visit Provider Psychiatry & Neurology Neurology
DX: R44.1 Visual hallucinations (principal); G31.83 Neurocognitive disorder with Lewy bodies; F02.80 Dementia in other diseases classified elsewhere, unspecified severity, without behavioral disturbance, psychotic disturbance, mood disturbance, and anxiety; R94.01 Abnormal electroencephalogram [EEG]
CPT/HCPCS: 95816

== ENCOUNTER → 2024-10-05 10:05 | Outpatient (BNV) | payer MEDICARE, OTHER, SELFPAY | PROVIDERS: Visit Provider Psychiatry & Neurology Neurology | DX: R44.1 Visual hallucinations (principal) | CPT/HCPCS: 95816 ==

== ENCOUNTER 2024-10-17 09:30 | Outpatient (REF) | payer MEDICARE, OTHER, SELFPAY ==
--- NOTE | ~2024-10-17 | MR_ITS ---
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 No intra-axial mass or hemorrhage. There are minimal T2 and FLAIR hyperintensities in the subcortical and periventricular white matter consistent with minimal chronic small-vessel ischemic gliosis. Minimal cerebral atrophy, appropriate for patient's age. No midline shift. No hydrocephalus. Vascular flow voids are intact. Orbital contents are unremarkable. The sinuses and mastoid air cells are clear. No focal bone lesion. IMPRESSION: No acute findings. Minimal chronic small-vessel ischemic gliosis. Mild minimal cerebral atrophy. This document has been electronically signed by: Deepak Clemente MD on 10/18/2024 03:02:16
--- OUTSIDE RECORDS SUMMARY | 2024-10-17 11:24 | XMS_ITS | Clinical Summary ---
Author Organization [facility] ity Address [address] [place] [address] Care Team Providers Care Credit Specialist Name Role Phone Unavailable Primary Care [...]
== END 2024-10-17 09:31 | disposition home or self-care (01) ==
LOC: HO.MRI 09:30
PROVIDERS: Visit Provider Psychiatry & Neurology Neurology
DX: R44.1 Visual hallucinations (principal); G31.83 Neurocognitive disorder with Lewy bodies; F02.80 Dementia in other diseases classified elsewhere, unspecified severity, without behavioral disturbance, psychotic disturbance, mood disturbance, and anxiety
CPT/HCPCS: 70551

== ENCOUNTER → 2024-10-17 09:40 | Outpatient (BNV) | payer MEDICARE, OTHER, SELFPAY | PROVIDERS: Visit Provider Radiology Diagnostic Radiology | DX: G31.83 Neurocognitive disorder with Lewy bodies (principal) | CPT/HCPCS: 70551 ==

== ENCOUNTER 2024-10-23 10:02 | Outpatient (REF) | payer MEDICARE, OTHER, SELFPAY ==
[2024-10-23 11:34] LABS: MANUAL DIFF FLAG NO
[2024-10-23 12:02] LABS: Hematocrit 34.6 % (37.0-47.0); Hemoglobin 11.1 g/dl (12.0-16.0); Imm Gran Abs Auto 0.01 X10*3/uL (0.00-0.03); Imm Gran Pct Auto 0.2 % (0.0-0.4); Lymphocytes Absolute Auto 1.3 X10*3/uL (1.2-4.9); Mean Corpuscular HGB Conc 32.1 g/dl (31.0-35.0); Mean Corpuscular Hemoglobin 28.2 pg (27.0-33.0); Mean Corpuscular Volume 87.8 fL (80.0-98.0); NRBC Abs Auto 0.000 X10*3/uL (0.0-0.012); NRBC Pct Auto 0.0 /100WBC (0.0-0.2); Platelet Count 206 X10*3/uL (160-400); Red Blood Count 3.94 X10*6/uL (4.20-5.50); White Blood Count 5.1 X10*3/uL (4.8-10.8)
[2024-10-23 12:46] LABS: Alanine Aminotransferase 10 U/L (0-31); Albumin Level 4.5 g/dL (3.5-5.0); Alkaline Phosphatase 89 U/L (39-117); Anion Gap 11 (12-20); Aspartate Amino Transferase 27 U/L (5-31); Blood Urea Nitrogen 33 mg/dL (9-16); Calcium 10.3 mg/dL (8.4-10.2); Carbon Dioxide 25 mmol/L (22-29); Chloride 111 mmol/L (96-108); Cholesterol 231 mg/dL (<200); Estimated Glomerular Filt Rate 30; HDL Cholesterol 81 mg/dL (>40); Iron 56 mcg/dL (30-160); Percent Iron Saturation 18 % (15-50); Potassium 4.7 mmol/L (3.3-5.1); Sodium 142 mmol/L (135-145); Total Iron Binding Capacity 319 mcg/dL (228-428); Total Protein 7.1 g/dL (6.5-8.0); Triglycerides 84 mg/dL (<150); Unsaturated Iron Binding 263 ug/dL
== END 2024-10-23 10:03 | disposition home or self-care (01) ==
LOC: HO.LAB 10:02
PROVIDERS: PCP Physician Assistant; Visit Provider Physician Assistant
DX: I12.9 Hypertensive chronic kidney disease with stage 1 through stage 4 chronic kidney disease, or unspecified chronic kidney disease (principal); N18.30 Chronic kidney disease, stage 3 unspecified; J44.9 Chronic obstructive pulmonary disease, unspecified; K22.10 Ulcer of esophagus without bleeding; G31.83 Neurocognitive disorder with Lewy bodies; F02.80 Dementia in other diseases classified elsewhere, unspecified severity, without behavioral disturbance, psychotic disturbance, mood disturbance, and anxiety; E46 Unspecified protein-calorie malnutrition
CPT/HCPCS: 36415; 80048; 80061; 80076; 82306; 83540; 85025; 99202

== ENCOUNTER 2024-10-23 10:02 | Outpatient (AMB) | payer MEDICARE, OTHER, SELFPAY ==
--- NOTE | 2024-10-23 10:22 | MHC.PC.OV ---
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 Required: No Accompanied by: Self / Same As Patient Allergies citalopram (Celexa) Adverse Reaction (Unknown, Verified 10/23/24 10:22) sleepiness paroxetine (Paxil) Adverse Reaction (Unknown, Verified 10/23/24 10:22) sleepiness Tobacco use date assessed: 10/23/24 Fall risk assessment: No Falls in past year Last assessed Fall Risk: 10/23/24 Dental Screening Dental Screen Date: 10/23/24 Did you have a dental visit in the last 12 months?: Yes Did you have a dental problem in the last 6 months where you did not have access to dental care?: No Was dental information given to patient?: No HPI HPI Comments History of Present Illness Details 84 year old female with history of urinary incontinence, hypertension, Lewy body dementia with hallucinations, rectal prolapse, GERD/erosive esophagitis, depression/anxiety presenting to the office today for management of chronic conditions as well as to establish care. Rectal prolapse- opted against surgery due to risks. Managed at this time. BMs normal/regular. No bleeding. No longer following with general surgery Poor diet- eating mostly junk food . Difficulty eating due to dentures. Plans to puree food. Poor fitting dentures. Lewy Disease- still with VH. Seeing adults or kids walking towards her house or walks in. Also spiders, bats, and bugs flying towards her face that would then stop in front of her face. Water coming from ceiling or carbajal. She is able to acknowledge they are not real, but are bothersome. Hallucinations occur daily. Following with Dr. Curry. Taking seroquel 25mg bid. Depression/anxiety- ongoing anxiety r/t VH above. On wellbutrin and seroquel Erosive esophagitis/GERD- On pantoprazole 40mg BID. Occ substernal pain/spasm. Cardiac work up unremarkable by prior PCP HTN- BP in office 120/62. On valsartan 320 mg daily Hyperlipidemia-simvastatin COPD- overall controlled. No maintenance inhalers. Rare albuterol use. Former smoker- quit smoking 23 years ago Concerns: None Health Maintenance: Last colonoscopy 12/31 with prn follow up ROS: see hpi EXAM: Constitutional - Awake and Alert, No apparent distress Eyes - PERRL Cardiovascular - S1S2, RRR, No edema Respiratory - Normal lung expansion, Normal respiratory effort, No respiratory distress, CTA bilaterally Extremities - no calf tenderness bilaterally, no swelling Skin - Warm/Dry Neurological - Alert & oriented x3 Psychological - Appropriate affect [facility] Medical History (Updated 10/23/24 @ 11:06 by BEAN Steven) Protein calorie malnutrition CKD (chronic kidney disease), stage III COPD (chronic obstructive pulmonary disease) Visual hallucinations Pre-op examination Weight loss Abnormal CT scan Urinary incontinence HTN (hypertension) BPV (benign positional vertigo) PVC (premature ventricular contraction) Apical lung nodule Fatty liver GERD (gastroesophageal reflux disease) Depression Rectal prolapse Internal and external prolapsed hemorrhoids Surgical History History of esophagogastroduodenoscopy (EGD) History of colonoscopy (~12/23/23) History of hernia surgery History of partial hysterectomy History of appendectomy Family History Mother Lung cancer Sister Lung cancer Social History Household Members Other:: lives with brother Housing: Apartment Are you a primary health care consultant to a significant other at home: No Alcohol intake: current Alcohol intake frequency: holidays/special occasions only Alcohol type: beer Comment: PCP aware of falls Patient Tobacco Use Status: Former Tobacco user Tobacco use type: Cigarette Years Smoked: 50 e-Cigarette/Vaping Use: Never Used service: No Current occupational status: retired Cognitive needs: No Hearing needs: No Vision needs: Yes (Reading glasses) Questionnaire PHQ-9 Over the last 2 weeks, how often have you been bothered by any of the following problems? 1. Little interest or pleasure in doing things: several days 2. Feeling down, depressed, or hopeless: several days 3. Trouble falling or staying asleep, or sleeping too much: more than half the days 4. Feeling tired or having little energy: nearly every day 5. Poor appetite or overeating: nearly every day 6. Feeling bad about yourself - or that you are a failure or have let yourself or your family down: nearly every day 7. Trouble concentrating on things, such as reading the newspaper or watching television: nearly every day 8. Moving or speaking so slowly that other people could have noticed. Or the opposite - being so fidgety or restless that you have been moving around a lot more than usual: several days 9. Thoughts that you would be better off or of hurting yourself in some way: not at all Total score: 17 Source: Developed by Drs. Quintin Morton, Lois Bah, Bello Rojas and colleagues, with an educational mey from [employer]. Thrive Questionnaire Date Thrive assessed: 10/23/24 I am a: Patient What is your living situation today?: I have a steady place to live Within the past 12 months, did the food you bought not last and you didn't have the money to get more?: Never true Within the past 12 months, did you worry whether your food would run out before you got money to buy more?: Never true Do you have trouble paying for medicines?: No Do you have trouble getting transportation to medical appointments?: No Do you have trouble paying your heating and electricity bill?: No Do you have trouble taking care of your child, family member or friend?: No Do you have trouble with day-to-day activities such as bathing, preparing meals, shopping, managing finances, etc.?: No Are you currently unemployed and looking for a job?: No Are you interested in more education?: No Please select the resources that you would like help with: None THRIVE Score: 0 TIGIST-7 AMB Questionnaire TIGIST-7 Date TIGIST - 7 assessed: 10/23/24 Feeling nervous, anxious, or on edge: 3 = Nearly every day Not being able to stop or control worryin = Not at all Worrying too much about different things: 0 = Not at all Trouble relaxin = Not at all Being so restless that it is hard to sit still: 0 = Not at all Becoming easily annoyed or irritable: 1 = Several days Feeling afraid as if something awful might happen: 3 = Nearly every day Total TIGIST-7 score (0-4 normal; 5-9 mild; 10-14 moderate; 15-21 severe): 7 Source: Developed by Drs. Quintin Morton, Lois Bah, Bello Rojas and colleagues, with an educational mey from [employer]. Physical exam (Primary Care) Vital Signs: Last Vital Signs Temp 97.7 F 10/23/24 10:29 Pulse 83 10/23/24 10:29 Resp 16 10/23/24 10:29 BP 120/62 10/23/24 10:29 Pulse Ox 99 10/23/24 10:29 Oxygen Delivery Method Room Air 10/23/24 10:29 BMI result Body Mass Index 17.8 Tobacco/Smoking Status: Tobacco use Status Tobacco use date assessed 10/23/24 10/23/24 10:32 Patient Tobacco Use Status Former Tobacco user 10/23/24 10:24 Tobacco use type Cigarette 10/23/24 10:24 e-Cigarette/Vaping Use Never Used 10/23/24 10:32 PHQ-9: PHQ-9 Score PHQ-9: Total score 17 10/23/24 10:57 Thrive Assessment: Date of Thrive Assessment Date Thrive assessed 10/23/24 10/23/24 10:32 Coding Level of Care Code New Pt Level 4 (94574) Complex EM visit Add On G2211 Diagnoses HTN (hypertension) I10 COPD (chronic obstructive pulmonary disease) J44.9 CKD (chronic kidney disease), stage III N18.30 Erosive esophagitis K22.10 Lewy body disease G31.83; F02.80 Protein calorie malnutrition E46 Assessment & Plan Assessment & Plan (1) HTN (hypertension): Code(s): I10 - Essential (primary) hypertension Category: Medical Plan: Controlled. Continue valsartan 320 mg daily. (2) COPD (chronic obstructive pulmonary disease): Code(s): J44.9 - Chronic obstructive pulmonary disease, unspecified Category: Medical Plan: No exacerbation. Continue albuterol only as needed for shortness of breath and wheezing. Should symptoms worsen, consider maintenance inhaler. Commended on smoking cessation (3) CKD (chronic kidney disease), stage III: Code(s): N18.30 - Chronic kidney disease, stage 3 unspecified Category: Medical Plan: Evaluate renal function electrolyte levels. Avoid nephrotoxins (4) Erosive esophagitis: Code(s): K22.10 - Ulcer of esophagus without bleeding Category: Medical Plan: Stable. Continue with pantoprazole 40 mg twice daily. Follow-up with gastroenterology as scheduled (5) Lewy body disease: Code(s): G31.83 - Neurocognitive disorder with Lewy bodies; F02.80 - Dementia in other diseases classified elsewhere, unspecified severity, without behavioral disturbance, psychotic disturbance, mood disturbance, and anxiety Category: Medical Plan: With visual hallucinations and depression/anxiety. Currently stable, aware hallucinations are not real. However, concern for worsening symptoms that could result inpatient safety issues. Continue Seroquel 25 mg twice daily as well as bupropion. Psychiatry consult placed. Continue following with Neurology, note reviewed. MRI and EEG pending (6) Protein calorie malnutrition: Code(s): E46 - Unspecified protein-calorie malnutrition Category: Medical Plan: Reports difficulty eating secondary to dentures. Recommend grinding/puree eating food to help with healthier diet. Limit junk food. Recommend protein supplements with Ensure boost. We will follow weight. There has been no weight loss since last visit. Plan Follow-up in the office in 4 months, labs to be completed today Orders: Orders Basic Metabolic Panel Today I10 - Essential (primary) hypertension, K22.10 - Ulcer of esophagus without bleeding, N18.30 - Chronic kidney disease, stage 3 unspecified Liver Panel Today I10 - Essential (primary) hypertension, K22.10 - Ulcer of esophagus without bleeding, N18.30 - Chronic kidney disease, stage 3 unspecified IRON PROFILE Today D64.9 - Anemia, unspecified Complete Blood Count Auto Diff Today I10 - Essential (primary) hypertension, K22.10 - Ulcer of esophagus without bleeding, N18.30 - Chronic kidney disease, stage 3 unspecified Lipid Panel Today I10 - Essential (primary) hypertension, K22.10 - Ulcer of esophagus without bleeding, N18.30 - Chronic kidney disease, stage 3 unspecified Vitamin D 25-OH Total Today I10 - Essential (primary) hypertension, K22.10 - Ulcer of esophagus without bleeding, N18.30 - Chronic kidney disease, stage 3 unspecified Referrals Psychiatry Outpatient Consultation Service F02.80 - Dementia in other diseases classified elsewhere, unspecified severity, without behavioral disturbance, psychotic disturbance, mood disturbance, and anxiety, G31.83 - Neurocognitive disorder with Lewy bodies, R44.1 - Visual hallucinations
[2024-10-23 10:29] VITALS: BP 120/62; PULSE 83; RESP 16; TEMP 36.5; O2SAT 99; BMI 17.8
--- OUTSIDE RECORDS SUMMARY | 2024-10-23 13:01 | XMS_ITS | Clinical Summary ---
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
== END 2024-10-23 11:03 | disposition home or self-care (01) ==
LOC: HO.HMCHD 10:02
PROVIDERS: PCP Family Medicine; Visit Provider Physician Assistant
DX: I10 Essential (primary) hypertension (principal); J44.9 Chronic obstructive pulmonary disease, unspecified; N18.30 Chronic kidney disease, stage 3 unspecified; K22.10 Ulcer of esophagus without bleeding; G31.83 Neurocognitive disorder with Lewy bodies; F02.80 Dementia in other diseases classified elsewhere, unspecified severity, without behavioral disturbance, psychotic disturbance, mood disturbance, and anxiety; E46 Unspecified protein-calorie malnutrition

== ENCOUNTER 2024-11-06 11:05 | Outpatient (AMB) | payer MEDICARE, OTHER, SELFPAY ==
[2024-11-06 11:08] VITALS: BP 100/46; PULSE 97; O2SAT 99; BMI 18.0
--- NOTE | 2024-11-06 11:08 | HO.NEPHOV_ITS ---
Vital Signs 11/06/24 11:08 Height 5 ft 4 in Weight 105 lb BMI 18.0 BP 100/46 L Blood Pressure Location Lt brachial Position Sitting Pulse 97 Pulse Source Pulse Oximeter Pulse Oximetry (%) 99 Oxygen Delivery Method Room Air Intake Visit Reasons: INP: CKD STG 3, Disorder of kidney and ureter, Sales Communications Manager Required: No Accompanied by: Self / Same As Patient Allergies citalopram (Celexa) Adverse Reaction (Unknown, Verified 11/06/24 11:11) sleepiness paroxetine (Paxil) Adverse Reaction (Unknown, Verified 11/06/24 11:11) sleepiness Medication List - Last Reconciled 11/06/24 by Mitesh Bray MD albuterol sulfate 90 mcg/actuation 2 puffs inhalation Q6H atorvastatin (Lipitor) 40 mg PO DAILY bupropion HCl XL 150 mg PO DAILY cetirizine (Zyrtec) 10 mg PO DAILY PRN cholecalciferol (vitamin D3) 125 mcg PO DAILY glucosamine HCl 500 mg PO BID multivitamin 1 tab PO DAILY pantoprazole 40 mg PO BID 90 days quetiapine 25 mg PO BID 90 days valsartan (Diovan) 320 mg PO DAILY vibegron (Gemtesa) 75 mg PO DAILY 90 days vitamin E 200 units PO DAILY HPI Comments Details: - The patient is an 84-year-old female presenting with chronic kidney disease. - Chronic Kidney Disease: Recent tests show kidney function between 30% and 40%. - h/o Anemia: - Hypertension: Present for eight years, currently on valsartan 320 mg. Back [place] [address] [place] scan showed atrophic right kidney. Etiology unclear. - Hypercalcemia: Stopped calcium supplements due to high levels. She is on vitamin-D as well - Overactive Bladder: Frequent urination, reduced coffee intake. Ongoing, under urologist care. - Rectal prolapse - Dyspnea on Exertion: Difficulty breathing on exertion. - History of Smoking: Quit 23 years ago, previously heavy smoker. [facility] Medical History (Updated 11/06/24 @ 11:15 by Mitesh Bray MD) Hyperlipidemia Protein calorie malnutrition CKD (chronic kidney disease), stage III COPD (chronic obstructive pulmonary disease) Visual hallucinations Pre-op examination Weight loss Abnormal CT scan Urinary incontinence HTN (hypertension) BPV (benign positional vertigo) PVC (premature ventricular contraction) Apical lung nodule Fatty liver GERD (gastroesophageal reflux disease) Depression Rectal prolapse Internal and external prolapsed hemorrhoids Surgical History History of esophagogastroduodenoscopy (EGD) History of colonoscopy (~12/23/23) History of hernia surgery History of partial hysterectomy History of appendectomy Family History Mother Lung cancer Sister Lung cancer Social History Household Members Other:: lives with brother Housing: Apartment Are you a primary complex care nurse practitioner to a significant other at home: No Alcohol intake: current Alcohol intake frequency: holidays/special occasions only Alcohol type: beer Comment: PCP aware of falls Patient Tobacco Use Status: Former Tobacco user Tobacco use type: Cigarette Years Smoked: 50 e-Cigarette/Vaping Use: Never Used service: No Current occupational status: retired Cognitive needs: No Hearing needs: No Vision needs: Yes (Reading glasses) Physical Exam Vital Signs: Last Vital Signs Pulse 97 11/06/24 11:08 BP 100/46 L 11/06/24 11:08 Pulse Ox 99 11/06/24 11:08 Oxygen Delivery Method Room Air 11/06/24 11:08 BMI result Body Mass Index 18.0 Sitting blood pressure 100/60 Standing blood pressure 90/50 General: Awake. Comfortable. HENT: Neck supple. Mucosa moist. Pulmonary: Lungs aeration equal. No rales. Cardiology: Heart S1-S2 heard. No gallop. Abdomen: Soft. Non tender. Bowel sounds normal. Reports of diarrhea. Neurologic: No involuntary movements. No myoclonus. Reports seeing things that others do not. Extremities: No edema. No rash Results Reviewed Results Reviewed: September 2020 CT abdomen ADRENAL GLANDS: Unremarkable. KIDNEYS AND URETERS: Asymmetric right renal atrophy, new when compared to the prior examination. No renal or ureteral stone. No hydronephrosis or hydroureter. 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 Underlying renal renal artery stenosis can not be ruled out. Based on recent urine studies acute glomerular nephritis or interstitial disease seem unlikely. There could be a component of acute kidney injury due to hypoperfusion in the setting of low blood pressure and high dose of ARB Workup initiated including routine urine studies , urine protein creatinine ratio renal ultrasonogram and and serologies. (2) HTN (hypertension): Code(s): I10 - Essential (primary) hypertension Category: Medical Plan: Blood pressure is rather low today. Discontinue valsartan 320 mg. Skip valsartan for next 2 days Restart valsartan at 160 mg once a day. New prescription has been sent (3) Chronic anemia: Code(s): D64.9 - Anemia, unspecified Category: Medical Plan: Stable Workup ordered (4) Hypercalcemia: Code(s): E83.52 - Hypercalcemia Category: Medical Plan: Given the history of hypercalcemia with anemia and CKD I will check for monoclonal proteins. In the meantime hold off on using calcium supplementation Check vitamin-D levels and intact PTH levels. Orders: Orders Comprehensive Met. Panel 2 Weeks E83.52 - Hypercalcemia, N18.30 - Chronic kidney disease, stage 3 unspecified Parathyroid Hormone Intact 2 Weeks E83.52 - Hypercalcemia, N18.30 - Chronic kidney disease, stage 3 unspecified Uric Acid 2 Weeks E83.52 - Hypercalcemia, N18.30 - Chronic kidney disease, stage 3 unspecified UA and rflx microscopic 2 Weeks E83.52 - Hypercalcemia, N18.30 - Chronic kidney disease, stage 3 unspecified Anti Glomerular Basement Memb 2 Weeks E83.52 - Hypercalcemia, N18.30 - Chronic kidney disease, stage 3 unspecified Neutrophil Cytoplasma Ab 2 Weeks E83.52 - Hypercalcemia, N18.30 - Chronic kidney disease, stage 3 unspecified Protein Electrophoresis, Serum 2 Weeks E83.52 - Hypercalcemia, N18.30 - Chronic kidney disease, stage 3 unspecified Complete Blood Count Auto Diff 2 Weeks E83.52 - Hypercalcemia, N18.30 - Chronic kidney disease, stage 3 unspecified Creatinine Urine 2 Weeks E83.52 - Hypercalcemia, N18.30 - Chronic kidney disease, stage 3 unspecified Vitamin D 25-OH Total 2 Weeks E83.52 - Hypercalcemia, N18.30 - Chronic kidney disease, stage 3 unspecified Total Protein Urine Random 2 Weeks E83.52 - Hypercalcemia, N18.30 - Chronic kidney disease, stage 3 unspecified renal BI Today N18.30 - Chronic kidney disease, stage 3 unspecified Medications: Changed From valsartan (Diovan) 320 mg PO DAILY 90 tabs 1RF To valsartan 160 mg PO DAILY 90 tabs 1RF Coding Level of Care Code New Pt Level 5 (78197) Diagnoses CKD (chronic kidney disease), stage III N18.30 HTN (hypertension) I10 Chronic anemia D64.9 Hypercalcemia E83.52 Time Spent (min) 45
--- OUTSIDE RECORDS SUMMARY | 2024-11-06 12:34 | XMS_ITS | Clinical Summary ---
Author Organization [facility] ity Address [address] [place] [address] Care Team Providers Care [employer] Crew Boss Name Role Phone Unavailable Primary Care Provider [...]
== END 2024-11-06 11:50 | disposition home or self-care (01) ==
LOC: HO.HKA 11:06
PROVIDERS: PCP Physician Assistant; Referring Provider Physician Assistant; Visit Provider Internal Medicine Hypertension Specialist
DX: N18.30 Chronic kidney disease, stage 3 unspecified (principal); I10 Essential (primary) hypertension; D64.9 Anemia, unspecified; E83.52 Hypercalcemia
CPT/HCPCS: 99204

== ENCOUNTER → 2024-11-06 11:05 | Outpatient (BNVA) | payer MEDICARE, OTHER, SELFPAY | PROVIDERS: PCP Physician Assistant; Referring Provider Physician Assistant; Visit Provider Internal Medicine Hypertension Specialist | DX: I10 Essential (primary) hypertension (principal); N18.30 Chronic kidney disease, stage 3 unspecified; D64.9 Anemia, unspecified; E83.52 Hypercalcemia | CPT/HCPCS: 99202 ==

== ENCOUNTER 2024-11-14 10:11 | Outpatient (AMB) | payer MEDICARE, OTHER, SELFPAY ==
--- NOTE | 2024-11-14 10:23 | A.OFFVIS_ITS ---
Intake Visit Reasons: 2M LBD, HALLUCINATIONS Allergies citalopram (Celexa) Adverse Reaction (Unknown, Verified 11/06/24 11:11) sleepiness paroxetine (Paxil) Adverse Reaction (Unknown, Verified 11/06/24 11:11) sleepiness HPI Comments Details: Has been tired with the Seroquel. Sees lots of bugs and water. Her MRI and EEG were unremarkable. Was a bit more confused yesterday trying to operate her cell phone. Family concerned about mental status. All children live far away. She is a 83-year-old right-handed woman with a history of high blood pressure, hyperlipidemia, and GERD, who has had evaluation of visual hallucinations that started around February of 2024 when she started seeing people with kids and adults entering the door. They would not be talking. This evolved in March into seeing black spiders and bats floating around and most recently she has been seeing water coming out of the ceiling in the carbajal along with people. They seem very real. She has these visual hallucinations on a daily basis. She has not had an eye exam done but in general her vision is okay. She lives with her brother and has been for 27 years. She has 3 sons in [place] and 1 son locally. She has also noted some difficulty with short-term memory and some confusion about how to do certain things within the last month. She occasionally gets lightheaded if she gets up quick. She has had a few falls within the last year and hit her head [facility] Medical History (Updated 11/06/24 @ 11:15 by Mitesh Bray MD) Hyperlipidemia Protein calorie malnutrition CKD (chronic kidney disease), stage III COPD (chronic obstructive pulmonary disease) Visual hallucinations Pre-op examination Weight loss Abnormal CT scan Urinary incontinence HTN (hypertension) BPV (benign positional vertigo) PVC (premature ventricular contraction) Apical lung nodule Fatty liver GERD (gastroesophageal reflux disease) Depression Rectal prolapse Internal and external prolapsed hemorrhoids Surgical History History of esophagogastroduodenoscopy (EGD) History of colonoscopy (~12/23/23) History of hernia surgery History of partial hysterectomy History of appendectomy Family History Mother Lung cancer Sister Lung cancer Social History Household Members Other:: lives with brother Housing: Apartment Are you a primary critical care physician assistant to a significant other at home: No Alcohol intake: current Alcohol intake frequency: holidays/special occasions only Alcohol type: beer Comment: PCP aware of falls Patient Tobacco Use Status: Former Tobacco user Tobacco use type: Cigarette Years Smoked: 50 e-Cigarette/Vaping Use: Never Used service: No Current occupational status: retired Cognitive needs: No Hearing needs: No Vision needs: Yes (Reading glasses) Review of Systems Const Details: Sleep Difficulty getting to sleep?denies.?Difficulty maintaining sleep?denies?.?Urge to move legs?denies.?Teeth grinding?denies.?Shouting or Kicking during sleep ?denies.?Abnormal behavior during sleep?denies.?Excessive sleep?denies.?Snoring ?denies.?Daytime sleepiness?denies. ? General/Constitutional Change in appetite?denies.?Chills?denies.?Fatigue?denies.?Fever?denies.?Weight gain?denies.?Weight loss?denies. ? Ophthalmologic Blurred vision?denies.?Diminished visual acuity?denies. ? ENT Stuffiness?denies.?Decreased hearing?denies.?Dry mouth?denies.?Ear pain ?denies.?Nosebleed?denies.?Ringing in the ears?denies.?Sinus pain?denies.?Sore throat?denies.?Swollen glands?denies. ? Endocrine Cold intolerance?denies.?Excessive thirst?denies.?Frequent urination?denies.? Heat intolerance?denies. ? Respiratory Shortness of breath?denies.?Chest pain?denies.?Cough?denies. ? Breast Breast lump?denies.?Nipple discharge?denies. ? Cardiovascular Chest pain at rest?denies.?Chest pain with exertion?denies.?Claudication ?denies.?Dizziness?denies.?Fluid accumulation in the legs?denies.?Irregular heartbeat?denies.?Palpitations?denies. ? Gastrointestinal Abdominal pain?denies.?Constipation?denies.?Diarrhea?denies.?Difficulty swallowing?denies.?Heartburn?denies.?Nausea?denies.?Rectal bleeding?denies. ? Hematology Easy bruising?denies.?Prolonged bleeding?denies. ? Genitourinary Frequent urination?denies.?Urgency?denies.?Incontinence?denies.?Erectile Dysfunction?denies. ? Musculoskeletal Neck pain?denies.?Back pain?denies.?Muscle aches?denies.?Painful joints ?denies.?Sciatica?denies.?Weakness?denies. ? Podiatric Difficulty walking?denies.?Foot numbness?denies. ? Neurologic Difficulty swallowing?denies.?Balance difficulty?denies.?Coordination?normal.? Difficulty speaking?denies.?Dizziness?yes.?Fainting?denies.?Gait abnormality ?denies.?Headache?denies.?Loss of strength?denies.?Loss of use of extremity ?denies.?Low back pain?denies.?Memory loss?denies.?Seizures?denies.?Tics ?denies.?Tingling/Numbness?denies.?Transient loss of vision?denies.?Tremor ?denies. ? Psychiatric Anxiety?denies.?Auditory/visual hallucinations?visual hallucinations.?Delusions ?denies.?Depressed mood?denies.?Stressors?denies.?Substance abuse?denies.? Suicidal thoughts?denies. Physical Exam Neuro Other: Neurological Abnormal neurological findings:??none.? Mental Status:?alert and oriented X 3,?Normal attention, orientation, memory and affect.? Cranial Nerves:?Pupils are equal, round and reactive to light. Fundoscopy shows normal disc bilaterally. External occular muscles are intact. Visual banks are full, no ptosis. Face is symmetrical, no facial weakness or droop. Facial sensations are normal. Tongue protrudes in midline. Palate elevates sy mmetrically. Shoulder shrugging is normal..? Motor Examination:?Normal muscle tone, bulk and strength,?No atrophy or fasciculations,?No drift of the extended upper extremities,?Deep tendon reflexes are 2+?,?Plantars are flexor?.? Motor Strength:?Proximal Muscles (out of 5):5Distal Muscles (out of 5):5Neck Flexors (out of 5):5Neck Extensors (out of 5):5Deltoid (out of 5):5Biceps (out of 5):5Triceps (out of 5):5Serratus Anterior (out of 5):5Wrist Extensors (out of 5):5APB (out of 5):5Finger Spread (out of 5):5Ileopsoas (out of 5):5Quadriceps (out of 5):5Hamstrings (out of 5):5Tibialis Anterior (out of 5):5Peronei (out of 5):5EDB (out of 5):5Gastrocnemius (out of 5):5Straight Leg Raising:?90 degrees.? Sensory Exam:?Normal light touch, temperature, pinprick, vibration and joint- position sensations?,?Rhomberg sign is absent.? Coordination:?no ataxia,?no titubation,?ufmcon-ft-zdcd, ogqf-beav-khvp test and rapid alternating movements were normal.? Gait Exam:?Within normal limits.? Cerebellar Signs:?Qcfzhp-hd-ovax and eayp-wz-xrzb is normal,?no dysdiadochokinesia?.? Extrapyramidal System:?No tremor, rigidity with normal facial expressions,?No bradykinesia, no bradyphrenia. Normal arm swing and posture. No propulsion or retropulsion.? Speech:?Normal,?no dysphasia or dysarthria..? Mini Mental Status Exam Level of Consciousness:?Alert.? Orientation:?Knows correct year, month, date, day and season,?Knows correct city, county and state. Knows correct location and floor.? Registration:?Able to register 3 objects.? Attention:?Serial 7's performed accurately.? Recall:?Able to recall 3 out of 3 objects.? Language:?Normal spontaneous speech, fluency, repetition,naming, comprehension, reading and writing.? Total Score:?30/30.? General Examination GENERAL APPEARANCE:?normal,?in no acute distress.? HEAD:?normocephalic,?atraumatic.? EYES:?sclera non-icteric,?conjunctiva clear.? EARS:?auditory canal clear,?tympanic membrane intact, clear.? NOSE:?no lesions.? ORAL CAVITY:?gums normal,?mucosa moist,?no lesions.? THROAT:?clear.? NECK/THYROID:?no cervical lymphadenopathy,?thyroid normal,?neck supple, full range of motion,?no carotid bruit.? SKIN:?no rashes,?no significant birthmarks.? HEART:?S1, S2 normal,?no murmurs.? LUNGS:?clear anteriorly and posteriorly.? CHEST:?no gross rib deformity,?clear to auscultation.? BACK:?normal exam of spine.? EXTREMITIES:?no edema.? PERIPHERAL PULSES:?normal.? PSYCH:?alert, oriented,?cognitive function intact,?cooperative with exam.? Results Reviewed Results Reviewed: 10/05/2024 EEG: Mildly abnormal due to mild scattered background slowing consistent with mild diffuse cerebral dysfunction. 10/19/24 MRI brain: Minimal to mild chronic small-vessel ischemic gliosis. Mild diffusel cerebral atrophy. Assessment & Plan Assessment & Plan (1) Visual hallucinations: Code(s): R44.1 - Visual hallucinations Category: Medical (2) Lewy body disease: Code(s): G31.83 - Neurocognitive disorder with Lewy bodies; F02.80 - Dementia in other diseases classified elsewhere, unspecified severity, without behavioral disturbance, psychotic disturbance, mood disturbance, and anxiety Category: Medical (3) Urinary incontinence: Code(s): R32 - Unspecified urinary incontinence Category: Medical Plan Stop Quetiapine 25mg and titrate to 50 mg . Start Risperidone 0.5mg bid Medications: New risperidone 0.5 mg PO BID 180 tabs 2RF 90 days Discontinued quetiapine Discontinued Reason: Doctor's Order 25 mg PO BID 90 days 180 tabs 3RF Coding Level of Care Code Est Pt Level 4 (87754) Diagnoses Visual hallucinations R44.1 Lewy body disease G31.83; F02.80 Urinary incontinence R32
--- NOTE | 2024-11-14 10:41 | MHC.OFFVIS ---
Intake Visit Reasons: 2M LBD, HALLUCINATIONS Allergies citalopram (Celexa) Adverse Reaction (Unknown, Verified 11/06/24 11:11) sleepiness paroxetine (Paxil) Adverse Reaction (Unknown, Verified 11/06/24 11:11) sleepiness PFSH Medical History (Updated 11/06/24 @ 11:15 by Mitesh Bray MD) Hyperlipidemia Protein calorie malnutrition CKD (chronic kidney disease), stage III COPD (chronic obstructive pulmonary disease) Visual hallucinations Pre-op examination Weight loss Abnormal CT scan Urinary incontinence HTN (hypertension) BPV (benign positional vertigo) PVC (premature ventricular contraction) Apical lung nodule Fatty liver GERD (gastroesophageal reflux disease) Depression Rectal prolapse Internal and external prolapsed hemorrhoids Surgical History History of esophagogastroduodenoscopy (EGD) History of colonoscopy (~12/23/23) History of hernia surgery History of partial hysterectomy History of appendectomy Family History Mother Lung cancer Sister Lung cancer Social History Household Members Other:: lives with brother Housing: Apartment Are you a primary complex care nurse to a significant other at home: No Alcohol intake: current Alcohol intake frequency: holidays/special occasions only Alcohol type: beer Comment: PCP aware of falls Patient Tobacco Use Status: Former Tobacco user Tobacco use type: Cigarette Years Smoked: 50 e-Cigarette/Vaping Use: Never Used service: No Current occupational status: retired Cognitive needs: No Hearing needs: No Vision needs: Yes (Reading glasses) Assessment & Plan Assessment & Plan (1) Visual hallucinations: Code(s): R44.1 - Visual hallucinations Category: Medical (2) Lewy body disease: Code(s): G31.83 - Neurocognitive disorder with Lewy bodies; F02.80 - Dementia in other diseases classified elsewhere, unspecified severity, without behavioral disturbance, psychotic disturbance, mood disturbance, and anxiety Category: Medical (3) Urinary incontinence: Code(s): R32 - Unspecified urinary incontinence Category: Medical Plan Trial of Risperidone 0.5 mg bid. If it does not work , will try Nuplazid Medications: New risperidone 0.5 mg PO BID 180 tabs 2RF 90 days Discontinued quetiapine Discontinued Reason: Doctor's Order 25 mg PO BID 90 days 180 tabs 3RF Coding Level of Care Code Est Pt Level 4 (13784) Diagnoses Visual hallucinations R44.1 Lewy body disease G31.83; F02.80 Urinary incontinence R32
== END 2024-11-14 10:49 | disposition home or self-care (01) ==
LOC: HO.HSM 10:12
PROVIDERS: PCP Family Medicine; Visit Provider Psychiatry & Neurology Neurology
DX: R44.1 Visual hallucinations (principal); G31.83 Neurocognitive disorder with Lewy bodies; F02.80 Dementia in other diseases classified elsewhere, unspecified severity, without behavioral disturbance, psychotic disturbance, mood disturbance, and anxiety; R32 Unspecified urinary incontinence
CPT/HCPCS: 99214

== ENCOUNTER → 2024-11-14 10:11 | Outpatient (BNVA) | payer MEDICARE, OTHER, SELFPAY | PROVIDERS: PCP Family Medicine; Visit Provider Psychiatry & Neurology Neurology | DX: R44.1 Visual hallucinations (principal); G31.83 Neurocognitive disorder with Lewy bodies; F02.80 Dementia in other diseases classified elsewhere, unspecified severity, without behavioral disturbance, psychotic disturbance, mood disturbance, and anxiety; R32 Unspecified urinary incontinence | CPT/HCPCS: 99212 ==

== ENCOUNTER 2024-11-20 08:49 | Outpatient (REF) | payer MEDICARE, OTHER, SELFPAY ==
--- NOTE | ~2024-11-20 | US_ITS ---
CLINICAL HISTORY: N18.30 - Chronic kidney disease, stage 3 unspecified US Renal Comparison: None provided Findings: Right kidney small in size, 6.1 cm length. Mild right renal pelviectasis is present. Left kidney normal size and echotexture, 9.9 cm length. 0.8 cm anechoic left renal cyst is present. IMPRESSION: 1. Small-sized right kidney with mild right renal pelviectasis. 2. 0.8 cm simple left renal cyst. This document has been electronically signed by: Nannette Webb on 11/21/2024 10:01:08
[2024-11-20 09:10] LABS: MANUAL DIFF FLAG NO
--- OUTSIDE RECORDS SUMMARY | 2024-11-20 09:22 | XMS_ITS | Clinical Summary ---
Author Organization [facility] ity Address [address] [place] [address] Care Team Providers Care Billing Assistant Name Role Phone Unavailable Primary Care Provider [...]
[2024-11-20 10:12] LABS: Hematocrit 32.2 % (37.0-47.0); Hemoglobin 10.3 g/dl (12.0-16.0); Imm Gran Abs Auto 0.01 X10*3/uL (0.00-0.03); Imm Gran Pct Auto 0.2 % (0.0-0.4); Lymphocytes Absolute Auto 1.2 X10*3/uL (1.2-4.9); Mean Corpuscular HGB Conc 32.0 g/dl (31.0-35.0); Mean Corpuscular Hemoglobin 28.4 pg (27.0-33.0); Mean Corpuscular Volume 88.7 fL (80.0-98.0); NRBC Abs Auto 0.000 X10*3/uL (0.0-0.012); NRBC Pct Auto 0.0 /100WBC (0.0-0.2); Platelet Count 177 X10*3/uL (160-400); Red Blood Count 3.63 X10*6/uL (4.20-5.50); White Blood Count 4.8 X10*3/uL (4.8-10.8)
[2024-11-20 10:46] LABS: Parathyroid Hormone Intact 61.9 pg/mL (8.7-77.1)
[2024-11-20 11:00] LABS: Total Protein Urine Random 10 mg/dL (<12)
[2024-11-20 12:11] LABS: Alanine Aminotransferase 23 U/L (0-31); Albumin Level 4.1 g/dL (3.5-5.0); Alkaline Phosphatase 84 U/L (39-117); Anion Gap 13 (12-20); Aspartate Amino Transferase 33 U/L (5-31); Blood Urea Nitrogen 27 mg/dL (9-16); Calcium 9.9 mg/dL (8.4-10.2); Carbon Dioxide 25 mmol/L (22-29); Chloride 114 mmol/L (96-108); Estimated Glomerular Filt Rate 36; Potassium 4.4 mmol/L (3.3-5.1); Sodium 148 mmol/L (135-145); Total Protein 6.7 g/dL (6.5-8.0); Uric Acid 6.5 mg/dL (2.4-5.7)
[2024-11-20 13:32] LABS: Appearance Urine Clear; Glucose Urine UA Negative (Negative); PH 5.5 (5.0-9.0); Specific Gravity - Urine 1.015 (1.005-1.025)
[2024-11-21 17:49] LABS: Anti Glomerular Basement Memb <1.0 AI
[2024-11-23 12:33] LABS: Neutrophil Cyto Ab Screen NEGATIVE (NEGATIVE)
[2024-11-23 22:03] LABS: Prot Elec - Albumin 3.7 g/dL (3.8-4.8); Prot Elec - Alpha1 0.4 g/dL (0.2-0.3); Prot Elec - Alpha2 0.7 g/dL (0.5-0.9); Prot Elec - Beta 1 0.5 g/dL (0.4-0.6); Prot Elec - Beta 2 0.4 g/dL (0.2-0.5); Prot Elec - Gamma 0.8 g/dL (0.8-1.7); Prot Elec - Total Protein 6.5 g/dL (6.1-8.1)
== END 2024-11-20 08:50 | disposition home or self-care (01) ==
LOC: HO.US 08:49
PROVIDERS: PCP Physician Assistant; Visit Provider Internal Medicine Hypertension Specialist
DX: N18.30 Chronic kidney disease, stage 3 unspecified (principal); E83.52 Hypercalcemia
CPT/HCPCS: 36415; 76775; 80053; 81003; 82306; 82570; 83520; 83970; 84156; 84165; 84550; 85025; 86036

== ENCOUNTER → 2024-11-20 09:14 | Outpatient (BNV) | payer MEDICARE, OTHER, SELFPAY | PROVIDERS: PCP Physician Assistant; Visit Provider Radiology Vascular & Interventional Radiology | DX: N28.1 Cyst of kidney, acquired (principal); N27.0 Small kidney, unilateral; N28.89 Other specified disorders of kidney and ureter | CPT/HCPCS: 76775 ==

== ENCOUNTER 2024-12-03 13:14 | Outpatient (AMB) | payer MEDICARE, OTHER, SELFPAY ==
[2024-12-03 13:22] VITALS: BP 110/54; PULSE 47; O2SAT 98; BMI 18.9
--- NOTE | 2024-12-03 13:22 | HO.NEPHOV_ITS ---
Vital Signs 12/03/24 13:22 Height 5 ft 4 in Weight 110 lb BMI 18.9 BP 110/54 L Blood Pressure Location Lt brachial Position Sitting Pulse 47 L Pulse Source Pulse Oximeter Pulse Oximetry (%) 98 Oxygen Delivery Method Room Air Intake Visit Reasons: 3wk f/u w/labs conf Hoop Machine Operator Required: No Accompanied by: Self / Same As Patient Allergies citalopram (Celexa) Adverse Reaction (Unknown, Verified 12/03/24 13:24) sleepiness paroxetine (Paxil) Adverse Reaction (Unknown, Verified 12/03/24 13:24) sleepiness Medication List - Last Reconciled 12/03/24 by Mitesh Bray MD albuterol sulfate 90 mcg/actuation 2 puffs inhalation Q6H atorvastatin (Lipitor) 40 mg PO DAILY bupropion HCl XL 150 mg PO DAILY cetirizine (Zyrtec) 10 mg PO DAILY PRN cholecalciferol (vitamin D3) 125 mcg PO DAILY glucosamine HCl 500 mg PO BID multivitamin 1 tab PO DAILY pantoprazole 40 mg PO BID 90 days risperidone 0.5 mg PO BID 90 days valsartan 160 mg PO DAILY vibegron (Gemtesa) 75 mg PO DAILY 90 days vitamin E 200 units PO DAILY HPI Comments Details: - The patient is an 84-year-old female presenting with chronic kidney disease. - Chronic Kidney Disease: Recent tests show kidney function between 30% and 40%. - h/o Anemia: - Hypertension: Present for eight years, currently on valsartan 320 mg. Back [place] [address] CT scan showed atrophic right kidney. Etiology unclear. - Hypercalcemia: Stopped calcium supplements due to high levels. She is on vitamin-D as well - Overactive Bladder: Frequent urination, reduced coffee intake. Ongoing, under urologist care. - Rectal prolapse - Dyspnea on Exertion: Difficulty breathing on exertion. - History of Smoking: Quit 23 years ago, previously heavy smoker. 12/03/24 - The patient is an 84-year-old female presenting with monitoring of kidney function, blood pressure, and calcium levels. - Hypertension: On valsartan 160 mg, contributing to low BP 110/54 mmHg. - Dehydration: Inadequate water intake, primarily coffee, contributing to elevated sodium. - Orthostatic hypotension: Dizziness and balance issues on standing, related to low BP and medication. - Hypercalcemia: Previously elevated calcium levels now normalized. - Preventative care: Ongoing monitoring of kidney function and calcium levels. [facility] Medical History (Updated 11/06/24 @ 11:15 by Mitesh Bray MD) Hyperlipidemia Protein calorie malnutrition CKD (chronic kidney disease), stage III COPD (chronic obstructive pulmonary disease) Visual hallucinations Pre-op examination Weight loss Abnormal CT scan Urinary incontinence HTN (hypertension) BPV (benign positional vertigo) PVC (premature ventricular contraction) Apical lung nodule Fatty liver GERD (gastroesophageal reflux disease) Depression Rectal prolapse Internal and external prolapsed hemorrhoids Surgical History History of esophagogastroduodenoscopy (EGD) History of colonoscopy (~12/23/23) History of hernia surgery History of partial hysterectomy History of appendectomy Family History Mother Lung cancer Sister Lung cancer Social History Household Members Other:: lives with brother Housing: Apartment Are you a primary day care home provider to a significant other at home: No Alcohol intake: current Alcohol intake frequency: holidays/special occasions only Alcohol type: beer Comment: PCP aware of falls Patient Tobacco Use Status: Former Tobacco user Tobacco use type: Cigarette Years Smoked: 50 e-Cigarette/Vaping Use: Never Used service: No Current occupational status: retired Cognitive needs: No Hearing needs: No Vision needs: Yes (Reading glasses) Physical Exam Vital Signs: Last Vital Signs Pulse 47 L 12/03/24 13:22 BP 110/54 L 12/03/24 13:22 Pulse Ox 98 12/03/24 13:22 Oxygen Delivery Method Room Air 12/03/24 13:22 BMI result Body Mass Index 18.9 Results Reviewed Results Reviewed: USG 1. Small-sized right kidney with mild right renal pelviectasis. 2. 0.8 cm simple left renal cyst. Nephrology Results: Hgb, (12.0-16.0) 10.3 g/dl L 11/20/24 WBC, (4.8-10.8) 4.8 X10*3/uL 11/20/24 Plt Count, (160-400) 177 X10*3/uL 11/20/24 Sodium, (135-145) 148 mmol/L H 11/20/24 Potassium, (3.3-5.1) 4.4 mmol/L 11/20/24 Chloride, (96-108) 114 mmol/L H 11/20/24 Carbon Dioxide, (22-29) 25 mmol/L 11/20/24 BUN, (9-16) 27 mg/dL H 11/20/24 Creatinine, (0.5-1.4) 1.41 mg/dL H 11/20/24 Calcium, (8.4-10.2) 9.9 mg/dL 11/20/24 PTH Intact, (8.7-77.1) 61.9 pg/mL 11/20/24 Urine Protein, (Neg-Trace) Negative mg/dL 11/20/24 Urine Creatinine 149.19 mg/dL 11/20/24 Renal US 11/21/24 Assessment & Plan Assessment & Plan (1) CKD (chronic kidney disease), stage III: Code(s): N18.30 - Chronic kidney disease, stage 3 unspecified Category: Medical Plan: 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 She has atrophic right kidney. Underlying renal renal artery stenosis can not be ruled out. Based on recent urine studies acute glomerular nephritis or interstitial disease seem unlikely. There could be a component of acute kidney injury due to hypoperfusion in the setting of low blood pressure and high dose of ARB Workup initiated including routine urine studies , urine protein creatinine ratio renal ultrasonogram and and serologies were normal (2) HTN (hypertension): Code(s): I10 - Essential (primary) hypertension Category: Medical Plan: Blood pressure is rather low today. Changed valsartan 320 mg to valsartan at 160 mg once a day. BP is still relatively low Will decrease VALSARTAN to 80 mg daily (3) Chronic anemia: Code(s): D64.9 - Anemia, unspecified Category: Medical Plan: Stable (4) Hypercalcemia: Code(s): E83.52 - Hypercalcemia Category: Medical Plan: vitamin-D levels and intact PTH levels were normal Repeat Ca is normal Orders: Orders Basic Metabolic Panel 4 Months I10 - Essential (primary) hypertension Medications: Changed From valsartan 160 mg PO DAILY 90 tabs 1RF To valsartan 80 mg PO DAILY 90 tabs 1RF Coding Level of Care Code Est Pt Level 4 (97933) Diagnoses CKD (chronic kidney disease), stage III N18.30 HTN (hypertension) I10 Chronic anemia D64.9 Hypercalcemia E83.52
--- OUTSIDE RECORDS SUMMARY | 2024-12-03 16:51 | XMS_ITS | Clinical Summary ---
Author Organization [facility] ity Address [address] [place] [address] Care Team Providers Care Software Developer Name Role Phone Unavailable Primary Care Provider [...]
== END 2024-12-03 13:38 | disposition home or self-care (01) ==
LOC: HO.HKA 13:14
PROVIDERS: PCP Physician Assistant; Visit Provider Internal Medicine Hypertension Specialist
DX: N18.30 Chronic kidney disease, stage 3 unspecified (principal); I10 Essential (primary) hypertension; D64.9 Anemia, unspecified; E83.52 Hypercalcemia
CPT/HCPCS: 99214

== ENCOUNTER → 2024-12-03 13:14 | Outpatient (BNVA) | payer MEDICARE, OTHER, SELFPAY | PROVIDERS: PCP Physician Assistant; Visit Provider Internal Medicine Hypertension Specialist | DX: I12.9 Hypertensive chronic kidney disease with stage 1 through stage 4 chronic kidney disease, or unspecified chronic kidney disease (principal); N18.30 Chronic kidney disease, stage 3 unspecified; Z87.891 Personal history of nicotine dependence; D64.9 Anemia, unspecified; E83.52 Hypercalcemia | CPT/HCPCS: 99212 ==

== ENCOUNTER 2025-01-01 11:17 | Outpatient (AMB) | payer MEDICARE, OTHER, SELFPAY ==
--- NOTE | 2025-01-01 11:20 | MHC.OFFVIS ---
Intake Visit Reasons: 6 weeks Allergies citalopram (Celexa) Adverse Reaction (Unknown, Verified 12/03/24 13:24) sleepiness paroxetine (Paxil) Adverse Reaction (Unknown, Verified 12/03/24 13:24) sleepiness Medication List - Last Reconciled 01/01/25 by Joe Curry MD albuterol sulfate 90 mcg/actuation 2 puffs inhalation Q6H atorvastatin (Lipitor) 40 mg PO DAILY bupropion HCl XL 150 mg PO DAILY cetirizine (Zyrtec) 10 mg PO DAILY PRN cholecalciferol (vitamin D3) 125 mcg PO DAILY glucosamine HCl 500 mg PO BID multivitamin 1 tab PO DAILY pantoprazole 40 mg PO BID 90 days risperidone 0.5 mg PO BID 90 days valsartan 80 mg PO DAILY vibegron (Gemtesa) 75 mg PO DAILY 90 days vitamin E 200 units PO DAILY HPI Comments Details: Has been tired with the Seroquel. Currently on Risperdal. Sees lots of bugs, children around, and wate coming out of carbajal and ceiling. Her MRI and EEG were unremarkable. Lives with her brother. Family concerned about mental status. All children live far away. She has a history of high blood pressure, hyperlipidemia, and GERD, who developed visual hallucinations around February of 2024 when she started seeing people with kids and adults entering the door. They would not be talking. This evolved in March into seeing black spiders and bats floating around and most recently she has been seeing water coming out of the ceiling in the crabajal along with people. They seem very real. She has these visual hallucinations on a daily basis. She has not had an eye exam done but in general her vision is okay. She lives with her brother and has been for 27 years. She has 3 sons in [place] and 1 son locally. She has also noted some difficulty with short-term memory and some confusion about how to do certain things within the last month. She occasionally gets lightheaded if she gets up quick. She has had a few falls within the last year and hit her head [facility] Medical History (Updated 11/06/24 @ 11:15 by Mitesh Bray MD) Hyperlipidemia Protein calorie malnutrition CKD (chronic kidney disease), stage III COPD (chronic obstructive pulmonary disease) Visual hallucinations Pre-op examination Weight loss Abnormal CT scan Urinary incontinence HTN (hypertension) BPV (benign positional vertigo) PVC (premature ventricular contraction) Apical lung nodule Fatty liver GERD (gastroesophageal reflux disease) Depression Rectal prolapse Internal and external prolapsed hemorrhoids Surgical History History of esophagogastroduodenoscopy (EGD) History of colonoscopy (~12/23/23) History of hernia surgery History of partial hysterectomy History of appendectomy Family History Mother Lung cancer Sister Lung cancer Social History Household Members Other:: lives with brother Housing: Apartment Are you a primary health care specialist to a significant other at home: No Alcohol intake: current Alcohol intake frequency: holidays/special occasions only Alcohol type: beer Comment: PCP aware of falls Patient Tobacco Use Status: Former Tobacco user Tobacco use type: Cigarette Years Smoked: 50 e-Cigarette/Vaping Use: Never Used service: No Current occupational status: retired Cognitive needs: No Hearing needs: No Vision needs: Yes (Reading glasses) Review of Systems Const Details: Sleep Difficulty getting to sleep?denies.?Difficulty maintaining sleep?denies?.?Urge to move legs?denies.?Teeth grinding?denies.?Shouting or Kicking during sleep?denies.?Abnormal behavior during sleep?denies.?Excessive sleep?denies.?Snoring?denies.?Daytime sleepiness?denies. ? General/Constitutional Change in appetite?denies.?Chills?denies.?Fatigue?denies.?Fever?denies.?Weight gain?denies.?Weight loss?denies. ? Ophthalmologic Blurred vision?denies.?Diminished visual acuity?denies. ? ENT Stuffiness?denies.?Decreased hearing?denies.?Dry mouth?denies.?Ear pain?denies.?Nosebleed?denies.?Ringing in the ears?denies.?Sinus pain?denies.?Sore throat?denies.?Swollen glands?denies. ? Endocrine Cold intolerance?denies.?Excessive thirst?denies.?Frequent urination?denies.?Heat intolerance?denies. ? Respiratory Shortness of breath?denies.?Chest pain?denies.?Cough?denies. ? Breast Breast lump?denies.?Nipple discharge?denies. ? Cardiovascular Chest pain at rest?denies.?Chest pain with exertion?denies.?Claudication?denies.?Dizziness?denies.?Fluid accumulation in the legs?denies.?Irregular heartbeat?denies.?Palpitations?denies. ? Gastrointestinal Abdominal pain?denies.?Constipation?denies.?Diarrhea?denies.?Difficulty swallowing?denies.?Heartburn?denies.?Nausea?denies.?Rectal bleeding?denies. ? Hematology Easy bruising?denies.?Prolonged bleeding?denies. ? Genitourinary Frequent urination?denies.?Urgency?denies.?Incontinence?denies.?Erectile Dysfunction?denies. ? Musculoskeletal Neck pain?denies.?Back pain?denies.?Muscle aches?denies.?Painful joints?denies.?Sciatica?denies.?Weakness?denies. ? Podiatric Difficulty walking?denies.?Foot numbness?denies. ? Neurologic Difficulty swallowing?denies.?Balance difficulty?denies.?Coordination?normal.?Difficulty speaking?denies.?Dizziness?yes.?Fainting?denies.?Gait abnormality?denies.?Headache?denies.?Loss of strength?denies.?Loss of use of extremity?denies.?Low back pain?denies.?Memory loss?denies.?Seizures?denies.?Tics?denies.?Tingling/Numbness?denies.?Transient loss of vision?denies.?Tremor?denies. ? Psychiatric Anxiety?denies.?Auditory/visual hallucinations?visual hallucinations.?Delusions?denies.?Depressed mood?denies.?Stressors?denies.?Substance abuse?denies.?Suicidal thoughts?denies. Physical Exam Neuro Other: Neurological Abnormal neurological findings:??none.? Mental Status:?alert and oriented X 3,?Normal attention, orientation, memory and affect.? Cranial Nerves:?Pupils are equal, round and reactive to light. Fundoscopy shows normal disc bilaterally. External occular muscles are intact. Visual banks are full, no ptosis. Face is symmetrical, no facial weakness or droop. Facial sensations are normal. Tongue protrudes in midline. Palate elevates symmetrically. Shoulder shrugging is normal..? Motor Examination:?Normal muscle tone, bulk and strength,?No atrophy or fasciculations,?No drift of the extended upper extremities,?Deep tendon reflexes are 2+?,?Plantars are flexor?.? Motor Strength:?Proximal Muscles (out of 5):5Distal Muscles (out of 5):5Neck Flexors (out of 5):5Neck Extensors (out of 5):5Deltoid (out of 5):5Biceps (out of 5):5Triceps (out of 5):5Serratus Anterior (out of 5):5Wrist Extensors (out of 5):5APB (out of 5):5Finger Spread (out of 5):5Ileopsoas (out of 5):5Quadriceps (out of 5):5Hamstrings (out of 5):5Tibialis Anterior (out of 5):5Peronei (out of 5):5EDB (out of 5):5Gastrocnemius (out of 5):5Straight Leg Raising:?90 degrees.? Sensory Exam:?Normal light touch, temperature, pinprick, vibration and joint-position sensations?,?Rhomberg sign is absent.? Coordination:?no ataxia,?no titubation,?[id number], [id number]-[id number] test and rapid alternating movements were normal.? Gait Exam:?Within normal limits.? Cerebellar Signs:?[id number]-[id number] and nnnx-pn-ylva is normal,?no dysdiadochokinesia?.? Extrapyramidal System:?No tremor, rigidity with normal facial expressions,?No bradykinesia, no bradyphrenia. Normal arm swing and posture. No propulsion or retropulsion.? Speech:?Normal,?no dysphasia or dysarthria..? Mini Mental Status Exam Level of Consciousness:?Alert.? Orientation:?Knows correct year, month, date, day and season,?Knows correct city, county and state. Knows correct location and floor.? Registration:?Able to register 3 objects.? Attention:?Serial 7's performed accurately.? Recall:?Able to recall 3 out of 3 objects.? Language:?Normal spontaneous speech, fluency, repetition,naming, comprehension, reading and writing.? Total Score:?30/30.? General Examination GENERAL APPEARANCE:?normal,?in no acute distress.? HEAD:?normocephalic,?atraumatic.? EYES:?sclera non-icteric,?conjunctiva clear.? EARS:?auditory canal clear,?tympanic membrane intact, clear.? NOSE:?no lesions.? ORAL CAVITY:?gums normal,?mucosa moist,?no lesions.? THROAT:?clear.? NECK/THYROID:?no cervical lymphadenopathy,?thyroid normal,?neck supple, full range of motion,?no carotid bruit.? SKIN:?no rashes,?no significant birthmarks.? HEART:?S1, S2 normal,?no murmurs.? LUNGS:?clear anteriorly and posteriorly.? CHEST:?no gross rib deformity,?clear to auscultation.? BACK:?normal exam of spine.? EXTREMITIES:?no edema.? PERIPHERAL PULSES:?normal.? PSYCH:?alert, oriented,?cognitive function intact,?cooperative with exam.? Assessment & Plan Assessment & Plan (1) Visual hallucinations: Code(s): R44.1 - Visual hallucinations Category: Medical (2) Lewy body disease: Code(s): G31.83 - Neurocognitive disorder with Lewy bodies; F02.80 - Dementia in other diseases classified elsewhere, unspecified severity, without behavioral disturbance, psychotic disturbance, mood disturbance, and anxiety Category: Medical (3) Urinary incontinence: Code(s): R32 - Unspecified urinary incontinence Category: Medical Plan Continue Risperidone 0.5 mg bid. If it does not work , will try Nuplazid on her next visit Coding Level of Care Code Est Pt Level 4 (31707) Diagnoses Visual hallucinations R44.1 Lewy body disease G31.83; F02.80 Urinary incontinence R32
--- OUTSIDE RECORDS SUMMARY | 2025-01-01 15:00 | XMS_ITS | Clinical Summary ---
Author Organization [facility] ity Address [address] [place] [address] Care Team Providers Care Transformer Assembly Supervisor Name Role Phone Unavailable Primary Care Provider [...] Depression Screening 02/08/2024 COVID-19 Vaccine (1 - 2024-2 6 season) 2024 Influenza Vaccine (#1) 2024 HIB [...]
== END 2025-01-01 11:37 | disposition home or self-care (01) ==
LOC: HO.HSM 11:17
PROVIDERS: PCP Family Medicine; Visit Provider Psychiatry & Neurology Neurology
DX: R44.1 Visual hallucinations (principal); G31.83 Neurocognitive disorder with Lewy bodies; F02.80 Dementia in other diseases classified elsewhere, unspecified severity, without behavioral disturbance, psychotic disturbance, mood disturbance, and anxiety; R32 Unspecified urinary incontinence
CPT/HCPCS: 99214

== ENCOUNTER → 2025-01-01 11:17 | Outpatient (BNVA) | payer MEDICARE, OTHER, SELFPAY | PROVIDERS: PCP Family Medicine; Visit Provider Psychiatry & Neurology Neurology | DX: R44.1 Visual hallucinations (principal); G31.83 Neurocognitive disorder with Lewy bodies; F02.80 Dementia in other diseases classified elsewhere, unspecified severity, without behavioral disturbance, psychotic disturbance, mood disturbance, and anxiety; R32 Unspecified urinary incontinence; R29.6 Repeated falls | CPT/HCPCS: 99212 ==